=== PATIENT | female | born 1995 | race Caucasian/White ===

== ENCOUNTER 2018-12-03 08:57 | Emergency (ER) | payer MEDICAID, OTHER ==
[~2018-12-03] VITALS: Ht 165.1 cm; Wt 63.5 kg
--- OUTSIDE RECORDS SUMMARY | 2018-12-03 09:02 | XMS REPORT ---
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 [address] [facility] [id number] [address] Jan, IMMUNIZATIONS No Known Immunizations SOCIAL HISTORY Never Assessed REASON FOR VISIT Requests return call PLAN OF CARE VITAL SIGNS MEDICATIONS Unknown Medications RESULTS No Results PROCEDURES No Known procedures INSTRUCTIONS MEDICATIONS ADMINISTERED No Known Medications
[2018-12-03] MEDS ORDERED: NS IV 1000 ML 1,000 ML IV ONE (09:26)
[2018-12-03] MEDS ORDERED: FAMOTIDINE 20MG/2ML IV (PEPCID) IVP ONE (09:30)
[2018-12-03] MEDS ORDERED: ANTACID SUSP 30 ML UDC (MYLANTA) PO ONE (09:30)
[2018-12-03] MEDS ORDERED: ONDANSETRON 4 MG/2 ML (SDV) Z0FRAN IVP ONE (09:30)
[2018-12-03] MEDS ORDERED: LIDOCAINE 2% VISCOUS 15 ML UDC PO ONE (09:30)
[2018-12-03 09:43] LABS: BASOPHILS # (AUTO) 0.1 10^3/uL (0.0-0.1); BASOPHILS % (AUTO) 1 % (0-10); EOSINOPHILS # (AUTO) 0.1 10^3/uL (0.0-0.3); EOSINOPHILS % (AUTO) 1 % (0-10); HEMATOCRIT 45 % (35-52); HEMOGLOBIN 14.5 G/DL (11.5-16.0); LYMPHOCYTES # (AUTO) 2.8 X 10^3 (1.0-4.0); LYMPHOCYTES % (AUTO) 39 % (12-44); MEAN CORPUSCULAR HEMOGLOBIN 28 PG (25-34); MEAN CORPUSCULAR HGB CONC 32 G/DL (32-36); MEAN CORPUSCULAR VOLUME 88 FL (80-99); MEAN PLATELET VOLUME 10.8 FL (7.4-10.4); MONOCYTES # (AUTO) 0.8 X 10^3 (0.0-1.0); MONOCYTES % (AUTO) 11 % (0-12); NEUTROPHILS # (AUTO) 3.5 X 10^3 (1.8-7.8); NEUTROPHILS % (AUTO) 49 % (42-75); PLATELET COUNT 244 10^3/uL (130-400); RED CELL DISTRIBUTION WIDTH 14.3 % (10.0-14.5); WHITE BLOOD COUNT 7.2 10^3/uL (4.3-11.0)
[2018-12-03 09:47] LABS: ALANINE AMINOTRANSFERASE 35 U/L (0-55); ALBUMIN 4.5 GM/DL (3.2-4.5); ALKALINE PHOSPHATASE 72 U/L (40-136); BILIRUBIN,TOTAL 0.6 MG/DL (0.1-1.0); BUN/CREATININE RATIO 18; CALCIUM 9.7 MG/DL (8.5-10.1); CARBON DIOXIDE 23 MMOL/L (21-32); CHLORIDE 106 MMOL/L (98-107); CREATININE SERUM 0.67 MG/DL (0.60-1.30); GFR ESTIMATED > 60; GLUCOSE 92 MG/DL (70-105); LIPASE 22 U/L (8-78); POTASSIUM 4.1 MMOL/L (3.6-5.0); SODIUM 137 MMOL/L (135-145); TOTAL PROTEIN 7.5 GM/DL (6.4-8.2)
[2018-12-03 09:59] LABS: BILIRUBIN,URINE NEGATIVE (NEGATIVE); CLARITY,URINE CLEAR; COLOR,URINE YELLOW; GLUCOSE, URINE (UA) NEGATIVE (NEGATIVE); KETONES,URINE NEGATIVE (NEGATIVE); LEUKOCYTE ESTERASE ,URINE 1+ (NEGATIVE); NITRITE,URINE NEGATIVE (NEGATIVE); PH,URINE 7 (5-9); PROTEIN,URINE NEGATIVE (NEGATIVE); UROBILINOGEN,URINE NORMAL (NORMAL)
[2018-12-03 10:07] LABS: BACTERIA,URINE NEGATIVE /HPF
--- NOTE | 2018-12-03 10:31 | NUR ---
PT CONTINUES TO COMPLAIN OF PAIN. NOTIFGABRIELLA.
[2018-12-03] MEDS ORDERED: fentaNYL INJECTION 100 MCG/2 ML AMP IVP ONE (10:45)
--- NOTE | 2018-12-03 11:11 | NUR ---
PT STATES SHE IS FEELING BETTER AFTER THE FENTENYL.
--- NOTE | 2018-12-03 11:28 | Diagnostic Imaging Report ---
EXAM: RIGHT UPPER QUADRANT ULTRASOUND DATE: December 03, 2018. COMPARISON: None. INDICATION: 23-year-old female, abdominal pain. PROCEDURE: Two-dimensional grayscale and color doppler ultrasound examination of the right upper quadrant is performed. FINDINGS: Liver: The liver is of normal size and echotexture without solid or cystic masses. Bile ducts and gallbladder: There is no pericholecystic fluid, gallbladder wall thickening or gallstones. The gallbladder wall measures 0.2 cm. There is no intrahepatic or extrahepatic biliary ductal dilation. The common bile duct measures 0.4 cm. Right kidney: Unremarkable right kidney. No hydronephrosis. The right kidney measures 9.8 cm x 4.3 cm x 5.6 cm. Pancreas: The pancreas is not well seen. IMPRESSION: 1. The pancreas is not well seen. 2. Additional right upper quadrant ultrasound evaluation is unremarkable. Dictated by: Dictated on workstation # [id number]
[2018-12-03] MEDS ORDERED: FAMO-119 PO (11:43)
[2018-12-03] MEDS ORDERED: OMEP20TA7 PO (11:43)
--- NOTE | 2018-12-03 11:45 | ED Abdominal Pain ---
General Chief Complaint: Abdominal/GI Problems Stated Complaint: ABD PAIN Nursing Triage Note: ABD PAIN WITH VOMITING STARTING LAST NIGHT. STATES SHE DRANK TWO DAYS AGO AND HAS A HX OF STOMACH ULCERS. Sepsis Screen: No Definite Risk Source of Information: Patient Exam Limitations: No Limitations History of Present Illness Date Seen by Provider: December 03, 2018 Time Seen by Provider: 09:13 Initial Comments This 23-year-old young lady presents to the emergency room with complaints of epigastric pain and nausea. Pain started around 22:00 last night. She does have a history of suspected ulcers and has had similar episodes previously. She notes pain is particularly associated with alcohol consumption. She did drink alcohol the evening of November 29. She took ibuprofen this morning without benefit. She has not had anything to eat or drink this morning. She also reports increased stress with a in the family. Last visual period was November 11. She denies any nausea at this time. She has no local primary care provider. Allergies and Home Medications Allergies Coded Allergies: Penicillins (Verified Allergy, Unknown, 12/03/18) vancomycin (Verified Allergy, Unknown, 12/03/18) Home Medications Famotidine 20 Mg Tablet, 20 MG PO BID Prescribed by: ZOEY RODRIGUEZ on 12/03/18 1143 Hydrocodone Bit/Acetaminophen 1 Tab Tab, 1 EACH PO Q4-6HR PRN for PAIN-MODERATE Prescribed by: ZOEY RODRIGUEZ on 12/03/18 1148 Omeprazole 20 Mg Tablet.dr, 20 MG PO BID Prescribed by: ZOEY RODRIGUEZ on 12/03/18 1143 Patient Home Medication List Home Medication List Reviewed: Yes Review of Systems Review of Systems Constitutional: no symptoms reported EENTM: No Symptoms Reported Respiratory: No Symptoms Reported Cardiovascular: No Symptoms Reported Gastrointestinal: See HPI Genitourinary: No Symptoms Reported Musculoskeletal: no symptoms reported Skin: no symptoms reported Psychiatric/Neurological: No Symptoms Reported Endocrine: No Symptoms Reported Hematologic/Lymphatic: No Symptoms Reported Past Refbgic-Riggzo-Bnahvb Hx Past Med/Social Hx: Reviewed and Corrections made Patient Social History Alcohol Use: Occasionally Uses Recreational Drug Use: No 2nd Hand Smoke Exposure: Yes Recent Foreign Travel: No Contact w/Someone Who Travel: No Recent Infectious Disease Expo: No Past Medical History Surgeries: Yes Orthopedic (elbow) Respiratory: No Cardiac: No Neurological: No : No Last Menstrual Period: Nov 11, 2018 Genitourinary: No Gastrointestinal: Yes Ulcer, Irritable Bowel Musculoskeletal: No Endocrine: No HEENT: No Cancer: No Psychosocial: No Integumentary: No Physical Exam Vital Signs Vital Signs - First Documented 12/03/18 09:01 Temp 98.1 Pulse 72 Resp 16 B/P (MAP) 122/69 (86) Pulse Ox 99 O2 Delivery Room Air Capillary Refill : Less Than 3 Seconds Height/Weight/BMI Height: 5'5.00" Weight: 140lbs. oz. 63.890406si; BMI Method:Stated General Appearance: WD/WN, mild distress HEENT: PERRL/EOMI, normal ENT inspection, pharynx normal Neck: normal inspection Respiratory: lungs clear, normal breath sounds, no respiratory distress, no accessory muscle use Cardiovascular: regular rate, rhythm, no edema, no murmur Gastrointestinal: normal bowel sounds, soft, tenderness (epigastrium) Extremities: normal inspection, no pedal edema Neurologic/Psychiatric: package liner II-XII nml as tested, no motor/sensory deficits, alert, normal mood/affect, oriented x 3 Skin: normal color, warm/dry Progress/Results/Core Measures Results/Orders Lab Results Laboratory Tests Test 12/03/18 09:15 12/03/18 09:50 Range/Units White Blood Count 7.2 4.3-11.0 10^3/uL Red Blood Count 5.11 4.35-5.85 10^6/uL Hemoglobin 14.5 11.5-16.0 G/DL Hematocrit 45 35-52 % Mean Corpuscular Volume 88 80-99 FL Mean Corpuscular Hemoglobin 28 25-34 PG Mean Corpuscular Hemoglobin Concent 32 32-36 G/DL Red Cell Distribution Width 14.3 10.0-14.5 % Platelet Count 244 130-400 10^3/uL Mean Platelet Volume 10.8 H 7.4-10.4 FL Neutrophils (%) (Auto) 49 42-75 % Lymphocytes (%) (Auto) 39 12-44 % Monocytes (%) (Auto) 11 0-12 % Eosinophils (%) (Auto) 1 0-10 % Basophils (%) (Auto) 1 0-10 % Neutrophils # (Auto) 3.5 1.8-7.8 X 10^3 Lymphocytes # (Auto) 2.8 1.0-4.0 X 10^3 Monocytes # (Auto) 0.8 0.0-1.0 X 10^3 Eosinophils # (Auto) 0.1 0.0-0.3 10^3/uL Basophils # (Auto) 0.1 0.0-0.1 10^3/uL Sodium Level 137 135-145 MMOL/L Potassium Level 4.1 3.6-5.0 MMOL/L Chloride Level 106 98-107 MMOL/L Carbon Dioxide Level 23 21-32 MMOL/L Anion Gap 8 5-14 MMOL/L Blood Urea Nitrogen 12 7-18 MG/DL Creatinine 0.67 0.60-1.30 MG/DL Estimat Glomerular Filtration Rate > 60 BUN/Creatinine Ratio 18 Glucose Level 92 70-105 MG/DL Calcium Level 9.7 8.5-10.1 MG/DL Corrected Calcium 9.3 8.5-10.1 MG/DL Total Bilirubin 0.6 0.1-1.0 MG/DL Aspartate Amino Transf (AST/SGOT) 25 5-34 U/L Alanine Aminotransferase (ALT/SGPT) 35 0-55 U/L Alkaline Phosphatase 72 40-136 U/L Total Protein 7.5 6.4-8.2 GM/DL Albumin 4.5 3.2-4.5 GM/DL Lipase 22 8-78 U/L Serum Test, Qualitative NEGATIVE NEGATIVE Serum Alcohol < 10 <10 MG/DL Urine Color YELLOW Urine Clarity CLEAR Urine pH 7 5-9 Urine Specific [place] 1.010 L 1.016-1.022 Urine Protein NEGATIVE NEGATIVE Urine Glucose (UA) NEGATIVE NEGATIVE Urine Ketones NEGATIVE NEGATIVE Urine Nitrite NEGATIVE NEGATIVE Urine Bilirubin NEGATIVE NEGATIVE Urine Urobilinogen NORMAL NORMAL MG/DL Urine Leukocyte Esterase 1+ H NEGATIVE Urine RBC (Auto) NEGATIVE NEGATIVE Urine RBC NONE /HPF Urine WBC NONE /HPF Urine Squamous Epithelial Cells 10-25 H /HPF Urine Crystals NONE /LPF Urine Bacteria NEGATIVE /HPF Urine Casts NONE /LPF Urine Mucus NEGATIVE /LPF Urine Culture Indicated NO My Orders Orders - ZOEY HEATH MD Ua Culture If Indicated (12/03/18 09:13) Famotidine Injection (Pepcid Injection) (12/03/18 09:30) Ondansetron Injection (Zofran Injectio (12/03/18 09:30) Lidocaine 2% Viscous 15 Ml (Xylocaine Vi (12/03/18 09:30) Antacid Suspension (Mylanta Suspension (12/03/18 09:30) Alcohol (12/03/18 09:26) Cbc With Automated Diff (12/03/18 09:26) Comprehensive Metabolic Panel (12/03/18 09:26) Hcg,Qualitative Serum (12/03/18 09:26) Lipase (12/03/18 09:26) Ed Iv/Invasive Line Start (12/03/18 09:26) Ns Iv 1000 Ml (Sodium Chloride 0.9%) (12/03/18 09:26) Fentanyl Injection (Sublimaze Injection (12/03/18 10:45) Us Gallbladder [id number] (12/03/18 10:32) Medications Given in ED Current Medications Medications Dose Ordered Sig/Aileen Route Start Time Stop Time Status Last Admin Dose Admin Al Hydrox/Mg Hydrox/Simethicone 30 ml ONCE ONCE PO 12/03/18 09:30 12/03/18 09:31 DC 12/03/18 09:47 30 ML Famotidine 20 mg ONCE ONCE IVP 12/03/18 09:30 12/03/18 09:31 DC 12/03/18 09:33 20 MG Fentanyl Citrate 50 mcg ONCE ONCE IVP 12/03/18 10:45 12/03/18 10:46 DC 12/03/18 10:37 50 MCG Lidocaine HCl 15 ml ONCE ONCE PO 12/03/18 09:30 12/03/18 09:31 DC 12/03/18 09:47 15 ML Ondansetron HCl 8 mg ONCE ONCE IVP 12/03/18 09:30 12/03/18 09:31 DC 12/03/18 09:32 8 MG Sodium Chloride 1,000 ml @ 0 mls/hr Q0M ONCE IV 12/03/18 09:26 12/03/18 09:28 DC 12/03/18 09:32 1,000 MLS/HR Vital Signs/I&O 12/03/18 12/03/18 09:01 12:02 Temp 98.1 Pulse 72 74 Resp 16 16 B/P (MAP) 122/69 (86) 104/65 (78) Pulse Ox 99 97 O2 Delivery Room Air Room Air Blood Pressure Mean: 86 Progress Progress Note : Progress Note Lab workup was unremarkable. Patient was treated with Zofran, Pepcid, and GI cocktail. This provided brief relief but pain rebounded. Fentanyl was given for further pain control. She was hydrated with 1 L of IV normal saline. Gallbladder ultrasound showed no abnormalities. Patient is felt to likely have gastritis and/or GERD. Diagnostic Imaging Diagonstic Imaging: Ultrasound Plain Films/CT/US/NM/MRI: abdomen Comments NAME: [facility] REC#: [id number] PT STATUS: REG ER : 1995 PHYSICIAN: ZOEY HEATH MD ADMIT DATE: 12/03/18/ER Signed Date of Exam: 12/03/18 [place] GALLBLADDER [id number] EXAM: RIGHT UPPER QUADRANT ULTRASOUND DATE: December 03, 2018. COMPARISON: None. INDICATION: 23-year-old female, abdominal pain. PROCEDURE: Two-dimensional grayscale and color doppler ultrasound examination of the right upper quadrant is performed. FINDINGS: Liver: The liver is of normal size and echotexture without solid or cystic masses. Bile ducts and gallbladder: There is no pericholecystic fluid, gallbladder wall thickening or gallstones. The gallbladder wall measures 0.2 cm. There is no intrahepatic or extrahepatic biliary ductal dilation. The common bile duct measures 0.4 cm. Right kidney: Unremarkable right kidney. No hydronephrosis. The right kidney measures 9.8 cm x 4.3 cm x 5.6 cm. Pancreas: The pancreas is not well seen. IMPRESSION: 1. The pancreas is not well seen. 2. Additional right upper quadrant ultrasound evaluation is unremarkable. Dictated by: Dictated on workstation # [id number] Dict: 12/03/18 1120 Trans: 12/03/18 1152 Interpreted by: SELINA SHAW MD Electronically signed by: SELINA SHAW MD 12/03/18 1152 Departure Impression Primary Impression: Epigastric pain Disposition: 01 HOME, SELF-CARE Condition: Improved Departure-Patient Inst. Decision time for Depature: 11:40 Referrals: NO,LOCAL PHYSICIAN (PCP) Primary Care Physician Patient Instructions: Acute Abdomen (Belly Pain), Adult (DC) Add. Discharge Instructions: Take omeprazole and Pepcid (famotidine) as prescribed. Complete at least 2 weeks of these medications. You may use Tylenol (acetaminophen) for mild pain. For more severe pain, use hydrocodone as prescribed. Follow-up with a primary care provider soon as possible. Return to care if symptoms are worsening despite treatment. Avoid the following: Eating large meals, eating close to bedtime, caffeine, chocolate, carbonation, alcohol, mints, tomato products, tobacco of any kind, spicy foods, NSAID medications such as ibuprofen or naproxen, fatty or greasy foods, or anything else you know irritates your stomach. All discharge instructions reviewed with patient and/or family. Voiced understanding. Scripts Hydrocodone Bit/Acetaminophen (Hydrocodone/Acetaminophen 5/325mg Tablet) 1 Tab Tab 1 EACH PO Q4-6HR PRN for PAIN-MODERATE MDD 10, #8 TAB Prov: ZOEY HEATH MD 12/03/18 Omeprazole (Omeprazole) 20 Mg Tablet.dr 20 MG PO BID, #30 TAB Prov: ZOEY HEATH MD 12/03/18 Famotidine (Pepcid) 20 Mg Tablet 20 MG PO BID, #30 TAB Prov: ZOEY HEATH MD 12/03/18 ZOEY HEATH MD December 03, 2018 11:45
[2018-12-03] MEDS ORDERED: ACHD5005 PO (11:48)
--- NOTE | 2018-12-03 11:53 | NUR ---
IN TALKING TO THE PT AT THIS TIME.
[2018-12-03 12:02] VITALS: BP 104/65
== END 2018-12-03 12:02 | disposition home or self-care (01) ==
LOC: EDUNIT# 08:57 → ER 08:59
DX: R10.13 Epigastric pain (principal); K58.9 Irritable bowel syndrome, unspecified; Z88.0 Allergy status to penicillin; Z88.1 Allergy status to other antibiotic agents; Z77.22 Contact with and (suspected) exposure to environmental tobacco smoke (acute) (chronic); Z87.19 Personal history of other diseases of the digestive system
CPT/HCPCS: 36415; 76705; 80053; 80320; 81000; 83690; 84703; 85025; 96361; 96374; 96375

== ENCOUNTER 2019-01-11 01:54 | Emergency (ER) | payer MEDICAID ==
[~2019-01-11] VITALS: Ht 163.8 cm; Wt 65.8 kg
[~2019-01-11 01:54] MED LIST: ACHD5005 PO; FAMO-119 PO; OMEP20TA7 PO
--- OUTSIDE RECORDS SUMMARY | 2019-01-11 02:01 | XMS REPORT | Continuity of Care Document ---
Author Organization Unknown Address Unknown Allergies Active Description Code Type Severity Reaction Onset Reported/Identified Relationship to Patient Clinical Status Yes Penicillins [id number] Drug Allergy Unknown N/A 12/03/2018 Yes vancomycin [id number] Drug Allergy Unknown N/A 12/03/2018 Medications There is no data. Problems Date Dx Coded Attending Type Code Diagnosis Diagnosed By 12/03/2018 ZOEY HEATH MD, Ot K58.9 IRRITABLE BOWEL SYNDROME WITHOUT DIARRHE 12/03/2018 ZOEY HEATH MD Ot R10.13 EPIGASTRIC PAIN 12/03/2018 ZOEY HEATH MD Ot Z77.22 CNTCT W AND EXPSR TO ENVIRON TOBACCO SMO 12/03/2018 ZOEY HEATH MD, Ot Z87.19 PERSONAL HISTORY OF OTHER DISEASES OF TH 12/03/2018 ZOEY HEATH MD Ot Z88.0 ALLERGY STATUS TO PENICILLIN 12/03/2018 ZOEY HEATH MD Ot Z88.1 ALLERGY STATUS TO OTHER ANTIBIOTIC AGENT 12/06/2018 ZOEY HEATH MD, Ot K58.9 IRRITABLE BOWEL SYNDROME WITHOUT DIARRHE 12/06/2018 ZOEY HEATH MD Ot R10.13 EPIGASTRIC PAIN 12/06/2018 ZOEY HEATH MD Ot Z77.22 CNTCT W AND EXPSR TO ENVIRON TOBACCO SMO 12/06/2018 ZOEY HEATH MD Ot Z87.19 PERSONAL HISTORY OF OTHER DISEASES OF 12/06/2018 ZOEY HEATH MD Ot Z88.0 ALLERGY STATUS TO PENICILLIN 12/06/2018 ZOEY HEATH MD Ot Z88.1 ALLERGY STATUS TO OTHER ANTIBIOTIC AGENT Procedures There is no data. Results Test Result Range Serum or plasma choriogonadotropin ( test) detection - 12/03/18 09:15 Serum or plasma choriogonadotropin ( test) detection NEGATIVE NEGATIVE Complete blood count (CBC) with automated white blood cell (WBC) differential - 12/03/18 09:15 Blood leukocytes automated count (number/volume) 7.2 10*3/uL 4.3-11.0 Blood erythrocytes automated count (number/volume) 5.11 10*6/uL 4.35-5.85 Venous blood hemoglobin measurement (mass/volume) 14.5 g/dL 11.5-16.0 Blood hematocrit (volume fraction) 45 % 35-52 Automated erythrocyte mean corpuscular volume 88 [foz_us] 80-99 Automated erythrocyte mean corpuscular hemoglobin (mass per erythrocyte) 28 pg 25-34 Automated erythrocyte mean corpuscular hemoglobin concentration measurement (mass/volume) 32 g/dL 32-36 Automated erythrocyte distribution width ratio 14.3 % 10.0- 14.5 Automated blood platelet count (count/volume) 244 10*3/uL 130-400 Automated blood platelet mean volume measurement 10.8 [foz_us] 7.4-10.4 Automated blood neutrophils/100 leukocytes 49 % 42-75 Automated blood lymphocytes/100 leukocytes 39 % 12-44 Blood monocytes/100 leukocytes 11 % 0-12 Automated blood eosinophils/100 leukocytes 1 % 0-10 Automated blood basophils/100 leukocytes 1 % 0-10 Blood neutrophils automated count (number/volume) 3.5 10*3 1.8-7.8 Blood lymphocytes automated count (number/volume) 2.8 10*3 1.0-4.0 Blood monocytes automated count (number/volume) 0.8 10*3 0.0- 1.0 Automated eosinophil count 0.1 10*3/uL 0.0-0.3 Automated blood basophil count (count/volume) 0.1 10*3/uL 0.0-0.1 Comprehensive metabolic panel - 12/03/18 09:15 Serum or plasma sodium measurement (moles/volume) 137 mmol/L 135-145 Serum or plasma potassium measurement (moles/volume) 4.1 mmol/L 3.6-5.0 Serum or plasma chloride measurement (moles/volume) 106 mmol/L 98-107 Carbon dioxide 23 mmol/L 21-32 Serum or plasma anion gap determination (moles/volume) 8 mmol/L 5-14 Serum or plasma urea nitrogen measurement (mass/volume) 12 mg/dL 7-18 Serum or plasma creatinine measurement (mass/volume) 0.67 mg/dL 0.60-1.30 Serum or plasma urea nitrogen/creatinine mass ratio 18 NRG Serum or plasma creatinine measurement with calculation of estimated glomerular filtration rate > NRG Serum or plasma glucose measurement (mass/volume) 92 mg/dL 70-105 Serum or plasma calcium measurement (mass/volume) 9.7 mg/dL 8.5-10.1 Serum or plasma total bilirubin measurement (mass/volume) 0.6 mg/dL 0.1-1.0 Serum or plasma alkaline phosphatase measurement (enzymatic activity/volume) 72 U/L 40-136 Serum or plasma aspartate aminotransferase measurement (enzymatic activity/volume) 25 U/L 5-34 Serum or plasma alanine aminotransferase measurement (enzymatic activity/volume) 35 U/L 0-55 Serum or plasma protein measurement (mass/volume) 7.5 g/dL 6.4-8.2 Serum or plasma albumin measurement (mass/volume) 4.5 g/dL 3.2-4.5 CALCIUM CORRECTED 9.3 mg/dL 8.5-10.1 Lipase - 12/03/18 09:15 Lipase 22 U/L 8-78 Serum or plasma ethanol measurement (mass/volume) - 12/03/18 09:15 Serum or plasma ethanol measurement (mass/volume) < mg/dL <10 Complete urinalysis with reflex to culture - 12/03/18 09:50 Urine color determination YELLOW NRG Urine clarity determination CLEAR NRG Urine pH measurement by test strip 7 5-9 Specific gravity of urine by test strip 1.010 1.016-1.022 Urine protein assay by test strip, semi-quantitative NEGATIVE NEGATIVE Urine glucose detection by automated test strip NEGATIVE NEGATIVE Erythrocytes detection in urine sediment by light microscopy NEGATIVE NEGATIVE Urine ketones detection by automated test strip NEGATIVE NEGATIVE Urine nitrite detection by test strip NEGATIVE NEGATIVE Urine total bilirubin detection by test strip NEGATIVE NEGATIVE Urine urobilinogen measurement by automated test strip (mass/volume) NORMAL NORMAL Urine leukocyte esterase detection by dipstick 1+ NEGATIVE Automated urine sediment erythrocyte count by microscopy (number/high power field) NONE NRG Automated urine sediment leukocyte count by microscopy (number/high power field) NONE NRG Bacteria detection in urine sediment by light microscopy NEGATIVE NRG Squamous epithelial cells detection in urine sediment by light microscopy 10-25 NRG Crystals detection in urine sediment by light microscopy NONE NRG Casts detection in urine sediment by light microscopy NONE NRG Mucus detection in urine sediment by light microscopy NEGATIVE NRG Complete urinalysis with reflex to culture NO NRG Encounters ACCT No. Visit Date/Time Discharge Status Pt. Type Provider Facility Loc./Unit Complaint [id number] 12/03/2018 08:59:00 12/03/2018 23:59:59 CLS Emergency KUMAR ROBERTS, ZOEY Pichardo [facility] ER ABD PAIN
--- NOTE | 2019-01-11 02:13 | ED Upper Extremity ---
General Stated Complaint: FELL ON BROKEN ARM AT THE PARK Source: patient (PT BELLIGERENT, AND CURSING) Exam Limitations: intoxication History of Present Illness Date Seen by Provider: Jan 11, 2019 Time Seen by Provider: 01:59 Initial Comments PT ARRIVES VIA POV FROM HOME WITH A MALE AND HER MOTHER, WHO APPEAR INTOXICATED WELL PT--EXTREMELY LOUD PT STATES SHE WAS RUNNING IN THE PARK AND FELL, LANDING ON HER LEFT ARM OCCURRED APPROXIMATELY 2 HOURS AGO C/O PAIN FROM SHOULDER TO WRIST, BUT MOST PAIN IS AROUND ELBOW DENIES PARESTHESIAS OR MOTOR DEFICITS NO OTHER INJURIES OR AREAS OF PAIN PT HAS BEEN DRINKING ALCOHOL TONIGHT "5 BEERS" PT HAS HAD PRIOR FRACTURE OF LEFT ELBOW 5 YEARS AGO AND HAD PINS TO AREA PT IS LEFT HANDED PCP: NONE PSYCH: [place] Allergies and Home Medications Allergies Coded Allergies: Penicillins (Verified Allergy, Unknown, 01/11/19) vancomycin (Verified Allergy, Unknown, 01/11/19) Home Medications Famotidine 20 Mg Tablet, 20 MG PO BID Prescribed by: ZOEY RODRIGUEZ on 12/03/18 1143 Naproxen 500 Mg Tablet, 500 MG PO BID Prescribed by: CHANELLE BYNUM on 01/11/19 0254 Tramadol HCl 50 Mg Tablet, 50 MG PO Q4H PRN for PAIN-MODERATE Prescribed by: CHANELLE BYNUM on 01/11/19 0254 Patient Home Medication List Home Medication List Reviewed: Yes Review of Systems Constitutional: no symptoms reported : No LMP: Jan 11, 2019 Control/STD Prophylaxis: None Musculoskeletal: see HPI Skin: no symptoms reported Psychiatric/Neurological: No Symptoms Reported Past Pmdocil-Bnaxga-Utmyew Hx Patient Social History Alcohol Use: Regular Use (HEAVY AT TIMES) Recreational Drug Use: No Smoking Status: Current Everyday Smoker (< 1/2 PPD) Type Used: Cigarettes 2nd Hand Smoke Exposure: Yes Recent Foreign Travel: No Contact w/Someone Who Travel: No Past Medical History Surgeries: Yes (LEFT ELBOW FX/ ORIF) Orthopedic Respiratory: No Cardiac: No Neurological: No : No Reproductive Disorders: No Genitourinary: No Gastrointestinal: Yes Ulcer, Irritable Bowel Musculoskeletal: Yes (LEFT ELBOW FX/ORIF) Fractures Endocrine: No HEENT: No Cancer: No Psychosocial: No Integumentary: No Physical Exam Vital Signs Vital Signs - First Documented 01/11/19 02:00 Temp 96.8 Pulse 88 Resp 18 B/P (MAP) 121/62 (81) Pulse Ox 98 Capillary Refill : Height, Weight, BMI Height: 5'5.00" Weight: 140lbs. oz. 63.072959na; BMI Method:Stated General Appearance: other (BELLIGERENT, CURSING, WAILING, SOBBING, SCREAMING, TALKING VERY LOUDLY. SPEECH CLEAR, GAIT STEADY. REEKS OF ETOH. 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 NO SWELLING, OR BRUISING OR ABRASIONS, ETC. MOTOR/SENSORY/VASCULAR INTACT. Procedures/Interventions Splinting and Joint Reduction : Arm Sling: Waterflow Progress/Results/Core Measures Results/Orders My Orders Orders - CHANELLE BYNUM DO Forearm, Left, 2 Views (01/11/19 02:07) Humerus, Left, 2 Views (01/11/19 02:07) Elbow, Left, 3 Views (01/11/19 02:07) Ed Ortho Supplies Order (01/11/19 02:46) Naproxen Tablet (Naprosyn Tablet) (01/11/19 03:00) Medications Given in ED Current Medications Medications Dose Ordered Sig/Aileen Route Start Time Stop Time Status Last Admin Dose Admin Naproxen 500 mg ONCE ONCE PO 01/11/19 03:00 01/11/19 03:01 DC 01/11/19 03:01 500 MG Vital Signs/I&O 01/11/19 01/11/19 02:00 03:06 Temp 96.8 96.8 Pulse 88 88 Resp 18 18 B/P (MAP) 121/62 (81) 121/62 (81) Pulse Ox 98 98 Diagnostic Imaging Comments XRAYS; ALL PENDING RADIOLOGIST REVIEW LEFT HUMERUS-NO ACUTE PROCESS LEFT ELBOW--NO ACUTE PROCESS LEFT FOREARM--NO ACUTE PROCESS HARD HERNANDEZ ALL APPEARS TO BE INTACT Reviewed: Reviewed by Me Departure Impression Primary Impression: LEFT ARM AND ELBOW CONTUSION / SPRAIN Disposition: HOME, SELF-CARE Condition: Stable Departure-Patient Inst. Referrals: NO,LOCAL PHYSICIAN (PCP) Primary Care Physician MARITZA SUN DO Patient Instructions: Contusion (DC), How to Use a Shoulder Sling, Elbow Sprain (DC) Add. Discharge Instructions: ICE TO AREA AT 20 MINUTE INTERVALS WEAR SLING AT ALL TIMES FOLLOW UP WITH ORTHOPEDICS NEXT WEEK FOR FURTHER CARE Scripts Tramadol HCl (Ultram) 50 Mg Tablet 50 MG PO Q4H PRN for PAIN-MODERATE for 3 Days, TAB Prov: CHANELLE BYNUM DO 01/11/19 Naproxen (Naproxen) 500 Mg Tablet 500 MG PO BID, #20 TAB Prov: CHANELLE BYNUM DO 01/11/19 CHANELLE BYNUM DO Jan 11, 2019 02:13
[2019-01-11] MEDS ORDERED: DULO60CA58 (02:27)
[2019-01-11] MEDS ORDERED: TRAZ-222 (02:27)
[2019-01-11] MEDS ORDERED: TRAM-42 PO (02:54)
[2019-01-11] MEDS ORDERED: NAPR-915 PO (02:54)
[2019-01-11] MEDS ORDERED: NAPROXEN 250 MG (NAPROSYN) TABLET PO ONE (03:00)
[2019-01-11 03:06] VITALS: BP 121/62
--- NOTE | 2019-01-11 08:08 | Diagnostic Imaging Report ---
INDICATION: Pain. FINDINGS: Two-view left forearm show no fracture, dislocation or acute articular incongruity. There are postoperative changes to the distal humerus. IMPRESSION: No acute appearing abnormality. Dictated by: Dictated on workstation # [id number]
--- NOTE | 2019-01-11 08:09 | Diagnostic Imaging Report ---
INDICATION: Pain. FINDINGS: Postoperative changes to the distal humerus are present. The alignment is anatomic. Proximal radius and ulna intact. The articular surfaces smooth. Minute punctate radiopacities about the distal aspect of the arm above the elbow joint present of uncertain etiology. IMPRESSION: Intact elbow. No fracture line visualized. Minute punctate radiopacities adjacent to the distal humerus of uncertain etiology. Dictated by: Dictated on workstation # [id number]
--- NOTE | 2019-01-11 08:12 | Diagnostic Imaging Report ---
INDICATION: No history provided. FINDINGS: Postsurgical changes of the distal humerus. Alignment is anatomic and no residual fracture line. The midshaft and proximal humerus and elbow appeared intact. The glenohumeral joint unremarkable. Soft tissue minute radiopacities of less than a millimeter scattered about the distal arm medial and posterior to the distal humerus of uncertain etiology. No gas. No focal swelling. IMPRESSION: Intact distal humeral surgical repair. No acute or residual fracture line. Dictated by: Dictated on workstation # [id number]
== END 2019-01-11 03:06 | disposition home or self-care (01) ==
LOC: EDUNIT# 01:54 → ER 01:57
DX: S53.402A Unspecified sprain of left elbow, initial encounter (principal); S40.022A Contusion of left upper arm, initial encounter; K58.9 Irritable bowel syndrome, unspecified; F17.210 Nicotine dependence, cigarettes, uncomplicated; Z88.0 Allergy status to penicillin; Z87.19 Personal history of other diseases of the digestive system; Z88.1 Allergy status to other antibiotic agents; Z98.890 Other specified postprocedural states; W18.30XA Fall on same level, unspecified, initial encounter; Y92.830 Public park as the place of occurrence of the external cause; Y93.02 Activity, running
CPT/HCPCS: 73060; 73080; 73090

== ENCOUNTER 2019-09-27 22:59 | Emergency (ER) | payer MEDICAID ==
[~2019-09-27] VITALS: Ht 162 cm; Wt 65.8 kg
[~2019-09-27 22:59] MED LIST changes: +DULO60CA59; +NAPR-915 PO; +TRAM-42 PO; +TRZ50T
[2019-09-27] MEDS ORDERED: FAMOTIDINE 20MG/2ML IV (PEPCID) IV STA (23:12)
[2019-09-27] MEDS ORDERED: ANTACID SUSP 30 ML UDC (MYLANTA) PO ONE (23:15)
[2019-09-27] MEDS ORDERED: LIDOCAINE 2% VISCOUS 15 ML UDC PO ONE (23:15)
[2019-09-27] MEDS ORDERED: ONDANSETRON 4 MG/2 ML (SDV) Z0FRAN IVP ONE (23:15)
[2019-09-27 23:16] LABS: BACTERIA,URINE LARGE /HPF; BILIRUBIN,URINE NEGATIVE (NEGATIVE); CLARITY,URINE CLEAR; COLOR,URINE YELLOW; GLUCOSE, URINE (UA) NEGATIVE (NEGATIVE); KETONES,URINE NEGATIVE (NEGATIVE); LEUKOCYTE ESTERASE ,URINE NEGATIVE (NEGATIVE); NITRITE,URINE NEGATIVE (NEGATIVE); PH,URINE 7.5 (5-9); PROTEIN,URINE NEGATIVE (NEGATIVE); WBC,URINE 0-2 /HPF
--- NOTE | 2019-09-27 23:19 | ED Abdominal Pain ---
General Stated Complaint: LOWER ABDOMINAL PAIN/NAUSEA AND VOMITTIN Source of Information: Patient Exam Limitations: No Limitations History of Present Illness Date Seen by Provider: Sep 27, 2019 Time Seen by Provider: 22:57 Initial Comments Patient presents to ER by private conveyance with chief complaint that sometime after 8:00 tonight when she had some margaritas at a [employer] restaurant she began to expand some epigastric pain. She says this happens in the past whenever she drinks alcohol. She's also been using ibuprofen a lot for the last several days because she's had a series of headaches. She was on Prilosec at one point but no longer. She has not tried taking any medications because she's been nauseated. She says in the past Tylenol and ibuprofen have not made her pain better. She has never had endoscopy or any abdominal surgeries done. No history of pancreatitis. She does have a history of gallbladder ultrasound from November 2018 which was negative. She said she did pursue further workup, HIDA scan in [place], [place]. She does not have a primary care doctor now. She denies any fever or diarrhea or sick contacts. She does not take any medications including control. Allergies and Home Medications Allergies Coded Allergies: Penicillins (Verified Allergy, Unknown, 01/11/19) vancomycin (Verified Allergy, Unknown, 01/11/19) Home Medications Famotidine 20 Mg Tablet, 20 MG PO BID Prescribed by: ZOEY RODRIGUEZ on 12/03/18 1143 Naproxen 500 Mg Tablet, 500 MG PO BID Prescribed by: CHANELLE BYNUM on 01/11/19 0254 Omeprazole 20 Mg Capsule.dr, 20 MG PO BID Prescribed by: SHRADDHA BUSTILLO on 09/28/1921 Ondansetron 4 Mg Tab.rapdis, 4 MG PO Q6H PRN for NAUSEA/VOMITING Prescribed by: SHRADDHA BSUTILLO on 09/28/1921 Sucralfate 1 Gm Tablet, 1 GM PO QIDACHS Prescribed by: SHRADDHA BUSTILLO on 09/28/1921 Tramadol HCl 50 Mg Tablet, 50 MG PO Q4H PRN for PAIN-MODERATE Prescribed by: CHANELLE BYNUM on 01/11/19 0254 Patient Home Medication List Home Medication List Reviewed: Yes Review of Systems Review of Systems Constitutional: No chills, No diaphoresis, No fever; malaise EENTM: No Blurred Vision, No Double Vision Respiratory: Denies Cough, Denies Shortness of Air Cardiovascular: Denies Chest Pain, Denies Edema Gastrointestinal: See HPI, Abdominal Pain; Denies Constipated, Denies Diarrhea; Nausea Genitourinary: Denies Burning, Denies Discharge Musculoskeletal: No back pain, No joint pain Psychiatric/Neurological: Denies Anxiety, Denies Depressed All Other Systems Reviewed Negative Unless Noted: Yes Past Zgaukwo-Qehgyl-Oyslgu Hx Patient Social History Alcohol Use: Regular Use Alcohol Beverage of Choice: Beer Recreational Drug Use: No Smoking Status: Current Everyday Smoker Type Used: Cigarettes (0.25 ppd) 2nd Hand Smoke Exposure: No Recent Foreign Travel: No Contact w/Someone Who Travel: No Past Medical History Surgeries: Yes (LEFT ELBOW FX/ ORIF) Orthopedic Respiratory: No Cardiac: No Neurological: No Reproductive Disorders: No Genitourinary: No Gastrointestinal: Yes Ulcer, Irritable Bowel Musculoskeletal: Yes (LEFT ELBOW FX/ORIF) Fractures Endocrine: No HEENT: No Cancer: No Psychosocial: No Integumentary: No Physical Exam Vital Signs Vital Signs - First Documented 09/27/19 23:05 Temp 36.7 Pulse 93 Resp 16 B/P (MAP) 117/73 (88) Pulse Ox 98 O2 Delivery Room Air Capillary Refill : Height/Weight/BMI Height: 5'4.50" Weight: 145lbs. oz. 65.612343wn; BMI Method:Stated General Appearance: WD/WN, mild distress HEENT: PERRL/EOMI, pharynx normal Neck: full range of motion, supple, normal inspection Respiratory: no respiratory distress, no accessory muscle use Cardiovascular: normal peripheral pulses, regular rate, rhythm Peripheral Pulses: 2+ Radial Pulses (R), 2+ Radial Pulses (L) Gastrointestinal: soft, guarding (epigastric); No rebound; tenderness (epigastric and right upper quadrant without Arcos sign), other (negative for mesenteric signs, heeltap, Rovsing or McBurney's point rebound tenderness) Extremities: normal inspection, normal capillary refill Neurologic/Psychiatric: alert, normal mood/affect, oriented x 3 Skin: normal color, warm/dry Progress/Results/Core Measures Results/Orders Lab Results Laboratory Tests Test 09/27/19 23:08 09/27/19 23:15 Range/Units Urine Color YELLOW Urine Clarity CLEAR Urine pH 7.5 5-9 Urine Specific [place] 1.020 1.016-1.022 Urine Protein NEGATIVE NEGATIVE Urine Glucose (UA) NEGATIVE NEGATIVE Urine Ketones NEGATIVE NEGATIVE Urine Nitrite NEGATIVE NEGATIVE Urine Bilirubin NEGATIVE NEGATIVE Urine Urobilinogen 0.2 < = 1.0 MG/DL Urine Leukocyte Esterase NEGATIVE NEGATIVE Urine RBC (Auto) 1+ H NEGATIVE Urine RBC 5-10 H /HPF Urine WBC 0-2 /HPF Urine Squamous Epithelial Cells 10-25 H /HPF Urine Crystals NONE /LPF Urine Bacteria LARGE H /HPF Urine Casts NONE /LPF Urine Mucus NEGATIVE /LPF Urine Culture Indicated YES White Blood Count 12.1 H 4.3-11.0 10^3/uL Red Blood Count 4.77 4.35-5.85 10^6/uL Hemoglobin 14.2 11.5-16.0 G/DL Hematocrit 43 35-52 % Mean Corpuscular Volume 89 80-99 FL Mean Corpuscular Hemoglobin 30 25-34 PG Mean Corpuscular Hemoglobin Concent 33 32-36 G/DL Red Cell Distribution Width 13.2 10.0-14.5 % Platelet Count 286 130-400 10^3/uL Mean Platelet Volume 10.4 7.4-10.4 FL Neutrophils (%) (Auto) 55 42-75 % Lymphocytes (%) (Auto) 36 12-44 % Monocytes (%) (Auto) 7 0-12 % Eosinophils (%) (Auto) 1 0-10 % Basophils (%) (Auto) 0 0-10 % Neutrophils # (Auto) 6.7 1.8-7.8 X 10^3 Lymphocytes # (Auto) 4.3 H 1.0-4.0 X 10^3 Monocytes # (Auto) 0.9 0.0-1.0 X 10^3 Eosinophils # (Auto) 0.1 0.0-0.3 10^3/uL Basophils # (Auto) 0.1 0.0-0.1 10^3/uL Sodium Level 141 135-145 MMOL/L Potassium Level 4.1 3.6-5.0 MMOL/L Chloride Level 102 98-107 MMOL/L Carbon Dioxide Level 23 21-32 MMOL/L Anion Gap 16 H 5-14 MMOL/L Blood Urea Nitrogen 16 7-18 MG/DL Creatinine 0.63 0.60-1.30 MG/DL Estimat Glomerular Filtration Rate > 60 BUN/Creatinine Ratio 25 Glucose Level 86 70-105 MG/DL Calcium Level 9.8 8.5-10.1 MG/DL Corrected Calcium 8.5-10.1 MG/DL Total Bilirubin 0.6 0.1-1.0 MG/DL Aspartate Amino Transf (AST/SGOT) 25 5-34 U/L Alanine Aminotransferase (ALT/SGPT) 38 0-55 U/L Alkaline Phosphatase 76 40-136 U/L Total Protein 7.9 6.4-8.2 GM/DL Albumin 4.7 H 3.2-4.5 GM/DL Lipase 42 8-78 U/L Serum Test, Qualitative NEGATIVE NEGATIVE My Orders Orders - SHRADDHA BUSTILLO Ua Culture If Indicated (09/27/19 23:07) Hcg,Qualitative Serum (09/27/19 23:07) Lidocaine 2% Viscous 15 Ml (Xylocaine Vi (09/27/19 23:15) Antacid Suspension (Mylanta Suspension (09/27/19 23:15) Famotidine Injection (Pepcid Injection) (09/27/19 23:12) Ed Iv/Invasive Line Start (09/27/19 23:12) Ondansetron Injection (Zofran Injectio (09/27/19 23:15) Cbc With Automated Diff (09/27/19 23:12) Comprehensive Metabolic Panel (09/27/19 23:12) Lipase (09/27/19 23:12) Urine Culture (09/27/19 23:08) Promethazine Injection (Phenergan Injec (09/27/19 23:45) Ed Iv/Invasive Line Start (09/27/19 23:43) Lactated Ringers (Lr 1000 Ml Iv Solution (09/27/19 23:43) Ketorolac Injection (Toradol Injection) (09/27/19 23:45) Medications Given in ED Current Medications Medications Dose Ordered Sig/Aileen Route Start Time Stop Time Status Last Admin Dose Admin Al Hydrox/Mg Hydrox/Simethicone 30 ml ONCE ONCE PO 09/27/19 23:15 09/27/19 23:16 DC 09/27/19 23:20 30 ML Ketorolac Tromethamine 30 mg ONCE ONCE IVP 2/29/20 23:45 09/27/19 23:46 DC 09/27/19 23:55 30 MG Lactated Ringer's 1,000 ml @ 0 mls/hr Q0M ONCE IV 09/27/19 23:43 09/27/19 23:45 DC 09/27/19 23:55 999 MLS/HR Lidocaine HCl 15 ml ONCE ONCE PO 09/27/19 23:15 09/27/19 23:16 DC 09/27/19 23:20 15 ML Ondansetron HCl 8 mg ONCE ONCE IVP 09/27/19 23:15 09/27/19 23:16 DC 09/27/19 23:20 8 MG Promethazine HCl 25 mg ONCE ONCE IVP 09/27/19 23:45 09/27/19 23:46 DC 09/27/19 23:55 25 MG Vital Signs/I&O 09/27/19 23:05 Temp 36.7 Pulse 93 Resp 16 B/P (MAP) 117/73 (88) Pulse Ox 98 O2 Delivery Room Air Progress Progress Note #1: Time: 23:18 Progress Note Aseptic vital signs. She appears to be in some distress with pain and nausea. We'll give her some Zofran IV, Pepcid IV, GI cocktail after we get her nausea under control. Suspect that this is most likely a gastritis/GERD/PUD. We'll going to suggest outpatient workup to include endoscopy and give her referral to the general surgeon on-call, Dr. Staton. If her labs are okay and does not reveal elevated bilirubin, transaminitis, pancreatitis or other significant disease then we will have her follow-up outpatient. We do not have ultrasound available at this time of night. We'll get her pain under control then we will keep her on some medications that should control her symptoms and a CT scan of the abdomen pelvis would be unnecessary at this time. Progress Note #2: Time: 23:45 Progress Note The patient did receive some modest relief from the GI cocktail and Zofran but she still a modest amount of discomfort. We'll give her some Toradol and Phenergan as well as a bag of fluids. She's not having any significant changes in her labs. Progress Note #3: Time: 00:16 Progress Note The patient's pain and nausea have resolved. She's had no vomiting since arrival. Labs were reviewed with her. Plan to put her on Prilosec and Carafate with follow-up with general surgery. Departure Impression Primary Impression: Gastritis Disposition: 01 HOME, SELF-CARE Condition: Improved Departure-Patient Inst. Decision time for Depature: 00:17 Referrals: LONI STATON,LOCAL PHYSICIAN (PCP) Primary Care Physician Patient Instructions: Gastritis (DC) Add. Discharge Instructions: Avoid alcohol. Avoid NSAIDs such as ibuprofen, Aleve, naproxen etc. Tylenol 1000 mg every 8 hours is okay as needed for pain. Rolaids, Tums, Maalox etc. may be helpful for upper abdominal pain. Ondansetron one tablet every 6 hours under the tongue as necessary for nausea or vomiting. Start taking Prilosec/omeprazole 20 mg twice a day for the next month. Start taking the Carafate 1 tablet 30 minutes prior to meals and at bedtime for a total of 4 times a day. Do this for the next 2 weeks. Sunday, call Dr. Staton, General Surgery or establish care with a primary care doctor for follow-up. Scripts Sucralfate (Carafate) 1 Gm Tablet 1 GM PO QIDACHS for 14 Days, #56 TAB 0 Refills Prov: SHRADDHA BUSTILLO 09/28/19 Ondansetron (Ondansetron Odt) 4 Mg Tab.rapdis 4 MG PO Q6H PRN for NAUSEA/VOMITING, #8 TAB 0 Refills Prov: SHRADDHA BUSTILLO 09/28/19 Omeprazole (Omeprazole) 20 Mg Capsule.dr 20 MG PO BID for 30 Days, #60 CAP 0 Refills Prov: SHRADDHA BUSTILLO 09/28/19 Work/School Note: Work Release Form Date Seen in the Emergency Department: Sep 28, 2019 Return to Work: Sep 29, 2019 Restrictions: No Restrictions SHRADDHA BUSTILLO Sep 27, 2019 23:19
[2019-09-27 23:22] LABS: BASOPHILS % (AUTO) 0 % (0-10); EOSINOPHILS % (AUTO) 1 % (0-10); HEMATOCRIT 43 % (35-52); HEMOGLOBIN 14.2 G/DL (11.5-16.0); LYMPHOCYTES # (AUTO) 4.3 X 10^3 (1.0-4.0); LYMPHOCYTES % (AUTO) 36 % (12-44); MEAN CORPUSCULAR HEMOGLOBIN 30 PG (25-34); MEAN CORPUSCULAR HGB CONC 33 G/DL (32-36); MEAN CORPUSCULAR VOLUME 89 FL (80-99); MEAN PLATELET VOLUME 10.4 FL (7.4-10.4); MONOCYTES % (AUTO) 7 % (0-12); NEUTROPHILS # (AUTO) 6.7 X 10^3 (1.8-7.8); NEUTROPHILS % (AUTO) 55 % (42-75); PLATELET COUNT 286 10^3/uL (130-400); RED CELL DISTRIBUTION WIDTH 13.2 % (10.0-14.5); WHITE BLOOD COUNT 12.1 10^3/uL (4.3-11.0)
[2019-09-27 23:23] LABS: BASOPHILS # (AUTO) 0.1 10^3/uL (0.0-0.1); EOSINOPHILS # (AUTO) 0.1 10^3/uL (0.0-0.3); MONOCYTES # (AUTO) 0.9 X 10^3 (0.0-1.0)
[2019-09-27 23:41] LABS: ALANINE AMINOTRANSFERASE 38 U/L (0-55); ALBUMIN 4.7 GM/DL (3.2-4.5); ALKALINE PHOSPHATASE 76 U/L (40-136); BILIRUBIN,TOTAL 0.6 MG/DL (0.1-1.0); BUN/CREATININE RATIO 25; CALCIUM 9.8 MG/DL (8.5-10.1); CARBON DIOXIDE 23 MMOL/L (21-32); CHLORIDE 102 MMOL/L (98-107); CREATININE SERUM 0.63 MG/DL (0.60-1.30); GFR ESTIMATED > 60; GLUCOSE 86 MG/DL (70-105); POTASSIUM 4.1 MMOL/L (3.6-5.0); SODIUM 141 MMOL/L (135-145); TOTAL PROTEIN 7.9 GM/DL (6.4-8.2)
[2019-09-27 23:42] LABS: LIPASE 42 U/L (8-78)
[2019-09-27] MEDS ORDERED: LACTATED RINGERS 1,000 ML IV ONE (23:43)
[2019-09-27] MEDS ORDERED: KETOROLAC 30 MG/ML VIAL IVP ONE (23:45)
[2019-09-27] MEDS ORDERED: PROMETHAZINE INJ 25 MG/ML (PHENERGAN) AMP IVP ONE (23:45)
[2019-09-28] MEDS ORDERED: OMEP20CA18 PO (00:22)
[2019-09-28] MEDS ORDERED: ONDA4TAB11 PO (00:22)
[2019-09-28] MEDS ORDERED: SUCR1TAB36 PO (00:22)
[2019-09-28 00:29] VITALS: BP 117/73
== END 2019-09-28 00:28 | disposition home or self-care (01) ==
LOC: EDUNIT# 22:59 → ER FS 23:02
DX: K29.70 Gastritis, unspecified, without bleeding (principal); F17.210 Nicotine dependence, cigarettes, uncomplicated; Z88.0 Allergy status to penicillin; Z88.1 Allergy status to other antibiotic agents
CPT/HCPCS: 36415; 80053; 81000; 83690; 84703; 85025; 87088; 96374; 96375

== ENCOUNTER 2019-10-08 20:07 | Emergency (ER) | payer MEDICAID ==
[~2019-10-08] VITALS: Ht 166 cm; Wt 65.7 kg
[~2019-10-08 20:07] MED LIST changes: +OMEP20CA18 PO; +ONDA4TAB11 PO; +SUCR1TAB36 PO
[2019-10-08 20:37] LABS: BILIRUBIN,URINE NEGATIVE (NEGATIVE); CLARITY,URINE CLEAR; COLOR,URINE YELLOW; GLUCOSE, URINE (UA) NEGATIVE (NEGATIVE); KETONES,URINE NEGATIVE (NEGATIVE); LEUKOCYTE ESTERASE ,URINE NEGATIVE (NEGATIVE); NITRITE,URINE NEGATIVE (NEGATIVE); PROTEIN,URINE NEGATIVE (NEGATIVE)
--- NOTE | 2019-10-08 21:12 | ED General ---
General Chief Complaint: General Problems/Pain Stated Complaint: LIGHTHEADED,NAUSEA,HEADACHE,WEAKNESS Nursing Triage Note: pt with multiple complaints starting 1 week ago, nasal congestion starting today, vomiting yesterday, george ongoing, pt states she got lightheaded this evening while shopping Nursing Sepsis Screen: No Definite Risk Source of Information: Patient History of Present Illness Date Seen by Provider: Oct 08, 2019 Time Seen by Provider: 20:19 Initial Comments 23-year-old female presenting with complaints of feeling lightheaded today. She has headache and pressure behind her eyes. She also was having some nasal congestion. She has had some swelling to her left hand and arm that states that she also has had surgery on that arm in the past. 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 The swelling seems to be there when she wakes up but then goes away during the morning. She just started her menstrual period today. 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 She had some mild nausea with an episode of vomiting yesterday. Overall she feels weak and wasn't sure why. She denies any pain with urination. She has had no diarrhea. 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 Allergies and Home Medications Allergies Coded Allergies: Penicillins (Verified Allergy, Unknown, 01/11/19) vancomycin (Verified Allergy, Unknown, 01/11/19) Home Medications Famotidine 20 Mg Tablet, 20 MG PO BID Prescribed by: ZOEY RODRIGUEZ on 12/03/18 1143 Naproxen 500 Mg Tablet, 500 MG PO BID Prescribed by: CHANELLE BYNUM on 01/11/19 0254 Omeprazole 20 Mg Capsule.dr, 20 MG PO BID Prescribed by: SHRADDHA BUSTILLO on 09/28/19 002 Ondansetron 4 Mg Tab.rapdis, 4 MG PO Q6H PRN for NAUSEA/VOMITING Prescribed by: SHRADDHA BUSTILLO on 09/28/19 002 Sucralfate 1 Gm Tablet, 1 GM PO QIDACHS Prescribed by: SHRADDHA BUSTILLO on 09/28/19 002 Tramadol HCl 50 Mg Tablet, 50 MG PO Q4H PRN for PAIN-MODERATE Prescribed by: CHANELLE BYNUM on 01/11/19 0254 Patient Home Medication List Home Medication List Reviewed: Yes Review of Systems Review of Systems Constitutional: see HPI; No chills; dizziness (today); No fever; malaise, weakness EENTM: see HPI Respiratory: cough, short of breath Cardiovascular: No chest pain Gastrointestinal: No diarrhea; nausea, vomiting (times one yesterday) Genitourinary: see HPI; No dysuria, No pain Musculoskeletal: see HPI Skin: No rash Psychiatric/Neurological: Anxiety, Headache Hematologic/Lymphatic: Denies Blood Clots, Denies Easy Bleeding, Denies Easy Bruising Past Xbjmtzx-Budidm-Aruula Hx Past Med/Social Hx: Reviewed Nursing Past Med/Soc Hx Patient Social History Alcohol Use: Denies Use Number of Drinks Today: AA Alcohol Beverage of Choice: Beer Recreational Drug Use: No Smoking Status: Current Everyday Smoker Type Used: Cigarettes 2nd Hand Smoke Exposure: No Recent Foreign Travel: No Contact w/Someone Who Travel: No Recent Infectious Disease Expo: No Recent Hopitalizations: No Physical Abuse: No Sexual Abuse: No Mistreated: No Fear: No Past Medical History Surgeries: No Orthopedic Respiratory: No Cardiac: No Neurological: No Reproductive Disorders: No Genitourinary: No Gastrointestinal: Yes Ulcer, Irritable Bowel Musculoskeletal: No Fractures Endocrine: No HEENT: No Cancer: No Psychosocial: No Integumentary: No Physical Exam Vital Signs Vital Signs - First Documented 10/08/19 20:28 Temp 36.8 Pulse 68 Resp 16 B/P (MAP) 117/55 (75) Pulse Ox 98 O2 Delivery Room Air Capillary Refill : Less Than 3 Seconds Height, Weight, BMI Height: 5'4.50" Weight: 145lbs. oz. 65.046381ky; 23.00 BMI Method:Stated General Appearance: No Apparent Distress, WD/WN HEENT: PERRL/EOMI, TMs Normal, Normal ENT Inspection, Pharynx Normal Neck: Full Range of Motion, Normal Inspection, Non Tender, Supple; No Carotid Bruit Respiratory: Chest Non Tender, Lungs Clear, Normal Breath Sounds, No Accessory Muscle Use, No Respiratory Distress Cardiovascular: Regular Rate, Rhythm, Normal Peripheral Pulses Gastrointestinal: Normal Bowel Sounds, No Pulsatile Mass, Non Tender, Soft Extremity: Normal Capillary Refill, Normal Inspection, Normal Range of Motion, Non Tender, No Pedal Edema Neurologic/Psychiatric: Alert, Oriented x3, No Motor/Sensory Deficits, Normal Mood/Affect, ui developer II-XII Norm as Tested Skin: Normal Color, Warm/Dry Progress/Results/Core Measures Suspected Sepsis Recent Fever Within 48 Hours: No Infection Criteria Present: None New/Unexplained Altered Menta: No Sepsis Screen: No Definite Risk SIRS Temperature: Pulse: 68 Respiratory Rate: 16 Blood Pressure 117 /55 Mean: 75 Results/Orders Lab Results Laboratory Tests Test 10/08/19 20:15 Range/Units Urine Color YELLOW Urine Clarity CLEAR Urine pH 7.0 5-9 Urine Specific [place] 1.020 1.016-1.022 Urine Protein NEGATIVE NEGATIVE Urine Glucose (UA) NEGATIVE NEGATIVE Urine Ketones NEGATIVE NEGATIVE Urine Nitrite NEGATIVE NEGATIVE Urine Bilirubin NEGATIVE NEGATIVE Urine Urobilinogen 0.2 < = 1.0 MG/DL Urine Leukocyte Esterase NEGATIVE NEGATIVE Urine RBC (Auto) 1+ H NEGATIVE Urine RBC 2-5 H /HPF Urine WBC NONE /HPF Urine Squamous Epithelial Cells 2-5 /HPF Urine Crystals NONE /LPF Urine Bacteria NONE /HPF Urine Casts NONE /LPF Urine Mucus NEGATIVE /LPF Urine Culture Indicated NO My Orders Orders - STEFANY CAMARENA MD Urine Bedside (10/08/19 20:09) Ua Culture If Indicated (10/08/19 20:09) Vital Signs/I&O 10/08/19 10/08/19 20:28 21:14 Temp 36.8 36.8 Pulse 68 68 Resp 16 16 B/P (MAP) 117/55 (75) 117/55 (75) Pulse Ox 98 98 O2 Delivery Room Air Capillary Refill : Less Than 3 Seconds Blood Pressure Mean: 75 Progress Note : Progress Note Counseled patient that her urinalysis had only showing a trace amount of blood which was consistent with her starting her menstrual period today. There was no sign of infection. Her exam was benign as well. She had complaints of pressure behind her eyes and this could be related to a sinus infection or pressure. 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 Advised that I could do blood work and compare it to which she had from 12 days ago when she was in the emergency department to see if there was anything different. Patient stated that she did not want to do that tonight. She will try symptomatic treatment for her sinuses and see if that helps. She will continue to push fluids and rest at home. If she has further concerns she will try and establish care with the [facility] for her primary physician. Counseled that she could always follow up there or if she has further concerns she could return and have blood work and further testing done through the emergency department. Departure Impression Primary Impression: Sinus headache Additional Impressions: Lightheadedness Swelling of left hand Disposition: HOME, SELF-CARE Condition: Stable Departure-Patient Inst. Decision time for Depature: 21:09 Referrals: NO,LOCAL PHYSICIAN (PCP) Primary Care Physician [facility] [place] Patient Instructions: Sinus Headache (DC), Dizziness, Nonvertigo, (DC) Add. Discharge Instructions: Try using Mucinex and drinking plenty of water to help with sinus pressure behind your eyes and sinus headache. Use Flonase or over the counter steroid nasal spray to help with sinus pressure and pressure behind your eyes. Consider using sudafed to help with sinus pressure and congestion. Check back with clinic and get established with a primary care provider for further concerns and follow up. Return to the ER or clinic for worsening symptoms All discharge instructions reviewed with patient and/or family. Voiced understanding. STEFANY CAMARENA MD Oct 08, 2019 21:12
[2019-10-08 21:14] VITALS: BP 117/55
--- OUTSIDE RECORDS SUMMARY | 2019-10-10 22:52 | XMS REPORT | Continuity of Care Document ---
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 related conditions, third tr imester 02/18/2018 Voth,, Galo Final R10. 2 Pelvic and perineal pain 02/18/2018 Voth,, Galo Final Z3A. 38 38 weeks gestation of 02/18/2018 Voth,, Galo Final Z 79.899 Other usp (current) drug therapy 02/18/2018 Voth,, Galo Final Z 87.891 Personal history of nicotine dependence 02/18/2018 Voth,, Galo Final Z88. 0 Allergy status to penicillin 02/18/2018 Voth,, Galo Final Z88. 1 Allergy status to other antibiotic agents status 02/22/2018 Voth,, Galo Final F 17.210 Nicotine dependence, cigarettes, uncomplicated 02/22/2018 Voth,, Galo Admitting Z34.83 Encounter for supervision of other michael summers , third trimester 02/22/2018 Voth,, Galo Final Z37. 0 Single live 02/22/2018 Voth,, Galo Final Z3A. 39 39 weeks gestation of 02/22/2018 Voth,, Galo Final O 99.334 Smoking (tobacco) complicating childbirth 08/23/2018 Oswald Hayes MD S42.472D DISPLACED TRANSCONDY FX L HUMERUS, SUBS 08/23/2018 Oswald Hayes MD T84.84XA PAIN DUE TO INTERNAL ORTHOPEDIC PROSTH D 08/23/2018 Oswald Hayes MD S42.472D DISPLACED TRANSCONDY FX L HUMERUS, SUBS 08/23/2018 Oswald Hayes MD T84.84XA PAIN DUE TO INTERNAL ORTHOPEDIC PROSTH D 12/03/2018 ZOEY HEATH MD Ot K58.9 IRRITABLE BOWEL SYNDROME WITHOUT DIARRHE 12/03/2018 ZOEY HEATH MD Ot R10.13 EPIGASTRIC PAIN 12/03/2018 ZOEY HEATH MD Ot Z77.22 CNTCT W AND EXPSR TO ENVIRON TOBACCO SMO 12/03/2018 ZOEY HEATH MD, Ot Z87.19 PERSONAL HISTORY OF OTHER DISEASES OF 12/03/2018 ZOEY HEATH MD Ot Z88.0 ALLERGY STATUS TO PENICILLIN 12/03/2018 ZOEY HEATH MD Ot Z88.1 ALLERGY STATUS TO OTHER ANTIBIOTIC AGENT 12/06/2018 ZOEY HEATH MD Ot K58.9 IRRITABLE BOWEL SYNDROME WITHOUT DIARRHE 12/06/2018 ZOEY HEATH MD Ot R10.13 EPIGASTRIC PAIN 12/06/2018 ZOEY HEATH MD Ot Z77.22 CNTCT W AND EXPSR TO ENVIRON TOBACCO SMO 12/06/2018 ZOEY HEATH MD Ot Z87.19 PERSONAL HISTORY OF OTHER DISEASES OF 12/06/2018 OZEY HEATH MD Ot Z88.0 ALLERGY STATUS TO PENICILLIN 12/06/2018 ZOEY HEATH MD Ot Z88.1 ALLERGY STATUS TO OTHER ANTIBIOTIC AGENT 01/11/2019 CHANELLE BYNUM DO Ot F17.210 NICOTINE DEPENDENCE, CIGARETTES, UNCOMPL 01/11/2019 CHANELLE BYNUM DO Ot K58.9 IRRITABLE BOWEL SYNDROME WITHOUT DIARRHE 01/11/2019 CHANELLE BYNUM DO Ot M79.602 PAIN IN LEFT ARM 01/11/2019 CHANELLE BYNUM DO Ot S40.022 A CONTUSION OF LEFT UPPER ARM, INITIAL ENC 01/11/2019 CHANELLE BYNUM DO Ot S53.402 A UNSPECIFIED SPRAIN OF LEFT ELBOW, INITIA 01/11/2019 CHANELLE BYNUM DO Ot W18.30X A FALL ON SAME LEVEL, UNSPECIFIED, INITIAL 01/11/2019 CHANELLE BYNUM DO Ot Y92.[address] OF OCCURRENCE O 01/11/2019 CHANELLE BYNUM DO Ot Y93.02 ACTIVITY, RUNNING 01/11/2019 CHANELLE BYNUM DO Ot Z87.19 PERSONAL HISTORY OF OTHER DISEASES OF TH 01/11/2019 CHANELLE BYNUM DO Ot Z88.0 ALLERGY STATUS TO PENICILLIN 01/11/2019 CHANELLE BYNUM DO Ot Z88.1 ALLERGY STATUS TO OTHER ANTIBIOTIC AGENT 01/11/2019 CHANELLE BYNUM DO Ot Z98.890 OTHER SPECIFIED POSTPROCEDURAL STATES 01/17/2019 MISA EPSTEIN CHANELLE Rojo Ot F17.210 NICOTINE DEPENDENCE, CIGARETTES, UNCOMPL 01/17/2019 MISA EPSTEIN CHANELLE Alia Ot K58.9 IRRITABLE BOWEL SYNDROME WITHOUT DIARRHE 01/17/2019 MISA EPSTEIN CHANELLE Alia Ot M79.602 PAIN IN LEFT ARM 01/17/2019 MISA CHANELLE Alia Ot S40.022 A CONTUSION OF LEFT UPPER ARM, INITIAL ENC 01/17/2019 MISA EPSTEIN CHANELLE Alia Ot S53.402 A UNSPECIFIED SPRAIN OF LEFT ELBOW, INITIA 01/17/2019 MISA EPSTEIN CHANELLE Alia Ot W18.30X A FALL ON SAME LEVEL, UNSPECIFIED, INITIAL 01/17/2019 MISA EPSTEIN CHANELLE Rojo Ot Y92.[address] OF OCCURRENCE O 01/17/2019 CHANELLE BYNUM DO Ot Y93.02 ACTIVITY, RUNNING 01/17/2019 CHANELLE BYNUM DO Ot Z87.19 PERSONAL HISTORY OF OTHER DISEASES OF TH 01/17/2019 CHANELLE BYNUM DO Ot Z88.0 ALLERGY STATUS TO PENICILLIN 01/17/2019 MISA CHANELLE Rojo Ot Z88.1 ALLERGY STATUS TO OTHER ANTIBIOTIC AGENT 01/17/2019 MISA CHANELLE Rojo Ot Z98.890 OTHER SPECIFIED POSTPROCEDURAL STATES 01/23/2019 Mirna Camargo Final F17.210 Nicotine dependence, cigarettes, uncomplicated 01/23/2019 Mirna Camargo Final F31.9 Bipolar disorder, unspecified 01/23/2019 Mirna Camargo Reason M25.522 Pain in left elbow 01/23/2019 Mirna Camargo Final S50.02XA Contusion of left elbow, initial encounter 01/23/2019 Mirna Camargo Final W19.XXXA Unspecified fall, initial encounter 01/23/2019 Mirna Camargo Final Y93.02 Activity, running 01/23/2019 Mirna Camargo Final Z80.3 Family history of malignant neoplasm of breast 01/23/2019 Mirna Camargo Final Z87.81 Personal history of (healed) traumatic fracture 01/23/2019 Mirna Camargo Final Z88.0 Allergy status to penicillin 01/23/2019 Mirna Camargo Final Z88.1 Allergy status to other antibiotic agents status 09/28/2019 KENY ROBERTS, SHRADDHA J Ot F17.210 NICOTINE DEPENDENCE, CIGARETTES, UNCOMPL 09/28/2019 KENY ROBERTS, SHRADDHA J Ot K29. 70 GASTRITIS, UNSPECIFIED, WITHOUT BLEEDING 09/28/2019 KENY ROBERTS, SHRADDHA J Ot R10. 30 LOWER ABDOMINAL PAIN, UNSPECIFIED 09/28/2019 KENY ROBERTS, SHRADDHA J Ot Z88. 0 ALLERGY STATUS TO PENICILLIN 09/28/2019 KENY ROBERTS, SHRADDHA J Ot Z88. 1 ALLERGY STATUS TO OTHER ANTIBIOTIC AGENT Procedures Code Description Performed By Per formed On 86.59 CLOS URE SKIN SUBCUTANEOUS NEC Shanice ROBERTS, W 04/27/2014 [id number] Cheyanne Bruno 04/27/2016 [id number] Cheyanne Bruno 04/27/[id number] montejo of Amniotic Fluid, Therapeutic from Products of Conception, Via Na 01/02/2017 [id number] [place] of [employer], External Approach 01/28 Results Test Result Range UR TEST - 05/27/13 21:30 UR TEST NEGATIVE NEGATIVE URINALYSIS WITH MICROSCOPIC - 05/27/13 2 1:30 UA LEUKOCYTE ESTERASE DIPSTICK NEGATIVE NEGATIVE UA NITRITE DIPSTICK NEGATIVE NEGATIVE UA PROTEIN DIPSTICK NEGATIVE NEGATIVE UA GLUCOSE DIPSTICK NEGATIVE NEGATIVE UA KETONE DIPSTICK NEGATIVE NEGATIVE UA UROBILINOGEN DIPSTICK NORMAL MICHAEL L UA BILIRUBIN DIPSTICK NEGATIVE NEGATIVE UA BLOOD DIPSTICK NEGATIVE NEGATIVE UA RBC 0 rbc/hpf 0 - 3 UA VOLUME FOR EXAM 12.0 mL (12mL STD) UA WBC 0 wbc/hpf 0 - 5 UA SPECIFIC GRAVITY 1.000 1.015-1.02 5 UR PH 7.0 5.0-7.0 UR TEST - 07/24/13 23:24 UR TEST NEGATIVE NEGATIVE URINALYSIS, ROUTINE - 01/30/14 16:03 UA LEUKOCYTE ESTERASE DIPSTICK TRACE NEGATIVE UA NITRITE DIPSTICK NEGATIVE NEGATIVE UA PROTEIN DIPSTICK 1+ NEGATIVE UA GLUCOSE DIPSTICK NEGATIVE NEGATIVE UA KETONE DIPSTICK TRACE NEGATIVE UA UROBILINOGEN DIPSTICK NORMAL MICHAEL L UA BILIRUBIN DIPSTICK 1+ NEGATIVE UA BLOOD DIPSTICK NEGATIVE NEGATIVE UA SPECIFIC GRAVITY 1.025 1.015-1.02 5 UR PH 5.0 5.0-7.0 CBC W/DIFF - 01/30/14 16:03 EOSINOPHIL # 0.1 k/cumm 0.1-0.5 EOSINOPHIL % 1 % 2-4 GRANULOCYTE # 6.0 k/cumm 2.0-9.0 GRANULOCYTE % 63 % 50-75 LYMPHOCYTE # 2.5 k/cumm 1.0-4.0 LYMPHOCYTE % 26 % 20-30 MEAN CELL HGB 29.7 pg 27.0-33.0 MEAN CELL HGB CONCENTRATION 32.9 g/dL 32 .0-37.0 MEAN CELL VOLUME 90.5 fl 79.0-95.0 MONOCYTE # 0.9 k/cumm 0.1-1.0 MONOCYTE % 10 % 4-6 RED BLOOD CELL 4.64 m/cumm 4.00-6.00 RED CELL DISTRIBUTION WIDTH 13.1 % 11 .0-15.6 WHITE BLOOD CELL 9.5 k/cumm 5.0-10.0 HEMOGLOBIN 13.8 gm/dL 12.0-16.0 HEMATOCRIT 42.0 % 36.0-46.0 PLATELET COUNT 298 k/cumm 150-450 UR TEST - 01/30/14 16:03 UR TEST NEGATIVE NEGATIVE UA MICROSCOPIC - 01/30/14 16:03 UA BACTERIA 2+ NEGATIVE UA EPITHELIAL CELLS 2+ epi/hpf 0 - 1+ UA MUCUS 4+ NEG TO 1+ UA RBC 0-3 rbc/hpf 0 - 3 UA VOLUME FOR EXAM 12.0 mL (12mL STD) UA WBC 2-5 wbc/hpf 0 - 5 METABOLIC PANEL, COMPREHN - 01/30/14 16: 03 POTASSIUM 3.9 mmol/L 3.5-5.3 ANION GAP 7 mmol/L 5-15 GLUCOSE 85 mg/dL 70-99 CALCIUM 9.3 mg/dL 8.5-10.1 BLOOD UREA NITROGEN 10 mg/dL 7-20 CREATININE 0.7 mg/dL 0.5-1.0 SODIUM 143 mmol/L 135-148 CHLORIDE 105 mmol/L 98-110 AST/SGOT 16 Units/L 10-37 ALT/SGPT 35 Units/L < 66 CARBON DIOXIDE 31 mmol/L 21-32 TOTAL PROTEIN 7.8 gm/dL 5.7-8.0 ALBUMIN 4.2 gm/dL 3.4-5.0 BILI TOTAL 1.1 mg/dL 0.0-1.0 ALKALINE PHOSPHATASE TOTAL 112 IU/L 45- 117 GONORRHOEA DNA BY PCR - CHLAMYDIA DNA BY PCR - 01/30/14 16:03 Microbiology URINALYSIS, ROUTINE - 02/19/14 11:45 UA LEUKOCYTE ESTERASE DIPSTICK TRACE NEGATIVE UA NITRITE DIPSTICK NEGATIVE NEGATIVE UA PROTEIN DIPSTICK TRACE NEGATIVE UA GLUCOSE DIPSTICK NEGATIVE NEGATIVE UA KETONE DIPSTICK NEGATIVE NEGATIVE UA UROBILINOGEN DIPSTICK NORMAL MICHAEL L UA BILIRUBIN DIPSTICK 1+ NEGATIVE UA BLOOD DIPSTICK TRACE NEGATIVE UA SPECIFIC GRAVITY 1.025 1.015-1.02 5 UR PH 5.0 5.0-7.0 UR TEST - 02/19/14 11:45 UR TEST NEGATIVE NEGATIVE UA MICROSCOPIC - 02/19/14 11:45 UA BACTERIA 2+ NEGATIVE UA EPITHELIAL CELLS 1+ epi/hpf 0 - 1+ UA MUCUS 3+ NEG TO 1+ UA RBC 0-3 rbc/hpf 0 - 3 UA VOLUME FOR EXAM 12.0 mL (12mL STD) UA WBC 0-1 wbc/hpf 0 - 5 WET MOUNT - 02/19/14 12:24 Microbiology GRAM STAIN - CHLAMYDIA DNA BY PCR - 01/28 11/10 12:24 Microbiology CBC W/DIFF - 07/20/15 18:54 GRANULOCYTE # 6.9 k/cumm 2.0-9.0 GRANULOCYTE % 65 % 50-75 LYMPHOCYTE # 2.7 k/cumm 1.0-4.0 LYMPHOCYTE % 26 % 20-30 MEAN CELL HGB 31.0 pg 27.0-33.0 MEAN CELL HGB CONCENTRATION 33.3 g/dL 32 .0-37.0 MEAN CELL VOLUME 93.0 fl 80.0-100.0 MONOCYTE # 0.9 k/cumm 0.1-1.0 MONOCYTE % 8 % 4-6 RED BLOOD CELL 4.58 m/cumm 4.00-6.00 RED CELL DISTRIBUTION WIDTH 13.3 % 11 .0-15.6 WHITE BLOOD CELL 10.5 k/cumm 5.0-10.0 HEMOGLOBIN 14.2 gm/dL 12.0-16.0 HEMATOCRIT 42.6 % 37.0-47.0 PLATELET COUNT 270 k/cumm 150-450 METABOLIC PANEL, COMPREHN - 07/20/15 18: 54 POTASSIUM 3.5 mmol/L 3.5-5.3 EST GFR (MDRD) > 60 mL/min > 59 ANION GAP 10 mmol/L 5-15 EST CrCl (CG) > 60 mL/min > 59 GLUCOSE 96 mg/dL 70-99 CALCIUM 9.4 mg/dL 8.5-10.1 BLOOD UREA NITROGEN 7 mg/dL 7-20 CREATININE 0.5 mg/dL 0.5-1.0 SODIUM 141 mmol/L 135-148 CHLORIDE 103 mmol/L 98-110 AST/SGOT 18 Units/L 10-37 ALT/SGPT 22 Units/L < 66 CARBON DIOXIDE 28 mmol/L 21-32 TOTAL PROTEIN 7.5 gm/dL 6.4-8.2 ALBUMIN 4.0 gm/dL 3.4-5.0 BILI TOTAL 1.6 mg/dL 0.0-1.0 ALKALINE PHOSPHATASE TOTAL 82 IU/L 45- 117 LIPASE - 07/20/15 18:54 LIPASE 104 Units/L 73-393 D-DIMER QUANT - 07/20/15 18:54 D-DIMER QUANT < 0.19 mg/L 0-0.50 URINALYSIS, ROUTINE - 07/20/15 19:23 UA LEUKOCYTE ESTERASE DIPSTICK TRACE NEGATIVE UA NITRITE DIPSTICK NEGATIVE NEGATIVE UA PROTEIN DIPSTICK TRACE NEGATIVE UA GLUCOSE DIPSTICK NEGATIVE NEGATIVE UA KETONE DIPSTICK NEGATIVE NEGATIVE UA UROBILINOGEN DIPSTICK 2+ MICHAEL L UA BILIRUBIN DIPSTICK NEGATIVE NEGATIVE UA BLOOD DIPSTICK 1+ NEGATIVE UA SPECIFIC GRAVITY 1.010 1.015-1.02 5 UR PH 8.0 5.0-7.0 UA MICROSCOPIC - 07/20/15 19:23 UA AMORPHOUS SEDIMENT 1+ UA BACTERIA 2+ NEGATIVE UA EPITHELIAL CELLS 2+ epi/hpf 0 - 1+ UA MUCUS 2+ NEG TO 1+ UA RBC 0-3 rbc/hpf 0 - 3 UA VOLUME FOR EXAM 12.0 mL (12mL STD) UA WBC 2-5 wbc/hpf 0 - 5 UR TEST - 07/20/15 19:23 UR TEST NEGATIVE NEGATIVE CBC With Platelet and Differential - 06/15 13:24 Absolute Basophils 0.02 10*3/uL 0.00-0.2 0 Absolute Eosinophils 0.06 10*3/uL 0.00-0 .50 Absolute Lymphocytes 1.35 10*3/uL 0.80-3 .30 Absolute Monocytes 0.52 10*3/uL 0.30-1.0 0 Absolute Neutrophils 7.36 10*3/uL 1.90-7 .00 Basophils 0 % 0-2 Eosinophils 1 % 0-4 HCT 40.5 % 37.0-47.0 HGB 13.4 g/dL 12.0-16.0 Immature Granulocytes 0.2 % 0.0-1.0 Lymphocytes 15 % 20-46 MCH 30.3 pg 27.0-32.0 MCHC 33.1 g/dL 32.0-36.0 MCV 91.6 fL 82.0-99.0 Monocytes 6 % 4-11 MPV 11.2 fL 9.4-12.4 Neutrophils 79 % 51-75 Nucleated RBC Automated 0.0 /100 WBC Platelet Count 273 K/uL 150-400 RBC 4.42 10*6/uL 4.00-5.20 RDW 13.2 % 11.5-14.5 WBC 9.3 K/uL 4.8-10.8 Urinalysis with reflex microscopic - 06/15 13:24 Appearance Cloudy NA Bilirubin Negative NA Negative Blood Pos 3+ NA Negative Color Yellow NA Glucose, Urine Negative Negative Ketones Negative Negative Leukocyte Esterase Negative NA Negative Nitrites Negative NA Negative pH 7.0 NA 5.0-8.0 Protein Negative NA Negative Specific [place] 1.020 NA 1.003-1.030 UA Collection type Clean Catch NA Urobilinogen Negative mg/dL <1.0 Comprehensive Metabolic Panel (CMP) - 13:24 Albumin 4.3 g/dL 3.5-4.8 Alkaline Phosphatase 72 U/L 26-104 ALT (SGPT) 21 U/L 14-54 Anion Gap 9 mEq/L 3-20 AST (SGOT) 17 U/L 15-41 Bilirubin Total 1.0 mg/dL 0.2-1.2 BUN 13 mg/dL 4-20 Calcium 9.9 mg/dL 8.6-10.0 Chloride 105 mEq/L 99-109 CO2 25 mEq/L 22-32 Creatinine 0.67 mg/dL 0.44-1.03 Globulin 2.8 g/dL 1.9-4.3 Glucose 96 mg/dL 70-100 Potassium 3.8 mEq/L 3.6-5.1 Protein 7.1 g/dL 6.1-7.9 Sodium 139 mEq/L 136-144 Lipase - 04/09/17 13:24 Lipase 27 U/L 8-48 eGFR - 04/09/17 13:24 eGFR >60 mL/min >60 Urine Microscopic - 04/09/17 13:24 Bacteria Moderate NA Crystals Amorphous NA Epithelial Cells 2 /HPF RBC, Urine 10 /HPF 0-2 Urine Mucus Present NA WBC, Urine 2 /HPF 0-4 Screen, Urine NPT - 04/09/17 1 3:32 Screen, Urine NPT Negative NA Chem 8 NPT - 04/09/17 13:33 Anion Gap 11 mEq/L 3-20 BUN Venous 16 mg/dl 4-20 Calcium Ionized Venous 1.22 mmol/L 1.19- 1.41 Creatinine Venous 0.7 mg/dL 0.4-1.0 Glucose Venous 94 mg/dL 70-100 Potassium, WB 3.8 mEq/L 3.6-5.1 Sodium Venous 140 mEq/L 136-144 Total CO2 Venous 25 mEq/L 25-29 Venous CL 104 mEq/L 99-109 HCT Venous 42.0 % 37.0-47.0 HGB Venous NPT 14.3 g/dL 12.0-16.0 Urinalysis with reflex microscopic - 03/15 18:00 Appearance Clear NA Bilirubin Negative NA Negative Blood Negative NA Negative Color Yellow NA Glucose, Urine Negative Negative Ketones Negative Negative Leukocyte Esterase Negative NA Negative Nitrites Negative NA Negative pH 7.0 NA 5.0-8.0 Protein Negative NA Negative Specific [place] 1.020 NA 1.003-1.030 UA Collection type Voided NA Urobilinogen Negative mg/dL <1.0 Screen, Urine NPT - 07/06/17 1 8:01 Screen, Urine NPT Positive NA URINALYSIS, ROUTINE - 07/24/17 13:03 UA LEUKOCYTE ESTERASE DIPSTICK NEGATIVE NEGATIVE UA NITRITE DIPSTICK NEGATIVE NEGATIVE UA PROTEIN DIPSTICK NEGATIVE NEGATIVE UA GLUCOSE DIPSTICK NEGATIVE NEGATIVE UA KETONE DIPSTICK 3+ NEGATIVE UA UROBILINOGEN DIPSTICK NORMAL MICHAEL L UA BILIRUBIN DIPSTICK NEGATIVE NEGATIVE UA BLOOD DIPSTICK NEGATIVE NEGATIVE UA SPECIFIC GRAVITY 1.025 1.015-1.02 5 UR PH 6.0 5.0-7.0 INFLUENZA A OIA - INFLUENZA B OIA - 06/30 01/13 13:11 Microbiology CBC With Platelet and Differential - 08/16 14:41 Absolute Basophils 0.02 10*3/uL 0.00-0.2 0 Absolute Eosinophils 0.05 10*3/uL 0.00-0 .50 Absolute Lymphocytes 2.32 10*3/uL 0.80-3 .30 Absolute Monocytes 0.60 10*3/uL 0.30-1.0 0 Absolute Neutrophils 6.26 10*3/uL 1.90-7 .00 Basophils 0 % 0-2 Eosinophils 1 % 0-4 HCT 35.4 % 37.0-47.0 HGB 11.8 g/dL 12.0-16.0 Immature Granulocytes 0.5 % 0.0-1.0 Lymphocytes 25 % 20-46 MCH 30.5 pg 27.0-32.0 MCHC 33.3 g/dL 32.0-36.0 MCV 91.5 fL 82.0-99.0 Monocytes 7 % 4-11 MPV 10.7 fL 9.4-12.4 Neutrophils 67 % 51-75 Nucleated RBC Automated 0.0 /100 WBC Platelet Count 239 K/uL 150-400 RBC 3.87 10*6/uL 4.00-5.20 RDW 14.0 % 11.5-14.5 WBC 9.3 K/uL 4.8-10.8 Comprehensive Metabolic Panel (CMP) - 14:41 Albumin 3.2 g/dL 3.5-4.8 Alkaline Phosphatase 43 U/L 26-104 ALT (SGPT) 11 U/L 14-54 Anion Gap 8 mEq/L 3-20 AST (SGOT) 17 U/L 15-41 Bilirubin Total 0.7 mg/dL 0.2-1.2 BUN 4 mg/dL 4-20 Calcium 9.0 mg/dL 8.6-10.0 Chloride 105 mEq/L 99-109 CO2 22 mEq/L 22-32 Creatinine 0.44 mg/dL 0.44-1.03 Globulin 2.9 g/dL 1.9-4.3 Glucose 93 mg/dL 70-100 Potassium 3.4 mEq/L 3.6-5.1 Protein 6.1 g/dL 6.1-7.9 Sodium 135 mEq/L 136-144 Lipase - 09/27/17 14:41 Lipase 23 U/L 8-48 eGFR - 09/27/17 14:41 eGFR >60 mL/min >60 Urinalysis with reflex microscopic - 08/16 14:42 Appearance Clear NA Bilirubin Negative NA Negative Blood Negative NA Negative Color Yellow NA Glucose, Urine Negative Negative Ketones Negative Negative Leukocyte Esterase Negative NA Negative Nitrites Negative NA Negative pH 5.0 NA 5.0-8.0 Protein Negative NA Negative Specific [place] 1.010 NA 1.003-1.030 UA Collection type Clean Catch NA Urobilinogen Negative mg/dL <1.0 Urinalysis with reflex microscopic - 23:40 Appearance Sl Cloudy NA Bilirubin Negative NA Negative Blood Negative NA Negative Color Yellow NA Glucose, Urine Negative Negative Ketones Negative Negative Leukocyte Esterase Negative NA Negative Nitrites Negative NA Negative pH 7.0 NA 5.0-8.0 Protein Negative NA Negative Specific [place] 1.015 NA 1.003-1.030 UA Collection type Clean Catch NA Urobilinogen Negative mg/dL <1.0 Urinalysis with reflex microscopic - 22:29 Appearance Clear NA Bilirubin Negative NA Negative Blood Negative NA Negative Color Colorless NA Glucose, Urine Negative Negative Ketones Negative Negative Leukocyte Esterase Trace NA Negative Nitrites Negative NA Negative pH 8.0 NA 5.0-8.0 Protein Negative NA Negative Specific [place] <1.003 NA 1.003-1.030 UA Collection type Clean Catch NA Urobilinogen Negative mg/dL <1.0 Urine Microscopic - 12/19/17 22:29 Bacteria Rare NA Epithelial Cells 0 /HPF RBC, Urine 0 /HPF 0-2 WBC, Urine 0 /HPF 0-4 CBC With Platelet and Differential - 03:45 Absolute Basophils 0.03 10*3/uL 0.00-0.2 0 Absolute Eosinophils 0.12 10*3/uL 0.00-0 .50 Absolute Lymphocytes 2.94 10*3/uL 0.80-3 .30 Absolute Monocytes 1.17 10*3/uL 0.30-1.0 0 Absolute Neutrophils 7.18 10*3/uL 1.90-7 .00 Basophils 0 % 0-2 Eosinophils 1 % 0-4 HCT 33.5 % 37.0-47.0 HGB 10.7 g/dL 12.0-16.0 Immature Granulocytes 0.3 % 0.0-1.0 Lymphocytes 26 % 20-46 MCH 27.1 pg 27.0-32.0 MCHC 31.9 g/dL 32.0-36.0 MCV 84.8 fL 82.0-99.0 Monocytes 10 % 4-11 MPV 12.0 fL 9.4-12.4 Neutrophils 63 % 51-75 Nucleated RBC Automated 0.0 /100 WBC Platelet Count 226 K/uL 150-400 RBC 3.95 10*6/uL 4.00-5.20 RDW 14.5 % 11.5-14.5 WBC 11.5 K/uL 4.8-10.8 ABO and RH - 02/17/18 03:45 ABO and Rh NA Antibody Screen - 02/17/18 03:45 Antibody Screen NA URINALYSIS, ROUTINE - 06/03/18 21:43 UA LEUKOCYTE ESTERASE DIPSTICK TRACE NEGATIVE UA NITRITE DIPSTICK NEGATIVE NEGATIVE UA PROTEIN DIPSTICK NEGATIVE NEGATIVE UA GLUCOSE DIPSTICK NEGATIVE NEGATIVE UA KETONE DIPSTICK NEGATIVE NEGATIVE UA UROBILINOGEN DIPSTICK NORMAL MICHAEL L UA BILIRUBIN DIPSTICK NEGATIVE NEGATIVE UA BLOOD DIPSTICK 2+ NEGATIVE UA SPECIFIC GRAVITY 1.020 1.015-1.02 5 UR PH 8.5 5.0-7.0 UA MICROSCOPIC - 06/03/18 21:43 UA BACTERIA 1+ NEGATIVE UA EPITHELIAL CELLS 3+ epi/hpf 0 - 1+ UA HYALINE CAST 1-2 cast/lpf 0 - 1 UA RBC 0-3 rbc/hpf 0 - 3 UA WBC 2-5 wbc/hpf 0 - 5 UR TEST - 06/03/18 21:44 UR TEST NEGATIVE NEGATIVE UR TEST - 07/12/18 12:01 UR TEST NEGATIVE NEGATIVE MRSA SURVEILLANCE SCREEN - 08/19/18 13:5 2 Microbiology TEST, SERUM - 08/23/18 07:08 TEST, SERUM NEGATIVE NEGATIVE INFLUENZA A OIA - INFLUENZA B OIA - 09/17 18:48 Microbiology WET MOUNT - 09/28/18 18:48 Microbiology GRAM STAIN - CHLAMYDIA DNA BY PCR - 09/17 18:48 Microbiology CHLAMYDIA DNA BY PCR - 09/28/18 18:48 Microbiology URINE CULTURE - 09/28/18 18:57 Microbiology URINALYSIS, ROUTINE - 09/28/18 18:57 UA LEUKOCYTE ESTERASE DIPSTICK NEGATIVE NEGATIVE UA NITRITE DIPSTICK NEGATIVE NEGATIVE UA PROTEIN DIPSTICK TRACE NEGATIVE UA GLUCOSE DIPSTICK NEGATIVE NEGATIVE UA KETONE DIPSTICK NEGATIVE NEGATIVE UA UROBILINOGEN DIPSTICK NORMAL MICHAEL L UA BILIRUBIN DIPSTICK NEGATIVE NEGATIVE UA BLOOD DIPSTICK TRACE NEGATIVE UA SPECIFIC GRAVITY 1.025 1.015-1.02 5 UR PH 7.5 5.0-7.0 UA MICROSCOPIC - 09/28/18 18:57 UA BACTERIA 4+ NEGATIVE UA EPITHELIAL CELLS 3+ epi/hpf 0 - 1+ UA RBC 3-5 rbc/hpf 0 - 3 UA VOLUME FOR EXAM 12.0 mL (12mL STD) UA WBC 5-10 wbc/hpf 0 - 5 UR TEST - 09/28/18 18:57 UR TEST NEGATIVE NEGATIVE HIV - 09/28/18 19:48 AB HIV 1 2 NEGATIVE NEGATIVE HIV 1 P24 AG NEGATIVE NEGATIVE RAPID PLASMA REAGIN - 09/28/18 19:48 RAPID PLASMA REAGIN NONREACTIVE NONREAC TIVE Serum or plasma choriogonadotropin (preg ruddy test) detection - 12/03/18 09:15 Serum or plasma choriogonadotropin ( test) de tection NEGATIVE NEGATIVE Complete blood count (CBC) with automate d white blood cell (WBC) differential - 12/03/18 09:15 Blood leukocytes automated count (number/volume) 7.2 10*3/uL 4.3-11.0 Blood erythrocytes automated count (number/volume) 5.11 10*6/uL 4.35-5.85 Venous blood hemoglobin measurement (mass/volume) 14.5 g/dL 11.5-16.0 Blood hematocrit (volume fraction) 45 % 35-52 Automated erythrocyte mean corpuscular volume 88 [ foz_us] 80-99 Automated erythrocyte mean corpuscular h emoglobin (mass per erythrocyte) 28 pg 25-34 Automated erythrocyte mean corpuscular h emoglobin concentration measurement (mass/volume) 32 g/dL 32-36 Automated erythrocyte distribution width ratio 14. 3 % 10.0- 14.5 Automated blood platelet count [...] 10*3 1.0-4.0 Blood monocytes automated count (number/volume) 0. 8 10*3 0.0-1.0 Automated eosinophil count 0.1 10*3/uL 0 .0-0.3 Automated blood basophil count (count/volume) 0.1 10*3/uL 0.0-0.1 Comprehensive metabolic panel - 12/03/18 09:15 Serum or plasma sodium measurement (moles/volume) 137 mmol/L 135-145 Serum or plasma potassium measurement (moles/volume) 4.1 mmol/L 3.6-5.0 Serum or plasma chloride measurement (moles/volume) 106 mmol/L 98-107 Carbon dioxide 23 mmol/L 21-32 Serum or plasma anion gap determination (moles/volume) 8 mmol/L 5-14 Serum or plasma urea nitrogen measurement (mass/volume ) 12 mg/dL 7-18 Serum or plasma creatinine measurement (mass/volume) 0.67 mg/dL 0.60-1.30 Serum or plasma urea nitrogen/creatinine mass ratio 18 NRG Serum or plasma creatinine measurement w ith calculation of estimated glomerular filtration rate > NRG Serum or plasma glucose measurement (mass/volume) 92 mg/dL 70-105 Serum or plasma calcium measurement (mass/volume) 9.7 mg/dL 8.5-10.1 Serum or plasma total bilirubin measurement (mass/volu me) 0.6 mg/dL 0.1-1.0 Serum or plasma alkaline phosphatase karen surement (enzymatic activity/volume) 72 U/L 40-136 Serum or plasma aspartate aminotransfera se measurement (enzymatic activity/volume) 25 U/L 5-34 Serum or plasma alanine aminotransferase measurement (enzymatic activity/volume) 35 U/L 0-55 Serum or plasma protein measurement (mass/volume) 7.5 g/dL 6.4-8.2 Serum or plasma albumin measurement (mass/volume) 4.5 g/dL 3.2-4.5 CALCIUM CORRECTED 9.3 mg/dL 8.5-10.1 Lipase - 12/03/18 09:15 Lipase 22 U/L 8-78 Serum or plasma ethanol measurement (mas s/volume) - 12/03/18 09:15 Serum or plasma ethanol measurement (mass/volume) < mg/dL <10 Complete urinalysis with reflex to cultu re - 12/03/18 09:50 Urine color determination YELLOW NRG Urine clarity determination CLEAR NR G Urine pH measurement by test strip 7 5-9 Specific gravity of urine by test strip 1.010 1.016-1.022 Urine protein assay by test strip, semi-quantitative NEGATIVE NEGATIVE Urine glucose detection by automated test strip NE GATIVE NEGATIVE Erythrocytes detection in urine sediment by light micr oscopy NEGATIVE NEGATIVE Urine ketones detection by automated test strip NE GATIVE NEGATIVE Urine nitrite detection by test strip NEGATIVE NEGATIVE Urine total bilirubin detection by test strip NEGA TIVE NEGATIVE Urine urobilinogen measurement by automated test strip (mass/volume) NORMAL NORMAL Urine leukocyte esterase detection by dipstick 1+ NEGATIVE Automated urine sediment erythrocyte cou nt by microscopy (number/high power field) NONE NRG Automated urine sediment leukocyte count by microscopy (number/high power field) NONE NRG Bacteria detection in urine sediment by light microsco py NEGATIVE NRG Squamous epithelial cells detection in u rine sediment by light microscopy 10-25 NRG Crystals detection in urine sediment by light microsco py NONE NRG Casts detection in urine sediment by light microscopy NONE NRG Mucus detection in urine sediment by light microscopy NEGATIVE NRG Complete urinalysis with reflex to culture NO NRG GC/CHLAMYDIA (SWAB OR URINE)-RAPID - 12/15 14:35 CHLAMYDIA TRACHOMATIS RNA, TMA NOT DETECTED NOT DETECTED NEISSERIA GONORRHOEAE RNA, TMA NOT DETECTED NOT DETECTED COMMENT NRG HIV ANTIGEN/ANTIBODY - 01/01/19 14:48 HIV AG/AB, 4TH GEN NON-REACTIVE NON-KEITH CTIVE SYPHILIS (RPR W/ REFLEX CONFIRMATION) - 01/01/19 14:48 RPR (DX) W/REFL TITER AND CONFIRMATORY TESTING NON-REACTIVE NON-REACTIVE HEP B SURFACE ANTIGEN - 01/01/19 14:48 HEPATITIS B SURFACE ANTIGEN NON-REACTIVE NON-REACTIVE HCG, QUANTITATIVE - 01/01/19 14:48 HCG, TOTAL, QN <2 mIU/mL NRG CULTURE, URINE - 08/03/19 15:43 CULTURE, URINE, ROUTINE SEE NOTE NRG Complete urinalysis with reflex to cultu re - 09/27/19 23:08 Urine color determination YELLOW NRG Urine clarity determination CLEAR NR G Urine pH measurement by test strip 7.5 5-9 Specific gravity of urine by test strip 1.020 1.016-1.022 Urine protein assay by test strip, semi-quantitative NEGATIVE NEGATIVE Urine glucose detection by automated test strip NE GATIVE NEGATIVE Erythrocytes detection in urine sediment by light micr oscopy 1+ NEGATIVE Urine ketones detection by automated test strip NE GATIVE NEGATIVE Urine nitrite detection by test strip NEGATIVE NEGATIVE Urine total bilirubin detection by test strip NEGA TIVE NEGATIVE Urine urobilinogen measurement by automated test strip (mass/volume) 0.2 mg/dL < = 1.0 Urine leukocyte esterase detection by dipstick NEG ATIVE NEGATIVE Automated urine sediment erythrocyte cou nt by microscopy (number/high power field) [HPF] NRG Automated urine sediment leukocyte count by microscopy (number/high power field) [HPF] NRG Bacteria detection in urine sediment by light microsco py LARGE NRG Squamous epithelial cells detection in u rine sediment by light microscopy 10-25 NRG Crystals detection in urine sediment by light microsco py NONE NRG Casts detection in urine sediment by light microscopy NONE NRG Mucus detection in urine sediment by light microscopy NEGATIVE NRG Complete urinalysis with reflex to culture YES NRG Bacterial urine culture - 09/27/19 23:08 Bacterial urine culture 3 OR MORE NRG COLONY COUNT >100,000/ML NRG FTX;REPORTABLE GRAM POSITIVE ISOLATES; SUGGESTING NRG FREE TEXT ENTRY 2 PROBABLE COLLECTION CONTAMINATIO N WITH NRG FREE TEXT ENTRY 3 SKIN JING. NO SUSCEPTIBILITY PE RFORMED. NRG Complete blood count (CBC) with automate d white blood cell (WBC) differential - 09/27/19 23:15 Blood leukocytes automated count (number/volume) 12.1 10*3/uL 4.3-11.0 Blood erythrocytes automated count (number/volume) 4.77 10*6/uL 4.35-5.85 Venous blood hemoglobin measurement (mass/volume) 14.2 g/dL 11.5-16.0 Blood hematocrit (volume fraction) 43 % 35-52 Automated erythrocyte mean corpuscular volume 89 [ foz_us] 80-99 Automated erythrocyte mean corpuscular h emoglobin (mass per erythrocyte) 30 pg 25-34 Automated erythrocyte mean corpuscular h emoglobin concentration measurement (mass/volume) 33 g/dL 32-36 Automated erythrocyte distribution width ratio 13. 2 % 10.0- 14.5 Automated blood platelet count (count/volume) 286 10*3/uL 130-400 Automated blood platelet mean volume measurement 10.4 [foz_us] 7.4-10.4 Automated blood neutrophils/100 leukocytes 55 % 42-75 Automated blood lymphocytes/100 leukocytes 36 % 12-44 Blood monocytes/100 leukocytes 7 % 0-12 Automated blood eosinophils/100 leukocytes 1 % 0-10 Automated blood basophils/100 leukocytes 0 % 0-10 Blood neutrophils automated count (number/volume) 6.7 10*3 1.8-7.8 Blood lymphocytes automated count (number/volume) 4.3 10*3 1.0-4.0 Blood monocytes automated count (number/volume) 0. 9 10*3 0.0-1.0 Automated eosinophil count 0.1 10*3/uL 0 .0-0.3 Automated blood basophil count (count/volume) 0.1 10*3/uL 0.0-0.1 Serum or plasma choriogonadotropin (preg ruddy test) detection - 09/27/19 23:15 Serum or plasma choriogonadotropin ( test) de tection NEGATIVE NEGATIVE Comprehensive metabolic panel - 09/27/19 23:15 Serum or plasma sodium measurement (moles/volume) 141 mmol/L 135-145 Serum or plasma potassium measurement (moles/volume) 4.1 mmol/L 3.6-5.0 Serum or plasma chloride measurement (moles/volume) 102 mmol/L 98-107 Carbon dioxide 23 mmol/L 21-32 Serum or plasma anion gap determination (moles/volume) 16 mmol/L 5-14 Serum or plasma urea nitrogen measurement (mass/volume ) 16 mg/dL 7-18 Serum or plasma creatinine measurement (mass/volume) 0.63 mg/dL 0.60-1.30 Serum or plasma urea nitrogen/creatinine mass ratio 25 NRG Serum or plasma creatinine measurement w ith calculation of estimated glomerular filtration rate > NRG Serum or plasma glucose measurement (mass/volume) 86 mg/dL 70-105 Serum or plasma calcium measurement (mass/volume) 9.8 mg/dL 8.5-10.1 Serum or plasma total bilirubin measurement (mass/volu me) 0.6 mg/dL 0.1-1.0 Serum or plasma alkaline phosphatase karen surement (enzymatic activity/volume) 76 U/L 40-136 Serum or plasma aspartate aminotransfera se measurement (enzymatic activity/volume) 25 U/L 5-34 Serum or plasma alanine aminotransferase measurement (enzymatic activity/volume) 38 U/L 0-55 Serum or plasma protein measurement (mass/volume) 7.9 g/dL 6.4-8.2 Serum or plasma albumin measurement (mass/volume) 4.7 g/dL 3.2-4.5 Lipase - 09/27/19 23:15 Lipase 42 U/L 8-78 HCG, QUANTITATIVE - 10/07/19 16:31 HCG, TOTAL, QN <2 mIU/mL NRG Complete urinalysis with reflex to cultu re - 10/08/19 20:15 Urine color determination YELLOW NRG Urine clarity determination CLEAR NR G Urine pH measurement by test strip 7.0 5-9 Specific gravity of urine by test strip 1.020 1.016-1.022 Urine protein assay by test strip, semi-quantitative NEGATIVE NEGATIVE Urine glucose detection by automated test strip NE GATIVE NEGATIVE Erythrocytes detection in urine sediment by light micr oscopy 1+ NEGATIVE Urine ketones detection by automated test strip NE GATIVE NEGATIVE Urine nitrite detection by test strip NEGATIVE NEGATIVE Urine total bilirubin detection by test strip NEGA TIVE NEGATIVE Urine urobilinogen measurement by automated test strip (mass/volume) 0.2 mg/dL < = 1.0 Urine leukocyte esterase detection by dipstick NEG ATIVE NEGATIVE Automated urine sediment erythrocyte cou nt by microscopy (number/high power field) [HPF] NRG Automated urine sediment leukocyte count by microscopy (number/high power field) NONE NRG Bacteria detection in urine sediment by light microsco py NONE NRG Squamous epithelial cells detection in u rine sediment by light microscopy 2-5 NRG Crystals detection in urine sediment by light microsco py NONE NRG Casts detection in urine sediment by light microscopy NONE NRG Mucus detection in urine sediment by light microscopy NEGATIVE NRG Complete urinalysis with reflex to culture NO NRG Radiology Report from [facility] on 014 12:20:00 DIAGNOSTIC KAMI GING REPORT [facility] - [address] [place] [address] PHONE #: [phone] FAX #: [phone] Name: SHAYLA BAILON MA [facility] No: : 1995 Age: 18 Sex: F Status: REG ER Unit No: [id number] Phys: Robert East MD Acct: [id number] Reason For Exam: injury Exam Date: 04/27/2014 EXAMS: CPT CODE: [id number] HAND LEFT 89924 TIME OF EXAM: 04/27/2014 11:39 AM REASON FOR EXAM: injury. Hand laceration COMPARISON: None. FINDINGS: AP, lateral, and oblique views of the left hand were obtained. There are no fractures, dislocations, or other acute bony abnormalities. The joint spaces are well maintained throughout. No radiopaque foreign bodies are identified. There is no significant soft tissue swelling. IMPRESSION: 1. No acute fracture or dislocation of the left hand. I have personally reviewed these images and approved or corrected the resident physician's interpretation. at 1215 RESIDENT: NENO JONES MD Reported and signed by: RASHID BINGHAM MD CC: Robert Prasad MD Technologist: DARWIN HERBERT Transcribed Date/Time: 04/27/2014 (5379)Geothermal Operating Engineer: SEBASTIÁN Printed Date/Time: 04/27/2014 (4496) BATCH NO: N/A PAGE 1 Signed Report Radiology Report from [facility] on 015 18:07:00 DIAGNOSTIC KAMI GING REPORT [facility] - [address] [place] [address] PHONE #: [phone] FAX #: [phone] Name: SHAYLA BAILON MA [facility] No: : 1995 Age: 19 Sex: F Status: REG ER Unit No: [id number] Phys: ANGEL Roxann ChenjennyferRobert APRN Acct: [id number] Reason For Exam: fall, chest pain Exam Date: 10/25/2014 EXAMS: CPT CODE: [id number] CHEST AP/PA LATERAL 54850 REASON FOR EXAM: fall, chest pain 10/25/2014 5:18 PM Comparison: None PA and lateral views of the chest were obtained. Heart size and pulmonary vascularity are normal. The lungs are clear. No fracture, effusion or pneumothorax is seen. Impression: No acute chest disease. at 1800 Reported and signed by: CLAUDE REYNOLDS MD CC: Technologist: TRAVIS MEDINA Transcribed Date/Time: 10/25/2014 (1800)Geothermal Operating Engineer: PMCGUCHW Printed Date/Time: 10/25/2014 (3591) BATCH NO: N/A PAGE 1 Signed Report Radiology Report from [facility] on 07/20/20 19:51:00 DIAGNOSTIC KAMI GING REPORT [facility] - [address] [place] [address] PHONE #: [phone] FAX #: [phone] Name: SHAYLA BAILON MA Loc: [facility] Radiology No: : 1995 Age: 19 Sex: F Status: REG ER Unit No: [id number] Phys: Sierra Melo MD Acct: [id number] Reason For Exam: chest pain, cough Exam Date: 07/20/2015 EXAMS: CPT CODE: [id number] CHEST AP/PA LATERAL 59916 PROCEDURE: - CHEST AP/PA LATERAL TIME OF EXAM: 07/20/2015 6:57 PM REASON FOR EXAM: chest pain, cough COMPARISON: None. FINDINGS: Frontal and lateral views of the chest are obtained. The cardiac silhouette is normal in size and shape. The pulmonary vascularity is within normal limits. No focal infiltrate, effusion or pneumothorax is seen. Bony and soft tissue structures are within normal limits. IMPRESSION: No acute pulmonary process identified. at 1945 Reported and signed by: CHANELLE LEON MD CC: Sierra Lawson MD Technologist: TRAVIS MEDINA Transcribed Date/Time: 07/20/2015 (1944)Geothermal Operating Engineer: JUAREZ Printed Date/Time: 07/20/2015 (1950) BATCH NO: N/A PAGE 1 Signed Report Radiology Report from [facility] on 2015 10:16:00 DIAGNOSTIC KAMI GING REPORT [facility] - [address] [address] PHONE #: [phone] FAX #: [phone] Name: SHAYLA BAILON MA Loc: [facility] Radiology No: : 1995 Age: 19 Sex: F Status: REG REF Unit No: [id number] Phys: [facility] Neno Koroma MD R Acct: [id number] Reason For Exam: FX KRISTI Exam Date: 08/26/2015 EXAMS: CPT CODE: [id number] ELBOW LEFT 82447 PROCEDURE: - ELBOW LEFT TIME OF EXAM: 08/26/2015 9:45 AM REASON FOR EXAM: FX KRISTI TECHNIQUE: 3 views COMPARISON: None. There is an oblique comminuted fracture of the distal humerus with a longitudinal component that extends through the intercondylar notch and to the joint space. There is a large elbow joint effusion. No other evidence of fracture or dislocation is seen. No evidence of abnormal bone destruction is seen. IMPRESSION: Comminuted distal humeral fracture which extends longitudinally to the articular surface in near anatomic alignment. at 1010 Reported and signed by: RASHID BINGHAM MD CC: Technologist: LAZ SOLIS Transcribed Date/Time: 08/26/2015 (1010)Geothermal Operating Engineer: SEBASTIÁN Printed Date/Time: 08/26/2015 (1016) BATCH NO: N/A PAGE 1 Signed Report Radiology Report from [id number] on 12/19 06:13:00 Reason For ExamFALL, +LOCREPORTPROCEDURE : CT head and CT cervical spine without contrast.TECHNIQUE: Multiple contiguous axial images were obtained through the brain andcervical spine without the use of intravenous contrast. Sagittal and coronalreformations through the cervical spine were then performed.INDICATION: Fall, head and neck painCOMPARISON: NoneCT head:The ventricles are normal in size, shape, and position. There is no midlineshift or mass effect. There is no hemorrhage or evidence of acute ischemia.There is no skull fracture. The visualized paranasal sinuses and mastoids areclear.IMPRESSION: Negative CT headCT cervical spine:Alignment is normal. There is no subluxation or fracture. Vertebral bodyheights and disc spaces are well-maintained.IMPRESSION: Negative CT cervical spine.Agree with preliminary report.Dictated on workstation:[id number] Line PRELIMINARY DICTATED BY: BALAJI MON MDDICTATED DT/TM: 12/20/2015 5:54 Radiology Report from [id number] on 03/03 20:53:00 Reason For ExamPEREPORTPROCEDURE: CT ang iography ChestTECHNIQUE: After intravenous administration of contrast, thin section axial CTangiography of the chest was performed. MIP reconstructions were made.Indication: Epigastric pain extending to the left shoulder for several hours,dyspnea.Comparison: None.Discussion: No pulmonary embolus is identified. The lungs are well-aerated. Nofocal consolidation or pulmonary nodule is identified. The thoracic aorta isnormal in caliber and configuration. Normal heart size. No pleural orpericardial fluid. No mediastinal, hilar, or axillary adenopathy. Thevisualiz ed upper abdomen is unremarkable. No osseous abnormality is identified.Impression:1. No pulmonary embolus or other acute abnormality identified within the chest.Tech Comments: IV Contrast Name: omni 350Contrast amount in ml's: 100Dictated on workstation:[id number] Line PRELIMINARY DICTATED BY: SIERRA CROWE MDDICTATED DT/TM: 03/03/2016 8:49 Radiology Report from [id number] on 04/24 18:08:00 Reason For ExamInjury, shoulder scapula upper armREPORTXR Elbow Complete Left, XR Humerus LeftComparison: Left elbow radiographs of 09/18/2015Indication: Arm pain after fall and hitting arm on curbTechnique: 2 views of the humerus and 3 views of the left elbowFindings:Humerus: There is no acute fracture within the proximal humerus. Theglenohumeral and acromioclavicular alignment appear normal. ORIF changes in thedistal humerus are detailed below.Elbow: ORIF changes of healed distal humeral fracture utilizing multiple plateand screws. No evidence of hardware fracture. No acute fracture. Elbow isnormal alignment. No evidence of joint effusion.Impression:1. No acute fracture in the left humerus or proximal forearm.2. ORIF changes of healed distal humeral fracture. No hardware fracture orcomplication.Dictated on workstation:[id number] Line FINAL DICTATED BY: ORIANA CARRIZALES MDDICTATED DT/TM: 04/23/2016 6:59 AMSIGNED BY: ORIANA CARRIZALES MDSIGNED (ELECTRONIC SIGNATURE): 04/23/2016 8:21 AMTECHNOLOGIST: ADA ORTEGA ARRT Radiology Report from [id number] on 04/09 20:37:00 Reason For ExamAbdominal pain, generaliz edREPORTPROCEDURE: CT abdomen and pelvis with contrast.TECHNIQUE: Multiple contiguous axial images were obtained through the abdomenand pelvis after administration of intravenous contrast.INDICATION: Sudden onset abdominal pain. Nausea.COMPARISON: None.FINDINGS: Included portions of the lung bases are clear.CT ABDOMEN: Small bowel loops are nondistended. Normal appendix is identified.The kidneys, adrenal glands, spleen, pancreas, and liver have a normal CTappearance. There is no loculated fluid collection, free fluid, or free airwithin the abdomen. No abnormal mesenteric or retroperitoneal adenopathy isseen. Bony structures show no acute abnormalities.CT PELVIS: Urinary bladder wall appears somewhat thickened, although the urinarybladder is only minimally distended. Uterus is retroverted. There does appear annie small amount of free fluid within the pelvis. There is no loculated fluidcollection or free air. No abnormal adenopathy is seen. Bony structures show noacute abnormalities.IMPRESSION:1. Somewhat thickened appearance to the wall of the urinary bladder. This may beartifactual and related to incomplete distention. However, similar appearancemay also be seen with underlying cystitis. Clinical correlation recommended.2. Small amount of free fluid within the pelvis; possibly physiologic.Tech Comments: IV Contrast Name: OMNI 300Contrast amount in ml's: 80Dictated on workstation:[id number] Line FINAL DICTATED BY: DEENA SALGADO MDDICTATED DT/TM: 04/09/2017 2:03 PMSIGNED BY: DEENA SALGADO MDSIGNED (ELECTRONIC SIGNATURE): 04/09/2017 5:12 PMTECHNOLOGIST: NUPUR STROUD RT (R)(CT) Radiology Report from [id number] on 09/27 20:35:00 Reason For Examabdominal pain, REPORTPROCEDURE: US Gallbladder.TECHNIQUE: Multiple real-time grayscale images were obtained over the rightupper quadrant in various projections.INDICATION: Right upper quadrant painCOMPARISON: NoneFINDINGS:The liver appears unremarkable. There is no biliary dilatation. The common bileduct measures about 2 mm. Doppler imaging demonstrates normal hepatopetal flowin the main portal vein. The gallbladder is contracted which is likely due topostprandial status, the patient states she 1 hour ago. No stones.Pericholecystic fluid or sonographic Arcos's sign. The pancreas is not welldemonstrated. The right kidney measures 10 cm in length and appears normal.There is no ascites.IMPRESSION:No acute abnormality is seen. The gallbladder is contracted which is likely postprandial. The pancreas is not well evaluated.Dictated on workstation:[id number] Line FINAL DICTATED BY: FIFI SOLIS DODICTATED DT/TM: 09/27/2017 4:03 PMSIGNED BY: FIFI SOLIS DOSIGNED (ELECTRONIC SIGNATURE): 09/27/2017 4:07 PMTECHNOLOGIST: TENISHA JASSO [facility] Radiology Report from [id number] on 09/27 20:39:00 Reason For ExamVaginal discharge, abdomi nal pain, hx 'ghost sac'REPORTINDICATION: Vaginal discharge.TECHNIQUE: Multiple realtime grayscale images were obtained over the graviduterus in various projections.FINDINGS: There is a single living intrauterine in a breechpresentation. The placenta is anterior. Largest vertical pocket of amnioticfluid is 4.05. Heart rate is 140 beats per minute. The cervical length is 3.9cm. The anatomical survey was grossly unremarkable apart from limitedvisualization of the kidneys.IMPRESSION:1. Single living intrauterine in a breech presentat ion with ananterior placenta.2. Kidneys were not well visualized.HISTORY: Live Births: 1 AB: - Previous : - IUGR: - : -LMP: - EDC by LMP: 02/26/2018MEASUREMENTS: SURVEY:Amniotic Fluid Index: MVP-4.05 Number: 1Cardiac Activity: 140 BPM Position:BREECHCervical length: 3.90 cm Placenta Loc: ANTERIORCord RI: - Plac Previa: -Normal Anatomy VisualizedStomach YKidneys -Bladder YFetal Motion Y4CH Heart YDictated on workstation:[id number] Line FINAL DICTATED BY: DEMETRIS NORTON II MDDICTATED DT/TM: 09/27/2017 4:17 PMSIGNED BY: DEMETRIS NORTON II MDSIGNED (ELECTRONIC SIGNATURE): 09/27/2017 4:39 PMTECHNOLOGIST: TENISHA JASSO [facility] Radiology Report from [id number] on 03/07 07:12:00 Reason For ExamAbdominal pain, generaliz edREPORTPROCEDURE: US Gallbladder.TECHNIQUE: Multiple real-time grayscale images were obtained over the rightupper quadrant in various projections.INDICATION: Epigastric abdominal pain. Nausea and vomiting.COMPARISON: NoneTECHNIQUE: Grayscale abdominal ultrasound. Color flow and duplex Dopplerevaluation is performed.FINDINGS:Liver: Normal in size and echotexture. No focal lesion is seen.Gallbladder: No gallstones. Normal wall thickness. No pericholecystic fluid.Negative Arcos sign.Biliary Tree: No intra or extrahepatic biliary ductal dilatation is identified.The proximal common duct measures 0.2 cm in diameter.Pancreas: No abnormality in the visualized portions of the pancreas.Spleen: Normal in size and echotexture.Right kidney: Normal parenchymal echotexture and thickness. No hydronephrosis,stone or mass.IMPRESSION:Normal abdominal ultrasound.Dictated on workstation:[id number] Line PRELIMINARY DICTATED BY: JOSE CARLOS ABREU DODJOSSELYNATED DT/TM: 03/07/2018 6:54 Radiology Report from [id number] on 03/07 07:23:00 Reason For ExamAbdominal pain, generaliz edREPORTXR Abdomen Series w/ Chest 1 ViewINDICATION/CLINICAL QUESTION: Epigastric pain. Nausea and vomiting.COMPARISON: 03/03/2016FINDINGS:LINES AND TUBES:None.LUNGS AND PLEURA:No pneumothorax. No pleural effusion. The lungs are clear. Pulmonary vascularityis normal.HEART, MEDIASTINUM AND JOSÉ MIGUEL:Heart is normal in size. Normal mediastinal silhouette.BONES:No acute bony abnormalities.ABDOMEN:Nonobstructive bowel gas pattern. Gas and stool is demonstrated through much ofthe colon. There is a moderate amount of retained stool in the ascending andtransverse colon. No pneumoperitoneum. No abnormal abdominal calcifications. Noorganomegaly.IMPRESSION:No acute chest disease.Nonobstructive bowel gas pattern. Moderate amount of retained stool.Dictated on workstation:Ziegler [id number] Line PRELIMINARY DICTATED BY: JOSE CARLOS ABREUATED DT/TM: 03/07/2018 6:58 Radiology Report from [facility] on 08/24/19 19 08:13:00 PATIENT NAME: SHAYLA BAILON UNIT NO: [id number] EXAMS: CPT CODE: [id number] XR ELBOW LEFT SINGLE VIEW 76523 [id number] XR IMAGE INT/UP TO ONE HOUR 03623 TIME OF STUDY: 08/23/2018 9:15 AM REASON FOR EXAM: LT ELBOW HARDWARE REMOVAL TOTAL FLUOROSCOPY TIME: 1.8 seconds TOTAL NUMBER OF IMAGES: 1 CUMULATIVE DOSE: Not provided TECHNIQUE: Fluoroscopic assistance was provided by the radiology department in the operating room for left elbow hardware removal. A radiologist was not present at the time of the exam. FINDINGS: A total of 1 fluoroscopy stored image of the left elbow was obtained intraoperatively demonstrating plate and screw fixation of the left distal humerus. IMPRESSION: 1. Intraoperative removal of hardware from the left elbow. I have personally reviewed these images and have approved or corrected the resident physician's interpretation. at 0808 RESIDENT: GAEL PEDROZA DO Reported and signed by: BEVERLY NOLEN MD CC: Oswald Hayes MD TECHNOLOGIST: CATARINO CARDENAS TRANSCRIBED DATE/Time: 08/24/2018 0808 BY: DAIANA EXAM COMPLETE DATE/TIME: [id number] D/TM:08/24/2018 (0813) [facility] NAME: UVALDOSHAYLA SIERRA EVELYN [address] HP: [phone] AGE: 22 S:F [place], [place] [address] : 1995 LOC: [facility] PHYS: Oswald Bradshaw MD PHONE #: [phone] EXAM DATE: 08/23/2018 STATUS: [facility] FAX #: [phone] A#: [id number] U#: [id number] PAGE 1 Signed Report *Final Page* Radiology Report from [facility] on 08/24/19 08:13:00 PATIENT NAME: SHAYLA BAILON [place] UNIT NO: [id number] EXAMS: CPT CODE: [id number] XR ELBOW LEFT SINGLE VIEW 49976 [id number] XR IMAGE INT/UP TO ONE HOUR 52621 TIME OF STUDY: 08/23/2018 9:15 AM REASON FOR EXAM: LT ELBOW HARDWARE REMOVAL TOTAL FLUOROSCOPY TIME: 1.8 seconds TOTAL NUMBER OF IMAGES: 1 CUMULATIVE DOSE: Not provided TECHNIQUE: Fluoroscopic assistance was provided by the radiology department in the operating room for left elbow hardware removal. A radiologist was not present at the time of the exam. FINDINGS: A total of 1 fluoroscopy stored image of the left elbow was obtained intraoperatively demonstrating plate and screw fixation of the left distal humerus. IMPRESSION: 1. Intraoperative removal of hardware from the left elbow. I have personally reviewed these images and have approved or corrected the resident physician's interpretation. at 0808 RESIDENT: GAEL PEDROZA DO Reported and signed by: BEVERLY NOLEN MD CC: Oswald Hayes MD TECHNOLOGIST: CATARINO CARDENAS TRANSCRIBED DATE/Time: 08/24/2018 0808 BY: DAIANA EXAM COMPLETE DATE/TIME: [id number] D/TM:08/24/2018 (812) [facility] NAME: SHAYLA BAILON [address] HP: [phone] AGE: 22 [place] [address] : 1995 LOC: [facility] PHYS: Oswald Bradshaw MD PHONE #: [phone] EXAM DATE: 08/23/2018 STATUS: [facility] FAX #: [phone] A#: [id number] U#: [id number] PAGE 1 Signed Report *Final Page* Radiology Report from [id number] on 01/24 19:10:00 Reason For ExamPain in joint, elbow/uppe r armREPORTINDICATION: Left elbow pain from a fall.FINDINGS: Three views of the left elbow show postoperative changes fromreconstructive internal fixation of the distal humerus with multiple plates andscrews. There is no acute fracture. Hardware appears to be intact. Fracturesappear to have healed in good alignment. There is no appreciable joint effusion.Radius and ulna appear to be grossly intact.IMPRESSION: Postsurgical changes from internal fixation of the distal humerus.No acute abnormalities seen.Dictated on workstation:[id number] Line FINAL DICTATED BY: KYM HAYWOOD MDDICTATED DT/TM: 01/21/2019 12:34 PMSIGNED BY: KYM HAYWOOD MDSIGNED (ELECTRONIC SIGNATURE): 01/21/2019 5:29 PMTECHNOLOGIST: BALAJI GUEVARA RT(R) Encounters ACCT No. Visit Date/Time Discharge Status Pt. Type Provider Facility Loc./Unit Complaint [id number] 04/27/2016 11:02:00 04/27/2016 23:5 9:59 CLS Outpatient [id number] 10/07/2019 16:00:00 10/07/2019 23:59: 59 C[id number] 10/07/2019 16:00:00 Document Registration [id number] 08/03/2019 14:50:00 Document Registration [id number] 01/01/2019 14:30:00 Document Registration [id number] 10/08/2019 20:08:00 21:14:00 DIS Emergency NICOL ROBERTS, STEFANY Jack [facility] ER FS LIGHTHEADED,NAUSEA,HEADACHE,WEAKNESS [id number] 09/27/2019 23:02:00 00:28:00 DIS Emergency KENY ROBERTS, SHRADDHA [facility] ER FS LOWER ABDOMINAL PAIN/NA USEA AND VOMITTIN [id number] 01/11/2019 01:57:00 03:06:00 DIS Emergency CHANELLE BYNUM DO a [facility] ER FELL ON BROKEN ARM AT T HE P[place] [id number] 12/03/2018 08:59:00 23:59:59 CLS Emergency KUMAR ROBERTS, ZOEY Pichardo [facility] ER ABD PAIN [id number] 01/21/2019 11:42:00 13:20:00 DIS Emergency Mirna Camargo [facility] on [facility] ED L arm injury [id number] 02/17/2018 02:06:00 16:25:00 DIS Inpatient Das Matthew Vi a [facility] on [facility] J4W Obstetrics [id number] 02/16/2018 20:33:00 22:12:00 DIS Outpatient Das Matthew V ia [facility] on [address] Obstetrics [id number] 02/16/2018 02:46:00 018 05:22:00 DIS Outpatient Vitaly, [facility] on [address] Obstestrics [id number] 01/09/2018 20:23:00 018 22:40:00 DIS Outpatient Vo,, [facility] on [address] ob [id number] 12/19/2017 21:20:00 018 23:38:00 DIS Outpatient Vo,, [facility] on [address] OB [id number] 12/19/2017 18:23:00 018 19:37:00 DIS Outpatient Vo,, [facility] on [address] OB [id number] 12/13/2017 22:19:00 018 01:24:00 DIS Outpatient Pippa,Galo [facility] on [address] ob [id number] 09/27/2017 14:07:00 018 16:39:00 DIS Emergency Tripp Jacob [facility] on [facility] ED 17wks PG abd pain [id number] 07/06/2017 17:35:00 017 20:02:00 DIS Emergency Muñiz [facility] on [facility] ED vaginal pain [id number] 06/27/2017 12:22:00 017 15:07:00 DIS Emergency Tripp Jacob [facility] on [facility] ED with abdominal pa in, dizzy [id number] 04/09/2017 11:27:00 017 14:31:00 DIS Emergency Tripp Jacob [facility] on [facility] ED abd pain [id number] 01/02/2017 04:41:00 017 15:22:00 DIS Inpatient Das Matthew Vi [facility] on [facility] J obstetrics [id number] 01/01/2017 18:35:00 017 21:00:00 DIS Outpatient Voth,, [facility] on [address] Obstetrics [id number] 12/26/2016 16:57:00 017 19:55:00 DIS Outpatient Voth,, [facility] on [address] ob [id number] 12/16/2016 22:33:00 017 00:15:00 DIS Outpatient Voth,, [facility] on [address] Obstetrics [id number] 12/14/2016 10:39:00 017 11:48:00 DIS Outpatient Voth,, [facility] on [address] ob [id number] 12/01/2016 23:33:00 017 01:13:00 DIS Outpatient Voth,, [facility] on [address] ob [id number] 10/09/2016 08:38:00 017 11:21:00 DIS Outpatient Voth,, [facility] on [address] obstetrics [id number] 09/18/2016 19:34:00 017 22:59:00 DIS Outpatient Voth,, [facility] on [address] ob [id number] 04/23/2016 04:49:00 016 06:27:00 DIS Emergency Khoury Daniel Vi [facility] on [facility] ED left arm bruising and swel ling [id number] 03/03/2016 18:34:00 016 21:05:00 DIS Emergency Andrey Barahona [facility] on [facility] ED L sided rib pain [id number] 02/03/2016 14:37:00 016 16:11:00 DIS Emergency Tobin Nancy [facility] on [facility] ED abd pain, vaginal bleeding [id number] 12/20/2015 00:17:00 02:36:00 DIS Emergency Andrey Barahona [facility] yesterday, head injur y [id number] 08/31/2015 07:19:00 12:50:00 DIS Outpatient Oswald Hayes Via [facility] on [place] [facility] F5N Left Distal [place] F racture [id number] 01/22/2019 05:17:07 Document Registration [id number] 03/08/2018 05:19:34 Document Registration [id number] 03/07/2018 05:31:00 Document Registration [id number] 02/19/2018 05:20:24 Document Registration [id number] 02/18/2018 05:16:18 Document Registration [id number] 02/17/2018 05:16:36 Document Registration [id number] 01/10/2018 05:17:29 Document Registration [id number] 12/20/2017 05:17:28 Document Registration [id number] 12/14/2017 05:16:51 Document Registration [id number] 09/28/2017 05:17:51 Document Registration [id number] 04/10/2017 05:17:26 Document Registration [id number] 01/04/2017 05:16:11 Document Registration [id number] 01/03/2017 05:19:55 Document Registration [id number] 01/02/2017 05:24:31 Document Registration [id number] 12/27/2016 05:16:09 Document Registration [id number] 11/25/2016 05:16:23 Document Registration [id number] 10/10/2016 05:16:42 Document Registration [id number] 09/19/2016 05:15:56 Document Registration [id number] 09/09/2016 05:16:27 Document Registration [id number] 03/04/2016 05:16:21 Document Registration [id number] 02/04/2016 05:17:31 Document Registration [id number] 12/20/2015 05:16:02 Document Registration [id number] 09/02/2015 05:16:21 Document Registration [id number] 09/01/2015 05:17:23 Document Registration [id number] 09/01/2015 05:17:22 Document Registration [id number] 08/24/2015 05:16:49 Document Registration [id number] 05/19/2015 11:33:58 Document Registration [id number] 05/19/2015 11:28:03 Document Registration [id number] 09/28/2018 18:22:00 019 20:30:00 DIS Emergency Ravi ROBERTS, [facility] [id number] 08/23/2018 06:32:00 019 11:24:00 DIS [id number] 08/19/2018 13:27:00 019 13:27:00 DIS Outpatient Freddy ROBERTS, [facility] [id number] 08/10/2018 11:22:00 019 12:12:00 DIS Emergency Dulce ROBERTS[facility] [id number] 07/12/2018 11:38:00 018 12:26:00 DIS [id number] 06/03/2018 20:33:00 018 21:59:00 DIS Emergency Jeny ROBERTS, [facility] [id number] 07/24/2017 12:42:00 017 14:09:00 DIS Emergency [facility] [id number] 08/04/2016 15:34:00 017 16:02:00 DIS Emergency [facility] [id number] 07/18/2016 22:41:00 016 23:17:00 DIS Emergency Barb ROBERTS, [facility] [id number] 07/20/2015 18:25:00 015 20:25:00 DIS Emergency Renny ROBERTS, [facility] W.EDW [id number] 10/25/2014 16:18:00 015 18:28:00 DIS Emergency Ronak EPSTEIN, [facility]nie [facility] W.EDW [id number] 04/27/2014 10:51:00 014 13:25:00 DIS Emergency Shanice ROBERTS, [facility] W.EDW [id number] 02/19/2014 10:40:00 014 14:50:00 DIS Emergency Shanice ROBERTS, [facility].EDW [id number] 01/30/2014 15:20:00 014 17:35:00 DIS Emergency Maurilio ROBERTS, [facility].EDW [id number] 07/24/2013 22:59:00 013 23:48:00 DIS Emergency Pipe ROBERTS, [facility] W.EDW [id number] 05/27/2013 20:41:00 013 22:32:00 DIS Emergency Pipe ROBERTS, [facility].EDW [id number] 08/26/2015 10:16:00 Document Registration
== END 2019-10-08 21:14 | disposition home or self-care (01) ==
LOC: EDUNIT# 20:07 → ER FS 20:08
DX: R42 Dizziness and giddiness (principal); M79.89 Other specified soft tissue disorders; R51 Headache; K58.9 Irritable bowel syndrome, unspecified; F17.210 Nicotine dependence, cigarettes, uncomplicated; Z88.0 Allergy status to penicillin; Z88.1 Allergy status to other antibiotic agents
CPT/HCPCS: 81000; 84703; 99282

== ENCOUNTER 2020-04-26 23:50 | Emergency (ER) | payer MEDICAID ==
[~2020-04-26] VITALS: Ht 165.1 cm; Wt 63.1 kg
[2020-04-26 23:55] VITALS: BP 109/66
--- NOTE | 2020-04-27 00:14 | ED General ---
General Stated Complaint: 4 MOS PREG, ABD PAINS Source of Information: Patient History of Present Illness Date Seen by Provider: Apr 26, 2020 Time Seen by Provider: 23:55 Initial Comments This patient is a 24-year-old female presents to the emergency department with complaint of pelvic cramping. Patient states it started about 30 minutes 1 hour ago after watching football game. Patient denies any urinary tract symptoms. Patient states she is 17 weeks . States she is a patient denies any vaginal discharge or vaginal bleeding. Patient's describes as cramping on one side and then the other with no focus cramping. Doesn't know what as Bravo Dsouza contractions. heart tones are 147. Timing/Duration: 1/2 Hour Severity: Mild Associated Systoms: Denies Symptoms Allergies and Home Medications Allergies Coded Allergies: Penicillins (Verified Allergy, Unknown, 01/11/19) vancomycin (Verified Allergy, Unknown, 01/11/19) Home Medications Famotidine 20 Mg Tablet, 20 MG PO BID Prescribed by: ZOEY RODRIGUEZ on 12/03/18 1143 Naproxen 500 Mg Tablet, 500 MG PO BID Prescribed by: CHANELLE BYNUM on 01/11/19 0254 Omeprazole 20 Mg Capsule.dr, 20 MG PO BID Prescribed by: SHRADDHA BUSTILLO on 09/28/1921 Ondansetron 4 Mg Tab.rapdis, 4 MG PO Q6H PRN for NAUSEA/VOMITING Prescribed by: SHRADDHA BUSTILLO on 09/28/19 002 Sucralfate 1 Gm Tablet, 1 GM PO QIDACHS Prescribed by: SHRADDHA BUSTILLO on 09/28/1921 Tramadol HCl 50 Mg Tablet, 50 MG PO Q4H PRN for PAIN-MODERATE Prescribed by: CHANELLE BYNUM on 01/11/19 0254 Patient Home Medication List Home Medication List Reviewed: Yes Review of Systems Review of Systems Constitutional: No no symptoms reported, No see HPI, No chills, No diaphoresis, No dizziness, No fever, No malaise, No weakness, No weight gain, No weight loss, No other EENTM: No see HPI, No no symptoms reported, No ear discharge, No hearing loss, No ear pain, No blurred vision, No double vision, No eye pain, No tearing, No vision loss, No dental problems, No hoarseness, No mouth pain, No mouth swelling, No epistaxis, No nose congestion, No nose pain, No throat pain, No throat swelling, No other Respiratory: No no symptoms reported, No see HPI, No cough, No dyspnea on exertion, No hemoptysis, No orthopnea, No phlegm, No short of breath, No stridor, No wheezing, No other Cardiovascular: No no symptoms reported, No see HPI, No chest pain, No edema, No Hx of Intervention, No palpitations, No syncope, No vascular heart diseas, No other Gastrointestinal: No RUQ, No LUQ, No RLQ, No LLQ, No no symptoms reported, No see HPI, No abdominal pain, No constipation, No diarrhea, No dysphagia, No hematemesis, No heartburn, No jaundice, No loss of appetite, No melena, No nausea, No vomiting, No other Genitourinary: No no symptoms reported; see HPI; No decreased output, No discharge, No dysuria, No frequency, No hematuria, No hesitancy, No incontinence, No nocturia, No pain, No other Musculoskeletal: No no symptoms reported, No see HPI, No back pain, No gout, No joint pain, No joint swelling, No muscle pain, No muscle stiffness, No muscle cramps, No muscle twitching, No muscle weakness, No neck pain, No other Skin: No no symptoms reported, No see HPI, No change in color, No change in hair/nails, No dryness, No hx of skin cancer, No lesions, No lumps, No pruritus, No rash, No other All Other Systems Reviewed Negative Unless Noted: Yes Past Rjhcnvh-Ygpega-Icvops Hx Patient Social History Alcohol Beverage of Choice: Beer Type Used: Cigarettes 2nd Hand Smoke Exposure: No Recent Foreign Travel: No Contact w/Someone Who Travel: No Recent Hopitalizations: No Past Medical History Surgeries: No Orthopedic Respiratory: No Cardiac: No Neurological: No Reproductive Disorders: No Genitourinary: No Gastrointestinal: Yes Ulcer, Irritable Bowel Musculoskeletal: No Fractures Endocrine: No HEENT: No Cancer: No Psychosocial: No Integumentary: No Physical Exam Vital Signs Capillary Refill : Height, Weight, BMI Height: 5'4.50" Weight: 145lbs. oz. 65.329194wm; 23.00 BMI Method:Stated General Appearance: No Apparent Distress, WD/WN Respiratory: Chest Non Tender, Lungs Clear, Normal Breath Sounds, No Accessory Muscle Use, No Respiratory Distress Cardiovascular: Regular Rate, Rhythm, No Edema, No Gallop, No JVD, No Murmur, Normal Peripheral Pulses Gastrointestinal: Normal Bowel Sounds, No Organomegaly, No Pulsatile Mass, Non Tender, Soft Genital/Rectal: Other (vaginal exam declined. The patient.) Back: Normal Inspection, No CVA Tenderness, No Vertebral Tenderness Neurologic/Psychiatric: Alert, Oriented x3, No Motor/Sensory Deficits, Normal Mood/Affect Progress/Results/Core Measures Suspected Sepsis SIRS Temperature: Pulse: Respiratory Rate: Blood Pressure / Mean: Results/Orders Vital Signs/I&O Capillary Refill : Progress Note : Time: 00:10 Progress Note Nurses present in the entire history and physical exam of this patient discuss at length with patient about options. Patient deferred vaginal exam. Patient states she is mild bilateral adnexal cramping. Consistent with possible round ligament pain. Patient is 17 weeks . heart tones 147 I did discuss at length with patient about limiting capabilities at [facility]. Did offer full medical screening exam to our capabilities which included IV and laboratory evaluation. I advised the patient that if she felt like she needed an ultrasound that we could make arrangements to transfer her to [place] or [facility] for further evaluation with facility with ultrasound or CONTROL SUPERVISOR capabilities. Patient declines. Patient also declines IV or laboratory evaluation. Stated she did not want be stuck with needles. I did further discuss the patient about options and offered urinalysis on the patient in again the patient declined any laboratory evaluation. Discussed at length options advised patient economic full evaluation on the patient concerning abdominal pain with given the time of 17 weeks most likely could be round ligament pain but could not rule out any's other significant cause. Patient states understanding and states she will follow up with Dr. harrington CONTROL SUPERVISOR in the morning. Patient also advised if symptoms felt to improve or worsen to return to the emergency department to make anxious be transferred needed for the patient to go directly to [facility] or [facility]. Patient states understanding we will give her information about round ligament pain. Patient should lay on her left side as needed for comfort. May use heating pad as needed. Round ligament pain is a common occurrence and . As continues round ligament pain will subside. May take Tylenol as needed for pain. Follow-up with CONTROL SUPERVISOR in 1-2 days as instructed if needed for further evaluation. I would encourage patient to return to the emergency department is symptoms felt to improve or worsen. Or may directly go to [facility] or [facility] for immediate evaluation by ultrasound or CONTROL SUPERVISOR. Departure Impression Primary Impression: Round ligament pain Disposition: HOME, SELF-CARE Condition: Stable Departure-Patient Inst. Decision time for Depature: 00:14 Referrals: FRANCISCO GODINEZ MD (PCP/Family) Primary Care Physician Patient Instructions: Round Ligament Pain Add. Discharge Instructions: Patient should lay on her left side as needed for comfort. May use heating pad as needed. Round ligament pain is a common occurrence and . As continues round ligament pain will subside. May take Tylenol as needed for pain. Follow-up with CONTROL SUPERVISOR in 1-2 days as instructed if needed for further evaluation. I would encourage patient to return to the emergency department is symptoms felt to improve or worsen. Or may directly go to [facility] or [facility] for immediate evaluation by ultrasound or CONTROL SUPERVISOR. GUILLERMO HARPER MD Apr 27, 2020 00:13
--- NOTE | 2020-04-27 00:17 | NUR ---
Patient is offered transfer to [place] for further evaluation of the abdominal cramping. Patient is also offered labs, IV, fluids and UA. Patient declined.
== END 2020-04-27 00:17 | disposition home or self-care (01) ==
LOC: EDUNIT# 23:50 → ER FS 23:52
DX: O26.892 Other specified pregnancy related conditions, second trimester (principal); R10.2 Pelvic and perineal pain; Z3A.17 17 weeks gestation of pregnancy; Z88.0 Allergy status to penicillin; Z88.1 Allergy status to other antibiotic agents
CPT/HCPCS: 99282

== ENCOUNTER 2021-07-09 13:39 | Emergency (ER) | payer MEDICAID | END 2021-07-09 14:03 | disposition left against medical advice (07) | LOC: EDUNIT# 13:39 → ER FS 13:40 | DX: U07.1 COVID-19 (principal) ==

== ENCOUNTER 2021-08-10 18:08 | Emergency (ER) | payer MEDICAID ==
[~2021-08-10] VITALS: Ht 165.1 cm; Wt 60.9 kg
--- OUTSIDE RECORDS SUMMARY | 2021-08-10 18:13 | XMS REPORT ---
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 Active confi rmed 07368665 Problem Counseling on other sexually transmitted diseases V65.45 Active confirmed 918758956 Problem Attention deficit disorder of childhood with hyperactivity 314.01 Active confirmed 395869690 Problem Abdominal pain, epigastric 789.06 Active confirmed 31399022 Problem Dysmenorrhea 625.3 Active confirmed 4838164 00 Problem Major depressive disorder, single episode, unspecified F32.9 Active confirmed 85233894 Problem Problems related to high-risk sexual behavior V69.2 Active confirmed 719441273 Problem Substance abuse in family V61.42 Active confirmed 092122593788871 Problem Family disruption due to chi ld in foster care or in care of non-parental family member V61.06 Active confirmed 231090301228199 Problem Depressive disorder, not elsewhere classified 311 Active confirmed 00080851 ALLERGIES Allergen (clinical drug ingredient) Drug/Non Drug Allergy do cumented on EMR Reaction Allergy Type Onset Date Status clindamycin Clindamycin HCl(ND Code:[address]-45) rash Drug A llergy Active penicillamine Penicillamine(ND Code:[address]-16) anaphylaxis Drug Allergy Active ENCOUNTERS from 1996 to 2021-07-15 Encounter Location Date Provider Diagnosis [id number] [address] [address] Feb, Ria Love Major depressive dis order, single episode, unspecified F32.9 ; Encounter for initial prescription of contraceptive pills Z30.011 and Tobacco abuse counseling Z71.6 IMMUNIZATIONS No Information SOCIAL HISTORY Tobacco Use: Social History Observation Description Date Details (start date - stop date) Current Smoker Sex Assigned At : Social History Observation Description Sex Assigned At Unknown Alcohol Question Answer Notes How often did you have a drink containing alcohol in the pas t year? Yes Points 2 Interpretation Negative How many drinks did you have on a typica l day when you were drinking in the past year? Monthly or less (1 point) How many drinks did you have on a typica l day when you were drinking in the past year? 1 or 2 (0 points) How often did you have six or more drinks on one occas citlali in the past year? Less than monthly (1 point) Smoking Status Question Answer Notes Are you a: current smoker Are you interested in quitting? Ready to quit How many cigarettes a day do you smoke? 5 or less How soon after you wake up do you smoke your first cigarette ? within 5 min How often do you smoking Cigarettes? every day REASON FOR REFERRAL No Information VITAL SIGNS Height 64.5 in Feb, Weight 137 lbs Feb, BMI 23.15 kg/m2 Feb, Heart Rate 62 /min Feb, Temperature 98.3 degrees Fahrenheit Feb, Blood pressure systolic 102 mm Hg Feb, Blood pressure diastolic 60 mm Hg Feb, MEDICATIONS Medication SIG (Take, Route, Frequency, Duration) Notes Start Da te End Date Status CeleXA 20 MG 1 tablet Orally Once a day for 30 day(s) 2017 Active Pantoprazole Sodium 20 MG 1 tablet Orally Once a day Active Zoloft 150 mg 1 tablet Orally Once a day Not-Taking Lo Loestrin Fe 1 MG-10 MCG / 10 MCG 1 tablet Orally Once a day f or 28 day(s) Feb, Active PROCEDURES No Information RESULTS Component Value Reference Range Urine Test (GM) Reviewed date:03/26/2018 11:14:32 Interpretation:Positive Performing Lab: Negative positive Positive COMPREHENSIVE METABOLIC PANEL Reviewed date:03/27/2018 10:09:47 Interpretation:Normal Performing Lab: GLUCOSE 87 65-99 UREA NITROGEN (BUN) 14 7-25 CREATININE 0.76 0.50-1.10 eGFR NON-AFR. CZECH 112 > OR = 60 eGFR 130 > OR = 60 BUN/CREATININE RATIO NOT APPLICABLE 6-22 SODIUM 140 135-146 POTASSIUM 3.7 3.5-5.3 CHLORIDE 104 98-110 CARBON DIOXIDE 27 20-32 CALCIUM 9.7 8.6-10.2 PROTEIN, TOTAL 7.3 6.1-8.1 ALBUMIN 4.6 3.6-5.1 GLOBULIN 2.7 1.9-3.7 ALBUMIN/GLOBULIN RATIO 1.7 1.0-2.5 BILIRUBIN, TOTAL 0.9 0.2-1.2 ALKALINE PHOSPHATASE 98 33-115 AST 17 10-30 ALT 26 6-29 CBC (H/H, RBC, INDICES, WBC, PLT) Reviewed date:03/27/2018 10:09:47 Interpretation:Normal Performing Lab: WHITE BLOOD CELL COUNT 9.9 3.8-10.8 RED BLOOD CELL COUNT 4.80 3.80-5.10 HEMOGLOBIN 13.0 11.7-15.5 HEMATOCRIT 40.9 35.0-45.0 MCV 85.2 80.0-100.0 MCH 27.1 27.0-33.0 MCHC 31.8 32.0-36.0 RDW 14.7 11.0-15.0 PLATELET COUNT 364 140-400 MPV 10.3 7.5-12.5 TSH W/REFLEX TO FT4 Reviewed date:03/27/2018 10:09:47 Interpretation:5.36 Performing Lab: T4, FREE 1.2 0.8-1.8 TSH W/REFLEX TO FT4 5.36 HCG, TOTAL, QN Reviewed date:03/27/2018 10:09:47 Interpretation:Normal Performing Lab: HCG, TOTAL, QN <2 REASON FOR VISIT control, friend takes Lo Loestrine fe and they talked about it and thinks she would like that, would like to talk about drepression //Shalonda MEDEIROS MEDICAL (GENERAL) HISTORY Type Description Date Medical History Depression Surgical History Left arm (shattered elbow) Hospitalization History Drug overdose (Xanax) x 3 days - For [facility] 2011 Goals Section No Information Health Concerns No Information MEDICAL EQUIPMENT No Information MENTAL STATUS No Information FUNCTIONAL STATUS No Information ASSESSMENTS Encounter Date Diagnosis Assessment Notes Treatment Notes Treatm ent Clinical Notes Feb, Major depressive disorder, s luz episode, unspecified (ICD-10 - F32.9) Will RX SSRI considering symptoms. Patient educated on this medication, proper use and side effects including increased suicidality. Notify office if side effects occur. Educated that it can take up to 4-6 weeks to feel full effects of medication. Encouraged patient to also pursue therapy in addition to medication as this is proven more effective than monotherapy. Patient provided with handout of counselors as well as [facility] Same Day Assessment information. F/u in 6-8 weeks to evaluate therapy and symptoms. Patient voiced understanding. Feb, Encounter for initial prescr iption of contraceptive pills (ICD-10 - Z30.011) In office urine test positive. Will draw serum test and call patient with results when available. No OCP until serum test is negative. Patient voiced understanding. Feb, Tobacco abuse counseling (ICD-10 - Z71.6) I had long talk with patient about the extreme risk caused by smoking. Given information to read and [employer] hotline information. Patient voiced understanding and would like to try Nicotine patches. RX sent PLAN OF TREATMENT Medication Medication Name Sig Start Date Stop Date Lo Loestrin Fe 1 MG-10 MCG / 10 MCG 1 tablet Orally Once a d ay for 28 day(s) Feb, CeleXA 20 MG 1 tablet Orally Once a day for 30 day(s) Feb, Treatment Notes Assessment Notes Clinical Notes Major depressive disorder, single episode, unspecified Will RX SSRI considering symptoms. Patient educated on this medication, proper use and side effects including increased suicidality. Notify office if side effects occur. Educated that it can take up to 4-6 weeks to feel full effects of medication. Encouraged patient to also pursue therapy in addition to medication as this is proven more effective than monotherapy. Patient provided with handout of counselors as well as [facility] Same Day Assessment information. F/u in 6-8 weeks to evaluate therapy and symptoms. Patient voiced understanding. Encounter for initial prescription of contraceptive pi lls In office urine test positive.Will draw serum test and call patient with results when available.No OCP until serum test is negative.Patient voiced understanding. Tobacco abuse counseling I had long talk with patient about the extreme risk caused by smoking. Given information to read and [employer] hotline information. Patient voiced understanding and would like to try Nicotine patches. RX sent Pending Tests Test Name Order Date HCG, TOTAL, QL 2018-03-26 Next Appt Details prn Reason: Insurance Providers Payer Name Payer Address Payer Phone Insured Name Patient Relati onship to Insured Coverage Start Date Coverage End Date Subscriber Number Group Nu mber D [employer] [place] [address] [address] [facility] [id number] Shayla Rosario self [id number] [facility] [address] [facility] [address] Shayla Rosario self 2012 [id number] title XIX
--- OUTSIDE RECORDS SUMMARY | 2021-08-10 18:13 | XMS REPORT ---
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 Active confi rmed 80891753 Problem Counseling on other sexually transmitted diseases V65.45 Active confirmed 223941309 Problem Attention deficit disorder of childhood with hyperactivity 314.01 Active confirmed 512001415 Problem Abdominal pain, epigastric 789.06 Active confirmed 26061883 Problem Dysmenorrhea 625.3 Active confirmed 5659260 00 Problem Major depressive disorder, single episode, unspecified F32.9 Active confirmed 74551067 Problem Problems related to high-risk sexual behavior V69.2 Active confirmed 651467039 Problem Substance abuse in family V61.42 Active confirmed 313108134735261 Problem Family disruption due to chi ld in foster care or in care of non-parental family member V61.06 Active confirmed 780924558708043 Problem Depressive disorder, not elsewhere classified 311 Active confirmed 91440566 ALLERGIES Allergen (clinical drug ingredient) Drug/Non Drug Allergy do cumented on EMR Reaction Allergy Type Onset Date Status clindamycin Clindamycin HCl(ND Code:[address]-44) rash Drug A llergy Active penicillamine Penicillamine(ND Code:[address]-23) anaphylaxis Drug Allergy Active ENCOUNTERS from 1996 to 2021-07-15 Encounter Location Date Provider Diagnosis Nasreen Prado [facility] [id number] [place] [id number] Feb, Ria Love IMMUNIZATIONS No Information SOCIAL HISTORY Tobacco Use: [...] REASON FOR REFERRAL No Information VITAL SIGNS No information MEDICATIONS Medication SIG (Take, Route, Frequency, Duration) [...] day(s) Feb, Active PROCEDURES No Information RESULTS No Results REASON FOR VISIT pt calling for lab results/lvm^ MEDICAL (GENERAL) HISTORY Type Description Date Medical History Depression Surgical History Left arm (shattered elbow) Hospitalization History Drug overdose (Xanax) x 3 days - For [place], [place] 2011 Goals Section No Information Health Concerns No Information MEDICAL EQUIPMENT No Information MENTAL STATUS No Information FUNCTIONAL STATUS No Information ASSESSMENTS No Information PLAN OF TREATMENT Medication Medication Name Sig Start Date Stop Date Lo Loestrin Fe 1 MG-10 MCG / 10 MCG 1 tablet Orally Once a d ay for 28 day(s) Feb, CeleXA 20 MG 1 tablet Orally Once a day for 30 day(s) Feb, Insurance Providers Payer Name Payer Address Payer Phone Insured Name Patient Relati onship to Insured Coverage Start Date Coverage End Date Subscriber Number Nu prakashwendy [facility] [place] [address] [address] [facility] [address] Shayla Rosario self [id number] [facility] [address] [facility] [address] Shayla Rosario self 2012 [id number] title XIX
--- OUTSIDE RECORDS SUMMARY | 2021-08-10 18:13 | XMS REPORT ---
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 Active confi rmed [id number] Problem Counseling on other sexually transmitted diseases V65.45 Active confirmed 353416525 Problem Attention deficit disorder of childhood with hyperactivity 314.01 Active confirmed 975737409 Problem Abdominal pain, epigastric 789.06 Active confirmed 62596004 Problem Dysmenorrhea 625.3 Active confirmed 3083465 00 Problem Major depressive disorder, single episode, unspecified F32.9 Active confirmed 94397701 Problem Problems related to high-risk sexual behavior V69.2 Active confirmed 035641956 Problem Substance abuse in family V61.42 Active confirmed 390132270194127 Problem Family disruption due to chi ld in foster care or in care of non-parental family member V61.06 Active confirmed 358765145851598 Problem Depressive disorder, not elsewhere classified 311 Active confirmed 72015704 ALLERGIES Allergen (clinical drug ingredient) Drug/Non Drug Allergy do cumented on EMR Reaction Allergy Type Onset Date Status clindamycin Clindamycin HCl(ND Code:[address]-22) rash Drug A llergy Active penicillamine Penicillamine(ND Code:[address]-43) anaphylaxis Drug Allergy Active ENCOUNTERS from 1996 to 2021-07-15 Encounter Location Date Provider Diagnosis Nasreen Prado [facility] [id number] [id number] Feb, Ria Love IMMUNIZATIONS No Information SOCIAL [...] RESULTS No Results REASON FOR VISIT pt ask if PCP send BC?/lvm^ MEDICAL (GENERAL) HISTORY Type Description Date Medical History Depression Surgical History Left arm (shattered elbow) Hospitalization History Drug overdose (Xanax) x 3 days - For [place], [place] 2011 Goals Section No Information Health [...] Coverage End Date Subscriber Number Group Nu jacob [facility] [facility] [place] [address] [address] [facility] [address] Shayla Rosario self [id number] [facility] [address] [facility] [address] [phone] Shayla Rosario self 2012 [id number] title XIX
[2021-08-10 18:33] LABS: CLARITY,URINE SL CLOUDY; COLOR,URINE YELLOW; GLUCOSE, URINE (UA) NEGATIVE (NEGATIVE); KETONES,URINE TRACE (NEGATIVE); LEUKOCYTE ESTERASE ,URINE NEGATIVE (NEGATIVE); NITRITE,URINE NEGATIVE (NEGATIVE); PROTEIN,URINE NEGATIVE (NEGATIVE)
[2021-08-10 18:49] LABS: BACTERIA,URINE TRACE /HPF; BILIRUBIN,URINE 1+ (NEGATIVE)
[2021-08-10] MEDS ORDERED: ONDANSETRON 4 MG (ZOFRAN) ORAL DISSOLVE TAB PO STA (19:03)
--- NOTE | 2021-08-10 19:03 | ED General ---
General Chief Complaint: Fever-Adult/Adol Stated Complaint: BODY ACHES,CHILLS,FEVER,RIB PAIN,NAUSEA Nursing Triage Note: Patient reports she began having sore throat, chills, body aches, lower back pain, and a headache yesterday. She denies any sick contacts, states she has had urinary tract infections with pyelonephritis in the past. Source of Information: Patient Exam Limitations: No Limitations History of Present Illness Date Seen by Provider: Aug 10, 2021 Time Seen by Provider: 18:45 Initial Comments Patient to the ER by private conveyance with chief complaint of the second day of fever, body aches malaise sweats and low back pain. She says she felt the same way a few months ago when she had pyelonephritis. She was started on a antifungal for yeast infection last week by her PCP at [facility]. She is not having any dysuria hematuria. No history of kidney stones. Her back pain is bilateral achy. She says has been laying in bed sleeping all day and has not taken any antipyretics or pain medicines. No other significant medical or surgical history. She has a sore throat, runny nose, nasal congestion, occasional dry nonproductive cough. She had a negative COVID swab at home yesterday. Allergies and Home Medications Allergies Coded Allergies: Penicillins (Verified Allergy, Unknown, 01/11/19) vancomycin (Verified Allergy, Unknown, 01/11/19) Patient Home Medication List Home Medication List Reviewed: Yes Duloxetine HCl (Duloxetine HCl) Unknown Strength Capsule.dr, Unknown Dose, (Reported) Entered as Reported by: RYNE FITZGERALD on 01/11/19226 Famotidine (Pepcid) 20 Mg Tablet, 20 MG PO BID Prescribed by: ZOEY RODRIGUEZ on 12/03/18 1143 Naproxen (Naproxen) 500 Mg Tablet, 500 MG PO BID Prescribed by: CHANELLE BYNUM on 01/11/19 0254 Omeprazole (Omeprazole) 20 Mg Capsule.dr, 20 MG PO BID Prescribed by: SHRADDHA BUSTILLO on 09/28/1921 Ondansetron (Ondansetron Odt) 4 Mg Tab.rapdis, 4 MG PO Q6H PRN for NAUSEA/VOMITING Prescribed by: SHRADDHA BUSTILLO on 09/28/1921 Ondansetron (Ondansetron Odt) 4 Mg Tab.rapdis, 4 MG PO Q6H PRN for NAUSEA/V OMITING Prescribed by: SHRADDHA BUSTILLO on 08/10/212007 Sucralfate (Carafate) 1 Gm Tablet, 1 GM PO QIDACHS Prescribed by: SHRADDHA BUSTILLO on 09/28/19 0022 Tramadol HCl (Ultram) 50 Mg Tablet, 50 MG PO Q4H PRN for PAIN-MODERATE Prescribed by: CHANELLE BYNUM on 01/11/19 0254 Trazodone HCl (Trazodone HCl) Unknown Strength Tablet, Unknown Dose, (Reported) Entered as Reported by: RYNE FITZGERALD on 01/11/19226 Review of Systems Review of Systems Constitutional: chills, fever, malaise EENTM: nose congestion; No ear discharge, No ear pain Respiratory: cough; No phlegm, No short of breath Cardiovascular: No chest pain Gastrointestinal: No abdominal pain; nausea; No vomiting Genitourinary: see HPI; No discharge, No dysuria, No frequency, No hematuria Musculoskeletal: see HPI, back pain; No joint pain All Other Systems Reviewed Negative Unless Noted: Yes Past Arswhtf-Tvgscs-Ybvixn Hx Patient Social History Tobacco Use?: No Use of E-Cig and/or Vaping dev: Yes Substance use?: No Alcohol Use?: No Pt feels they are or have been: No Past Medical History Surgeries: No Orthopedic Respiratory: No Cardiac: No Neurological: No Last Menstrual Period: Jul 07, 2021 Reproductive Disorders: No Genitourinary: No Gastrointestinal: Yes Ulcer, Irritable Bowel Musculoskeletal: No Fractures Endocrine: No HEENT: No Cancer: No Psychosocial: No Integumentary: No Physical Exam Vital Signs Vital Signs - First Documented 08/10/21 18:16 Temp 36.7 Pulse 113 Resp 18 B/P (MAP) 94/61 (72) Pulse Ox 100 O2 Delivery Room Air Capillary Refill : Less Than 3 Seconds Height, Weight, BMI Height: 5'4.50" Weight: 145lbs. oz. 65.943034fi; 22.00 BMI Method:Stated General Appearance: Anxious, Mild Distress Eyes: Bilateral Eye Normal Inspection, Bilateral Eye PERRL, Bilateral Eye EOMI HEENT: PERRL/EOMI, TMs Normal; No Tonsillar Exudate; Tonsillar Enlargement, Other (Nasal congestion) Neck: Full Range of Motion, Normal Inspection, Non Tender Respiratory: No Accessory Muscle Use, No Respiratory Distress Cardiovascular: Regular Rate, Rhythm, No Edema Gastrointestinal: Non Tender, Soft Extremity: Normal Capillary Refill, Normal Inspection, No Pedal Edema Neurologic/Psychiatric: Alert, Oriented x3 Skin: Normal Color, Warm/Dry Progress/Results/Core Measures Suspected Sepsis SIRS Temperature: Pulse: 113 Respiratory Rate: 18 Blood Pressure 94 /61 Mean: 72 Results/Orders Lab Results Laboratory Tests Test 08/10/21 18:20 08/10/21 18:23 08/10/21 18:25 Range/Units Influenza Type A Antigen NEGATIVE NEGATIVE Influenza Type B Antigen NEGATIVE NEGATIVE Urine Color YELLOW Urine Clarity SL CLOUDY Urine pH 7.0 5-9 Urine Specific [place] 1.015 L 1.016-1.022 Urine Protein NEGATIVE NEGATIVE Urine Glucose (UA) NEGATIVE NEGATIVE Urine Ketones TRACE H NEGATIVE Urine Nitrite NEGATIVE NEGATIVE Urine Bilirubin 1+ H NEGATIVE Urine Urobilinogen 0.2 < = 1.0 MG/DL Urine Leukocyte Esterase NEGATIVE NEGATIVE Urine RBC (Auto) 1+ H NEGATIVE Urine RBC NONE /HPF Urine WBC 2-5 /HPF Urine Squamous Epithelial Cells 5-10 /HPF Urine Crystals NONE /LPF Urine Bacteria TRACE /HPF Urine Casts NONE /LPF Urine Mucus SMALL H /LPF Urine Culture Indicated NO Group A Streptococcus Screen NEGATIVE NEGATIVE My Orders Orders - SHRADDHA BUSTILLO Ondansetron Oral Dissolve Tab (Zofran (08/10/21 19:03) Acetaminophen Tablet (Tylenol Tablet) (08/10/21 19:15) Ketorolac Injection (Toradol Injection) (08/10/21 20:15) Medications Given in ED Current Medications Medications Dose Ordered Sig/Aileen Route Start Time Stop Time Status Last Admin Dose Admin Acetaminophen 1,000 mg ONCE ONCE PO 08/10/21 19:15 08/10/21 19:16 DC 08/10/21 19:09 1,000 MG Ketorolac Tromethamine 60 mg ONCE ONCE IM 08/10/21 20:15 08/10/21 20:16 DC 08/10/21 20:09 60 MG Vital Signs/I&O 08/10/21 08/10/21 08/10/21 18:16 19:30 20:22 Temp 36.7 Pulse 113 105 79 Resp 18 15 15 B/P (MAP) 94/61 (72) 106/55 101/58 Pulse Ox 100 98 99 O2 Delivery Room Air Room Air Capillary Refill : Less Than 3 Seconds Blood Pressure Mean: 72 Progress Note #1: Time: 19:03 Progress Note We will start with a flu, COVID, rapid strep and urinalysis. If this looks like a bacterial infection then we will capture a septic work-up. Tylenol and Zofran Progress Note #2: Time: 20:04 Progress Note Body aches have improved but not completely gone away after the Tylenol. Her Zofran took her nausea completely away. She would like us to send some more that to the pharmacy. We gave her the opportunity for a Toradol shot which she accepted. We discussed doing further labs versus going home and managing symptoms at home and she would prefer the latter. Return precautions were discussed. Departure Impression Primary Impression: Acute viral syndrome Disposition: HOME, SELF-CARE Condition: Stable Departure-Patient Inst. Decision time for Depature: 20:05 Referrals: NIMCO OBRIEN APRN (PCP/Family) Primary Care Physician Patient Instructions: Fever, Adult (DC) Add. Discharge Instructions: Drink lots of fluids. Tylenol 1000 mg every 8 hours as necessary for body aches, pain headache or fevers. Ibuprofen 800 mg every 8 hours as necessary for body aches, pain, headaches or fever. Zofran/ondansetron 1 tablet every 6 hours under the tongue as necessary for nausea and/or vomiting. Expect a phone call in the next couple days with the results of your COVID-19 swab. If the swab is negative you may return to work as soon as you are 24 hours sym ptom-free. If the swab is positive then discuss with them scheduling monoclonal antibodies, Paxlovid and other treatments. Humidifiers, vapor rubs such as Vicks or Mentholatum and bjay-vjp-nhythcn cough and cold medicines as necessary for symptoms. Return to the ER for intractable vomiting, oxygen saturations that stay below 90% while at rest or other worrisome symptoms. All discharge instructions reviewed with patient and/or family. Voiced understanding. Scripts Ondansetron (Ondansetron Odt) 4 Mg Tab.rapdis 4 MG PO Q6H PRN for NAUSEA/VOMITING, #8 TAB 0 Refills Prov: SHRADDHA BUSTILLO 08/10/21 Work/School Note: Work Release Form Date Seen in the Emergency Department: Aug 10, 2021 Return to Work: Aug 15, 2021 Restrictions: Return-No Fever (24hrs) SHRADDHA BUSTILLO Aug 10, 2021 19:03
[2021-08-10] MEDS ORDERED: ACETAMINOPHEN 500 MG TAB (TYLENOL) PO ONE (19:15)
[2021-08-10] MEDS ORDERED: ONDA4TAB11 PO (20:08)
[2021-08-10] MEDS ORDERED: KETOROLAC 60 MG/2 ML VIAL IM ONE (20:15)
[2021-08-10 20:22] VITALS: BP 101/58
== END 2021-08-10 20:22 | disposition home or self-care (01) ==
LOC: EDUNIT# 18:08 → ER FS 18:10
DX: B34.9 Viral infection, unspecified (principal); Z20.822 Contact with and (suspected) exposure to COVID-19
CPT/HCPCS: 81000; 84703; 87430; 87635; 87804; 99284

== ENCOUNTER 2021-12-07 09:51 | Emergency (ER) | payer MEDICAID ==
[~2021-12-07] VITALS: Ht 165.1 cm; Wt 56.7 kg
[~2021-12-07 09:51] MED LIST changes: +OMEP20TA56 PO; -OMEP20TA7 PO
[2021-12-07] MEDS ORDERED: ONDANSETRON 4 MG (ZOFRAN) ORAL DISSOLVE TAB PO STA (10:15)
[2021-12-07] MEDS ORDERED: KETOROLAC 60 MG/2 ML VIAL IM ONE (10:15)
--- NOTE | 2021-12-07 10:21 | ED Cough/URI ---
General Chief Complaint: COVID19 Suspect/Confirmed Stated Complaint: SOB; FEVER; COVID+ Nursing Triage Note: PT AMBULATE TO ROOM FS05 WITH C/O FEVER, N/V, CHILLS, AND BODY ACHES. PT REPORTS TESTING POSITIVE FOR COVID WITH A HOME TEST. PT REPORTS TAKING COLD AND FLU MEDS FOR SYMPTOMS. Source: patient Exam Limitations: no limitations History of Present Illness Date Seen by Provider: December 07, 2021 Time Seen by Provider: 10:05 Initial Comments Patient to the ER by private conveyance from home with chief complaint she is had 2 days of body aches chills nausea and poor appetite with cough. She did vomit up a little bit of mucus today. She has been using cough and cold medicines [id number]-[id number] without sufficient relief of symptoms. She did a home test for COVID-19 today and it was positive. She has not had any vac cinations for COVID-19. She has no sick contacts at home. 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 She does not breast-feed. She is not on control but she got off her period yesterday. Allergies and Home Medications Allergies Coded Allergies: Penicillins (Verified Allergy, Unknown, 01/11/19) vancomycin (Verified Allergy, Unknown, 01/11/19) Patient Home Medication List Home Medication List Reviewed: Yes Duloxetine HCl (Duloxetine HCl) Unknown Strength Capsule., Unknown Dose, (Reported) Entered as Reported by: RYNE FITZGERALD on 01/11/19 0227 Famotidine (Pepcid) 20 Mg Tablet, 20 MG PO BID Prescribed by: ZOEY RODRIGUEZ on 12/03/18 1143 Naproxen (Naproxen) 500 Mg Tablet, 500 MG PO BID Prescribed by: CHANELLE BYNUM on 01/11/19 0254 Omeprazole (Omeprazole) 20 Mg Capsule., 20 MG PO BID Prescribed by: SHRADDHA BUSTILLO on 09/28/19 002 Ondansetron (Ondansetron Odt) 4 Mg Tab.rapdis, 4 MG PO Q6H PRN for NAUSEA/VOMITING Prescribed by: SHRADDHA BUSTILLO on 09/28/19 002 Ondansetron (Ondansetron Odt) 4 Mg Tab.rapdis, 4 MG PO Q6H PRN for NAUSEA/VOMITING Prescribed by: SHRADDHA BUSTILLO on 08/10/212007 Sucralfate (Carafate) 1 Gm Tablet, 1 GM PO QIDACHS Prescribed by: SHRADDHA BUSTILLO on 09/28/1921 Tramadol HCl (Ultram) 50 Mg Tablet, 50 MG PO Q4H PRN for PAIN-MODERATE Prescribed by: CHANELLE BYNUM on 01/11/19 0254 Trazodone HCl (Trazodone HCl) Unknown Strength Tablet, Unknown Dose, (Reported) Entered as Reported by: RYNE FITZGERALD on 01/11/19 0227 Review of Systems Review of Systems Constitutional: chills, fever, malaise EENTM: No ear discharge, No ear pain Respiratory: cough; No phlegm, No short of breath, No wheezing Cardiovascular: No edema, No palpitations Gastrointestinal: No abdominal pain, No constipation, No diarrhea; nausea, vomiting Genitourinary: No discharge, No dysuria Musculoskeletal: see HPI; No back pain, No joint pain; muscle pain All Other Systems Reviewed Negative Unless Noted: Yes Past Nabeyjv-Qncmgf-Pvkijp Hx Patient Social History Tobacco Use?: No Smoking Status: Never a Smoker Smokeless Tobacco Frequency: Never a User Use of E-Cig and/or Vaping dev: Yes E-Cig or Vaping type used: Nicotine Use of E-Cig and/or Vaping Momo: Current Everyday User Substance use?: No Alcohol Use?: Yes Alcohol Frequency: Once in a while Pt feels they are or have been: No Past Medical History Surgeries: No Orthopedic Respiratory: No Cardiac: No Neurological: No Reproductive Disorders: No Genitourinary: No Gastrointestinal: Yes Ulcer, Irritable Bowel Musculoskeletal: No Fractures Endocrine: No HEENT: No Cancer: No Psychosocial: No Integumentary: No Physical Exam Vital Signs - First Documented Capillary Refill : Less Than 3 Seconds Height: 5'4.50" Weight: 145lbs. oz. 65.689714ce; 20.00 BMI Method:Stated General Appearance: WD/WN, mild distress Eyes: Bilateral Eye Normal Inspection (Patient has traumatic ecchymoses that appear old more over the left eye than the right bilaterally.), Bilateral Eye PERRL, Bilateral Eye EOMI HEENT: PERRL/EOMI, normal ENT inspection, TMs normal, pharynx normal Neck: full range of motion, supple, normal inspection Respiratory: lungs clear, normal breath sounds, no respiratory distress, no accessory muscle use Cardiovascular: normal peripheral pulses, regular rate, rhythm Extremities: normal inspection, normal capillary refill Neurologic/Psychiatric: alert, normal mood/affect Skin: normal color, warm/dry Progress/Results/Core Measures Suspected Sepsis SIRS Temperature: Pulse: 98 Respiratory Rate: 17 Blood Pressure 114 /71 Mean: 85 Results/Orders My Orders Orders - SHRADDHA BUSTILLO Ketorolac Injection (Toradol Injection) (12/07/21 10:15) Ondansetron Oral Dissolve Tab (Zofran (12/07/21 10:15) Vital Signs/I&O 12/07/21 12/07/21 10:00 10:00 Temp 38.7 Pulse 98 Resp 17 B/P (MAP) 114/71 (85) O2 Delivery Room Air Room Air Capillary Refill : Less Than 3 Seconds Blood Pressure Mean: 85 Progress Note : Time: 10:18 Progress Note Patient did not want to go into her periorbital ecchymoses stating that she feels safe at home. Plan to give her some Toradol and Zofran to treat her symptoms. We will put her on Paxlovid. She has otherwise aseptic vital signs. Tessalon Perles. Return precautions discussed. Patient is happy with this plan. Departure Impression Primary Impression: COVID-19 Disposition: 01 HOME, SELF-CARE Condition: Stable Departure-Patient Inst. Decision time for Depature: 10:20 Referrals: NIMCO OBRIEN APRN (PCP) Primary Care Physician [facility]/STEFANIE (Family) Primary Care Physician Patient Instructions: COVID-19 (DC), Nirmatrelvir and Ritonavir Add. Discharge Instructions: Drink lots of fluids. If you are having nausea then every 6 hours you can take 1 tablet of ondansetron under the tongue and allow to dissolve and absorb. If you are still having nausea or vomiting half an hour later then take a second tablet. If you are having a cough you can use humidifiers, vapor rub such as Vicks or Mentholatum and Tessalon Perles 1 capsule every 6 hours as needed. If you experience muscle aches, body aches, fever or chills then use Tylenol and an NSAID such as Motrin, naproxen or Aleve. Tylenol 1000 mg every 8 hours as needed. Aleve 2 tablets every 12 hours as needed. Paxlovid 1 tablet twice a day for 5 days. Return to the ER promptly for intractable symptoms, or shortness of air resultin g in an oxygen saturation consistently below 90% while at rest. Wash your hands and wear a mask when you are around other people. Use surface sanitizers such as Lysol around the house to keep your family from catching this. All discharge instructions reviewed with patient and/or family. Voiced understanding. Scripts Benzonatate (TESSALON PERLES) 100 Mg Capsule 100 MG PO Q6H PRN for COUGH, #20 CAP 0 Refills Prov: SHRADDHA BUSTILLO 12/07/21 Ondansetron (Ondansetron Odt) 4 Mg Tab.rapdis 4-8 MG PO Q6H PRN for NAUSEA/VOMITING, #15 TAB 0 Refills Prov: SHRADDHA BUSTILLO 12/07/21 Nirmatrelvir/Ritonavir (Paxlovid Co-Pack (Eua)) 150 Mg X 2-100 Mg Tablet 1 EACH PO UD for 5 Days, #1 EACH 0 Refills Prov: SHRADDHA BUSTILLO 12/07/21 Work/School Note: Family Work Note Patient Received Medical Care In the Emergency Department On: December 07, 2021 Patient Will Be Able to Return to Work/School On: December 07, 2021 Patient Restrictions: None SHRADDHA BUSTILLO December 07, 2021 10:21
[2021-12-07] MEDS ORDERED: ONDA4TAB11 PO (10:24)
[2021-12-07] MEDS ORDERED: NIRM1TAB PO (10:24)
[2021-12-07] MEDS ORDERED: BENZ100C18 PO (10:24)
[2021-12-07 10:33] VITALS: BP 117/68
== END 2021-12-07 10:33 | disposition home or self-care (01) ==
LOC: EDUNIT# 09:51 → ER FS 09:55
DX: U07.1 COVID-19 (principal); F17.290 Nicotine dependence, other tobacco product, uncomplicated; Z73.0 Burn-out
CPT/HCPCS: 99284

== ENCOUNTER → 2022-09-12 | Outpatient (CLI) | payer MEDICAID ==
[~2022-09-12] MED LIST changes: +BENZ100C18 PO; +NIRM1TAB PO; +PANT40TA52 PO; +SUCR1TAB PO
== END ==
LOC: LAB 17:49
PROVIDERS: ATTEND Family Medicine
DX: Z01.419 Encounter for gynecological examination (general) (routine) without abnormal findings (principal); N89.8 Other specified noninflammatory disorders of vagina; R30.0 Dysuria
CPT/HCPCS: 87210

== ENCOUNTER 2022-09-15 11:46 | Emergency (ER) | payer MEDICAID ==
[~2022-09-15] VITALS: Ht 160 cm; Wt 56.0 kg
[~2022-09-15 11:46] MED LIST changes: -PANT40TA52 PO; -SUCR1TAB PO
[2022-09-15 11:49] VITALS: BP 112/62
[2022-09-15] MEDS ORDERED: PANTOPRAZOLE 40 MG (PROTONIX) VIAL IV STA (11:59)
[2022-09-15] MEDS ORDERED: KETOROLAC 15 MG/ML VIAL IVP STA (11:59)
[2022-09-15] MEDS ORDERED: NS IV 1000 ML 1,000 ML IV STA (11:59)
[2022-09-15] MEDS ORDERED: ONDANSETRON 4 MG/2 ML (SDV) Z0FRAN IVP STA (11:59)
--- NOTE | 2022-09-15 11:59 | ED Abdominal Pain ---
General Chief Complaint: Abdominal/GI Problems Stated Complaint: EPIGASTRIC PAIN Source of Information: Patient History of Present Illness Date Seen by Provider: Sep 15, 2022 Time Seen by Provider: 11:49 Initial Comments 26-year-old female presenting with complaints of epigastric and right upper quadrant abdominal pain. This has been going on for over a week and is worsened when she eats. She has seen her primary care provider Dr. Chandler's office and they ordered ultrasound but patient states that is not scheduled until next week. She had increased pain this morning and had not eaten since last night. She states that she felt like she could not take it anymore so she came to the emergency department. She had worse pain yesterday after eating greasy food but did not seek medical care then. She denies having fever, chills, vomiting, diarrhea, constipation, pain with urination. She does have nausea and sharp abdominal pains. She took some ibuprofen earlier this morning for pain after getting out but has not had anything since then. Timing/Duration: 1 Week Severity/Quality: Severe, Sharp Location: RUQ, Epigastric Radiation: Other (Diffuse abdominal pain) Activities at Onset: None Modifying Factors: Worsens With Eating Associated Symptoms: No Back Pain, No Chest Pain, No Diaphoresis, No Fever/Chills, No Fatigue, No Headache, No Heartburn; Nausea/Vomiting (Nausea but no vomiting); No Rash, No Shortness of Air, No Swelling/Mass in Abdomen, No Syncope, No Weakness Allergies and Home Medications Allergies Coded Allergies: Penicillins (Verified Allergy, Unknown, 01/11/19) vancomycin (Verified Allergy, Unknown, 01/11/19) Patient Home Medication List Home Medication List Reviewed: Yes Benzonatate (Tessalon Perles) 100 Mg Capsule, 100 MG PO Q6H PRN for COUGH Prescribed by: SHRADDHA BUSTILLO on 12/07/21 1024 Duloxetine HCl (Duloxetine HCl) Unknown Strength Capsule., Unknown Dose, (Reported) Entered as Reported by: RYNE FITZGERALD on 01/11/197 Famotidine (Pepcid) 20 Mg Tablet, 20 MG PO BID Prescribed by: ZOEY RODRIGUEZ on 12/03/18 1143 Naproxen (Naproxen) 500 Mg Tablet, 500 MG PO BID Prescribed by: CHANELLE BYNUM on 01/11/19253 Nirmatrelvir/Ritonavir (Paxlovid Co-Pack (Eua)) 150 Mg X 2-100 Mg Tablet, 1 EACH PO UD Prescribed by: SHRADDHA BUSTILLO on 12/07/211023 Omeprazole (Omeprazole) 20 Mg Capsule.dr, 20 MG PO BID Prescribed by: SHRADDHA BUSTILLO on 09/28/1921 Ondansetron (Ondansetron Odt) 4 Mg Tab.rapdis, 4 MG PO Q6H PRN for NAUSEA/VOMITING Prescribed by: SHRADDHA BUSTILLO on 09/28/1921 Ondansetron (Ondansetron Odt) 4 Mg Tab.rapdis, 4 MG PO Q6H PRN for NAUSEA/VOMITING Prescribed by: SHRADDHA BUSTILLO on 08/10/212007 Ondansetron (Ondansetron Odt) 4 Mg Tab.rapdis, 4-8 MG PO Q6H PRN for NAUSEA/VOMITING Prescribed by: SHRADDHA BUSTILLO on 12/07/211023 Ondansetron (Ondansetron Odt) 4 Mg Tab.rapdis, 4 MG PO Q6H PRN for NA USEA/VOMITING Prescribed by: STEFANY CAMARENA on 09/15/22 132 Pantoprazole Sodium (Pantoprazole Sodium) 40 Mg Tablet.dr, 40 MG PO DAILY Prescribed by: STEFANY CAMARENA on 09/15/22 1321 Sucralfate (Carafate) 1 Gm Tablet, 1 GM PO QIDACHS Prescribed by: SHRADDHA BUSTILLO on 09/28/1921 Sucralfate (Sucralfate) 1 Gram Tablet, 1 GM PO ACHS Prescribed by: STEFANY CAMARENA on 09/15/22 132 Tramadol HCl (Ultram) 50 Mg Tablet, 50 MG PO Q4H PRN for PAIN-MODERATE Prescribed by: CHANELLE BYNUM on 01/11/19253 Trazodone HCl (Trazodone HCl) Unknown Strength Tablet, Unknown Dose, (Reported) Entered as Reported by: RYNE FITZGERALD on 01/11/19226 Review of Systems Review of Systems Constitutional: No chills, No fever EENTM: No Symptoms Reported Respiratory: No Symptoms Reported Cardiovascular: No Symptoms Reported Gastrointestinal: See HPI Genitourinary: Denies Frequency, Denies Pain Musculoskeletal: no symptoms reported Skin: No rash Psychiatric/Neurological: Anxiety Endocrine: No Symptoms Reported Past Mkxpvni-Wzjdbe-Xmccyx Hx Patient Social History Tobacco Use?: No Use of E-Cig and/or Vaping dev: Yes E-Cig or Vaping type used: Nicotine Use of E-Cig and/or Vaping Momo: Current Everyday User Substance use?: No Alcohol Use?: Yes Alcohol Frequency: Rarely Past Medical History Surgeries: No Orthopedic Respiratory: No Cardiac: No Neurological: No Reproductive Disorders: No Genitourinary: No Gastrointestinal: Yes Ulcer, Irritable Bowel Musculoskeletal: No Fractures Endocrine: No HEENT: No Cancer: No Psychosocial: No Integumentary: No Physical Exam Vital Signs Vital Signs - First Documented 09/15/22 11:49 Temp 36.7 Pulse 89 Resp 16 B/P (MAP) 112/62 (79) Pulse Ox 100 O2 Delivery Room Air Capillary Refill : Height/Weight/BMI Height: 5'4.50" Weight: 145lbs. oz. 65.156003xz; 20.00 BMI Method:Stated General Appearance: WD/WN, moderate distress, thin HEENT: PERRL/EOMI, normal ENT inspection, pharynx normal Neck: non-tender, full range of motion, supple, normal inspection Respiratory: chest non-tender, lungs clear, normal breath sounds, no respiratory distress, no accessory muscle use Cardiovascular: normal peripheral pulses, regular rate, rhythm Gastrointestinal: normal bowel sounds, soft, no pulsatile mass; No distended; guarding, tenderness (epigastric and RUQ most tender with palpation but complains of pain with palpation anywhere on her abdomen) Rectal: deferred Extremities: normal range of motion, non-tender, normal capillary refill Neurologic/Psychiatric: alert, oriented x 3 Skin: normal color, warm/dry Progress/Results/Core Measures Results/Orders Lab Results Laboratory Tests Test 09/15/22 11:49 09/15/22 12:05 Range/Units Urine Color YELLOW Urine Clarity CLEAR Urine pH 6.0 5-9 Urine Specific [place] >=1.030 1.016-1.022 Urine Protein NEGATIVE NEGATIVE Urine Glucose (UA) TRACE H NEGATIVE Urine Ketones NEGATIVE NEGATIVE Urine Nitrite NEGATIVE NEGATIVE Urine Bilirubin NEGATIVE NEGATIVE Urine Urobilinogen 0.2 < = 1.0 MG/DL Urine Leukocyte Esterase NEGATIVE NEGATIVE Urine RBC (Auto) NEGATIVE NEGATIVE Urine RBC NONE /HPF Urine WBC RARE /HPF Urine Squamous Epithelial Cells 2-5 /HPF Urine Crystals PRESENT H /LPF Urine Amorphous Sediment FEW ALDAIR URATES H /LPF Urine Bacteria NEGATIVE /HPF Urine Casts NONE /LPF Urine Mucus MODERATE H /LPF Urine Culture Indicated NO White Blood Count 9.4 4.3-11.0 10^3/uL Red Blood Count 4.29 3.80-5.11 10^6/uL Hemoglobin 12.9 11.5-16.0 g/dL Hematocrit 39 35-52 % Mean Corpuscular Volume 91 80-99 fL Mean Corpuscular Hemoglobin 30 25-34 pg Mean Corpuscular Hemoglobin Concent 33 32-36 g/dL Red Cell Distribution Width 13.5 10.0-14.5 % Platelet Count 278 130-400 10^3/uL Mean Platelet Volume 9.5 9.0-12.2 fL Immature Granulocyte % (Auto) 0 % Neutrophils (%) (Auto) 64 42-75 % Lymphocytes (%) (Auto) 29 12-44 % Monocytes (%) (Auto) 6 0-12 % Eosinophils (%) (Auto) 1 0-10 % Basophils (%) (Auto) 1 0-10 % Neutrophils # (Auto) 6.0 1.8-7.8 10^3/uL Lymphocytes # (Auto) 2.7 1.0-4.0 10^3/uL Monocytes # (Auto) 0.6 0.0-1.0 10^3/uL Eosinophils # (Auto) 0.1 0.0-0.3 10^3/uL Basophils # (Auto) 0.1 0.0-0.1 10^3/uL Immature Granulocyte # (Auto) 0.0 0.0-0.1 10^3/uL Sodium Level 137 135-145 MMOL/L Potassium Level 4.5 3.6-5.0 MMOL/L Chloride Level 101 98-107 MMOL/L Carbon Dioxide Level 25 21-32 MMOL/L Anion Gap 11 5-14 MMOL/L Blood Urea Nitrogen 10 7-18 MG/DL Creatinine 0.51 L 0.60-1.30 MG/DL Estimat Glomerular Filtration Rate 133 BUN/Creatinine Ratio 20 Glucose Level 88 70-105 MG/DL Calcium Level 9.7 8.5-10.1 MG/DL Corrected Calcium 9.3 8.5-10.1 MG/DL Total Bilirubin 0.4 0.1-1.0 MG/DL Aspartate Amino Transf (AST/SGOT) 26 5-34 U/L Alanine Aminotransferase (ALT/SGPT) 38 0-55 U/L Alkaline Phosphatase 66 40-136 U/L Total Protein 7.3 6.4-8.2 GM/DL Albumin 4.5 3.2-4.5 GM/DL Lipase 37 8-78 U/L My Orders Orders - STEFANY CAMARENA MD Ua Culture If Indicated (09/15/22 11:50) Urine Bedside (09/15/22 11:50) Comprehensive Metabolic Panel (09/15/22 11:57) Lipase (09/15/22 11:57) Ed Iv/Invasive Line Start (09/15/22 11:57) Cbc With Automated Diff (09/15/22 11:57) Us Abdomen Limited 17899 (09/15/22 11:57) Ns Iv 1000 Ml (Sodium Chloride 0.9%) (09/15/22 11:59) Ondansetron Injection (Zofran Injectio (09/15/22 11:59) Pantoprazole Injection (Protonix Injecti (09/15/22 11:59) Ketorolac Injection (Toradol Injection) (09/15/22 11:59) Vital Signs/I&O 09/15/22 11:49 Temp 36.7 Pulse 89 Resp 16 B/P (MAP) 112/62 (79) Pulse Ox 100 O2 Delivery Room Air Admisison Planning May Need Admission (Planning): 12:00 Progress Progress Note #1: Progress Note Potential diagnosis of peptic ulcer disease, pancreatitis, gastritis, cholecystitis, diverticulitis, colitis, small bowel obstruction. Obtain peripheral IV access to check blood work for complete blood count, comprehensive metabolic profile, lipase. Urinalysis and bedside test to look for signs of infection and/or . Patient reports that she was started on Macrobid 2 days ago for UTI and yesterday started taking metronidazole for bacterial vaginosis. She states her last menstrual cycle was August 29 through September 03. She has not had anything to eat since around 6 PM yesterday. Will administer normal saline 1 L IV fluid bolus, Toradol 15 mg IV for pain, pantoprazole 40 mg IV for possible gastritis and peptic ulcer disease, Zofran 4 mg IV for nausea. Order ultrasound to evaluate for possible cholecystitis. If unable to obtain ultrasound or if the ultrasound is done but does not explain her symptoms will order a CT scan of the abdomen pelvis with IV contrast to help further evaluate her pain. Progress Note #2: Progress Note After medication and treatment here in the ED patient reported resolution of her symptoms. She was feeling much better. Her complete blood count does not show an elevated white blood cells to indicate an overwhelming infection. Her metabolic profile and lipase did not show acute significant abnormality with her labs to show signs of pancreatitis, electrolyte imbalance, renal failure, hepatic failure. Her urinalysis was concentrated to go along with dehydration as she had a specific gravity greater than 1.030. She was not showing bacteria or nitrates and leukocytes to indicate a UTI. test was negative. Progress Note #3: Progress Note I reviewed the radiologist report on the ultrasound of the abdomen. They did not appreciate any cholecystitis or bowel obstruction. Reassured patient and encouraged to take medicine for gastritis and acid reflux. Follow a liquid or bland diet to let her stomach settle down. Will prescribe Carafate 1 g p.o. 4 times daily and pantoprazole 40 mg once a day for acid. Counseled patient to make a follow-up appointment with her regular provider. She may need to have an EGD or scope done to look for signs of ulcers esophageal irritation. They may also want her to get a nuclear medicine scan such as a HIDA or PIPIDA scan. Diagnostic Imaging Diagonstic Imaging: Ultrasound Plain Films/CT/US/NM/MRI: abdomen Comments NAME: MISTI BAILON [facility] REC#: [id number] PT STATUS: REG ER : 1995 PHYSICIAN: STEFANY CAMARENA MD ADMIT DATE: 09/15/22/ER FS Signed Date of Exam:09/15/22 US ABDOMEN LIMITED 62018 PROCEDURE: US Abdomen, limited. TECHNIQUE: Multiple realtime grayscale images were obtained over the abdomen in various projections. INDICATION: Right upper quadrant pain. COMPARISON: 12/03/2018 FINDINGS: The liver is normal in size and echogenicity. There is no focal hepatic mass. The main portal vein is patent with antegrade flow. The gallbladder is distended without gallstones, wall thickening, or pericholecystic fluid. The common bile duct measures up to 0.3 cm in diameter. No intrahepatic biliary dilation. The visualized portions of the pancreas are normal. Portions of the head and tail are obscured by overlying bowel gas. The right kidney is normal in size. No hydronephrosis, shadowing calculi, or suspicious mass lesion. IMPRESSION: Normal right upper quadrant ultrasound. Dictated by: Dictated on workstation # [id number] Dict: 09/15/22 1252 Trans: 09/15/22 1253 [facility] [id number] Interpreted by: ORIANA CARRIZALES MD Electronically signed by: ORIANA CARRIZALES MD 09/15/22 1253 Reviewed: Reviewed by Me (I reviewed ultrasound report from radiologist at 1258) Departure Impression Primary Impression: Epigastric abdominal pain Additional Impression: Right upper quadrant abdominal pain Disposition: HOME, SELF-CARE Condition: Stable Departure-Patient Inst. Decision time for Depature: 13:18 Referrals: MARKEL BEAL APRN (PCP) Primary Care Physician LILLIANA CHANDLER MD (Family) Primary Care Physician Patient Instructions: Nausea and Vomiting, Adult ED, Gastritis ED, Abdominal Pain, Adult ED, Ulcer and Gastritis Diet Add. Discharge Instructions: Try to stay well-hydrated and drink plenty of fluids. Use the dissolving nausea tablets so keep your stomach settled so you can eat and drink better. Follow bland low-fat diet to help with your pain. Take the acid reducing medicine to help from a gastrointestinal ulcer standpoint. Check back with your primary providers in the 1 to refer you for endoscopy to look at the lining of your esophagus and stomach. All discharge instructions reviewed with patient and/or family. Voiced un derstanding. Scripts Sucralfate (Sucralfate) 1 Gram Tablet 1 GM PO ACHS for epigastric pain for 10 Days, #40 TAB 1 Refill Chew tablet to a slurry and then swallow Prov: STEFANY CAMARENA MD 09/15/22 Pantoprazole Sodium (Pantoprazole Sodium) 40 Mg Tablet.dr 40 MG PO DAILY for epigastric pain for 30 Days, #30 TAB 0 Refills Prov: STEFANY CAMARENA MD 09/15/22 Ondansetron (Ondansetron Odt) 4 Mg Tab.rapdis 4 MG PO Q6H PRN for NAUSEA/VOMITING for 5 Days, #20 TAB 0 Refills Prov: STEFANY CAMARENA MD 09/15/22 Work/School Note: Work Release Form Date Seen in the Emergency Department: Sep 15, 2022 Return to Work: Sep 18, 2022 Restrictions: Return-No Vomiting(24hrs) STEFANY CAMARENA MD Sep 15, 2022 11:59
[2022-09-15 12:00] LABS: BILIRUBIN,URINE NEGATIVE (NEGATIVE); CLARITY,URINE CLEAR; COLOR,URINE YELLOW; GLUCOSE, URINE (UA) TRACE (NEGATIVE); KETONES,URINE NEGATIVE (NEGATIVE); LEUKOCYTE ESTERASE ,URINE NEGATIVE (NEGATIVE); NITRITE,URINE NEGATIVE (NEGATIVE); PROTEIN,URINE NEGATIVE (NEGATIVE)
[2022-09-15 12:09] LABS: BACTERIA,URINE NEGATIVE /HPF; WBC,URINE RARE /HPF
[2022-09-15 12:10] LABS: AMORPHOUS SEDIMENT,UR FEW AMOR URATES /LPF
[2022-09-15 12:12] LABS: BASOPHILS # (AUTO) 0.1 10^3/uL (0.0-0.1); BASOPHILS % (AUTO) 1 % (0-10); EOSINOPHILS # (AUTO) 0.1 10^3/uL (0.0-0.3); EOSINOPHILS % (AUTO) 1 % (0-10); HEMATOCRIT 39 % (35-52); HEMOGLOBIN 12.9 g/dL (11.5-16.0); LYMPHOCYTES # (AUTO) 2.7 10^3/uL (1.0-4.0); LYMPHOCYTES % (AUTO) 29 % (12-44); MEAN CORPUSCULAR HEMOGLOBIN 30 pg (25-34); MEAN CORPUSCULAR HGB CONC 33 g/dL (32-36); MEAN CORPUSCULAR VOLUME 91 fL (80-99); MEAN PLATELET VOLUME 9.5 fL (9.0-12.2); MONOCYTES # (AUTO) 0.6 10^3/uL (0.0-1.0); MONOCYTES % (AUTO) 6 % (0-12); NEUTROPHILS % (AUTO) 64 % (42-75); PLATELET COUNT 278 10^3/uL (130-400); WHITE BLOOD COUNT 9.4 10^3/uL (4.3-11.0)
[2022-09-15 12:34] LABS: POTASSIUM 4.5 MMOL/L (3.6-5.0)
[2022-09-15 12:35] LABS: ALBUMIN 4.5 GM/DL (3.2-4.5); BILIRUBIN,TOTAL 0.4 MG/DL (0.1-1.0); CALCIUM 9.7 MG/DL (8.5-10.1); CREATININE SERUM 0.51 MG/DL (0.60-1.30); TOTAL PROTEIN 7.3 GM/DL (6.4-8.2)
--- NOTE | 2022-09-15 12:54 | Diagnostic Imaging Report ---
PROCEDURE: US Abdomen, limited. TECHNIQUE: Multiple realtime grayscale images were obtained over the abdomen in various projections. INDICATION: Right upper quadrant pain. COMPARISON: 12/03/2018 FINDINGS: The liver is normal in size and echogenicity. There is no focal hepatic mass. The main portal vein is patent with antegrade flow. The gallbladder is distended without gallstones, wall thickening, or pericholecystic fluid. The common bile duct measures up to 0.3 cm in diameter. No intrahepatic biliary dilation. The visualized portions of the pancreas are normal. Portions of the head and tail are obscured by overlying bowel gas. The right kidney is normal in size. No hydronephrosis, shadowing calculi, or suspicious mass lesion. IMPRESSION: Normal right upper quadrant ultrasound. Dictated by: Dictated on workstation # [id number]
[2022-09-15] MEDS ORDERED: SUCR1TAB PO (13:21)
[2022-09-15] MEDS ORDERED: ONDA4TAB11 PO (13:21)
[2022-09-15] MEDS ORDERED: PANT40TA52 PO (13:21)
== END 2022-09-15 13:52 | disposition home or self-care (01) ==
LOC: EDUNIT# 11:46 → ER FS 11:47
DX: R10.13 Epigastric pain (principal); R10.11 Right upper quadrant pain; N39.0 Urinary tract infection, site not specified; N76.0 Acute vaginitis; F17.290 Nicotine dependence, other tobacco product, uncomplicated; Z32.02 Encounter for pregnancy test, result negative; Z28.310 Unvaccinated for COVID-19
CPT/HCPCS: 36415; 76705; 80053; 81000; 83690; 84703; 85025

== ENCOUNTER → 2023-01-17 | Outpatient (CLI) | payer MEDICAID ==
[~2023-01-17] MED LIST changes: +PANT40TA52 PO; +SUCR1TAB PO
--- NOTE | 2023-01-17 16:37 | Diagnostic Imaging Report ---
EXAMINATION: Left elbow radiographs, 3 views. COMPARISON: Left elbow radiographs January 21, 2019. HISTORY: 27-year-old female, left elbow pain. FINDINGS: There is sideplate and screw fixation hardware at the level of the distal humerus. The hardware is intact. There are multiple small foreign bodies present which are also present on the comparison study. There is no cortical or aggressive bone destruction. There is no identified acute fracture. There is no elbow joint effusion. There is no joint space loss of the elbow joint. IMPRESSION: 1. Intact sideplate and screw fixation hardware at the level of the left distal humerus without complication. 2. Redemonstrated multiple small radiopaque foreign bodies unchanged since at least December 2018. 3. No interval acute osseous abnormality. 4. Unremarkable evaluation of the elbow joint. Dictated by: Dictated on workstation # [id number]
== END ==
LOC: RAD FS 14:19
PROVIDERS: ATTEND Registered Nurse Emergency
DX: M25.522 Pain in left elbow (principal)
CPT/HCPCS: 73080

== ENCOUNTER 2023-05-12 19:15 | Emergency (ER) | payer MEDICAID, OTHER ==
[~2023-05-12] VITALS: Ht 162.6 cm; Wt 70.2 kg
[2023-05-12 19:22] VITALS: BP 110/68
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
== END 2023-05-12 20:02 | disposition home or self-care (01) ==
LOC: EDUNIT# 19:15 → ER FS 19:17
DX: M79.642 Pain in left hand (principal); V89.2XXA Person injured in unspecified motor-vehicle accident, traffic, initial encounter
CPT/HCPCS: 73130

== ENCOUNTER 2023-05-16 12:08 | Emergency (ER) | payer OTHER, MEDICAID ==
[~2023-05-16] VITALS: Ht 162 cm; Wt 63.5 kg
[2023-05-16 12:10] VITALS: BP 109/65
[2023-05-16 12:39] LABS: BILIRUBIN,URINE NEGATIVE (NEGATIVE); CLARITY,URINE CLEAR; COLOR,URINE YELLOW; GLUCOSE, URINE (UA) NEGATIVE (NEGATIVE); KETONES,URINE NEGATIVE (NEGATIVE); LEUKOCYTE ESTERASE ,URINE NEGATIVE (NEGATIVE); NITRITE,URINE NEGATIVE (NEGATIVE); PROTEIN,URINE NEGATIVE (NEGATIVE)
[2023-05-16 12:49] LABS: BACTERIA,URINE MODERATE /HPF; RBC,URINE RARE /HPF; WBC,URINE 0-2 /HPF
[2023-05-16 12:59] LABS: AMPHETAMINE SCREEN, URINE NEGATIVE (NEGATIVE); BARBITURATE SCREEN URINE NEGATIVE (NEGATIVE); CANNABINOID SCREEN, URINE POSITIVE (NEGATIVE); COCAINE SCREEN URINE NEGATIVE (NEGATIVE); METHADONE STAT NEGATIVE (NEGATIVE); OPIATE SCREEN URINE NEGATIVE (NEGATIVE); OXYCODONE STAT NEGATIVE (NEGATIVE); PROPOXYPHENE STAT NEGATIVE (NEGATIVE); TRICYCLIC ANTIDEPRESSANTS SCRE NEGATIVE (NEGATIVE)
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
[2023-05-16] MEDS ORDERED: KETOROLAC INJ 30 MG/ML VIAL IM STA (13:33)
--- NOTE | 2023-05-16 14:08 | Diagnostic Imaging Report ---
EXAMINATION: CT chest without contrast. TECHNIQUE: Multiple contiguous axial images were obtained through the chest without the use of intravenous contrast. All CT scans use one or more of the following dose optimizing techniques: Automated exposure control, MA and/or KvP adjustment based on patient size and exam type or iterative reconstruction. HISTORY: Chest pain, recent chest injury. COMPARISON: 03/03/2016. FINDINGS: There is no edema or pneumonia. No pleural effusion. No pneumothorax. No suspicious nodules. There is no axillary or supraclavicular lymphadenopathy. There is no mediastinal lymphadenopathy. Heart size is normal. There are no coronary artery calcifications. No pericardial effusion. Aorta is normal in caliber. There is normal-appearing thymus in the anterior mediastinum. Limited views of the upper abdomen are unremarkable. There are no suspicious osseous lesions. No fracture is seen. IMPRESSION: 1. No acute abnormality in the chest. Dictated by: Dictated on workstation # [id number]
--- NOTE | 2023-05-16 14:16 | Diagnostic Imaging Report ---
PROCEDURE: CT lumbar spine without contrast. TECHNIQUE: Multiple contiguous axial images were obtained through the lumbar spine without the use of intravenous contrast. Sagittal and coronal reformations were then performed. Auto Exposure Controls were utilized during the CT exam to meet ALARA standards for radiation dose reduction. INDICATION: Back pain Comparison: None. FINDINGS: The lumbar lordosis is preserved. Mild multilevel disc height loss. No lytic or sclerotic bone lesions. No acute fracture or dislocation of the cervical spine. No high-density fluid within the spinal canal. No high-grade spinal canal or neuroforaminal stenosis. Included views of the abdomen demonstrates no significant abnormality. IMPRESSION: No acute fracture or dislocation of the lumbar spine. Dictated by: Dictated on workstation # [id number]
[2023-05-16] MEDS ORDERED: IBUP-1780 PO (14:26)
[2023-05-16] MEDS ORDERED: CYCL10TA25 PO (14:26)
== END 2023-05-16 14:36 | disposition home or self-care (01) ==
LOC: EDUNIT# 12:08 → ER FS 12:11
DX: S39.012A Strain of muscle, fascia and tendon of lower back, initial encounter (principal); S20.213A Contusion of bilateral front wall of thorax, initial encounter; F17.290 Nicotine dependence, other tobacco product, uncomplicated; V49.50XA Passenger injured in collision with unspecified motor vehicles in traffic accident, initial encounter; Y92.410 Unspecified street and highway as the place of occurrence of the external cause
CPT/HCPCS: 71250; 72131; 80306; 81000; 84703; 96372